=== PATIENT | male | born 1965 | race Caucasian/White ===

== ENCOUNTER 2017-07-23 12:50 | Emergency (ER) | payer MEDICARE ==
--- NOTE | 2017-07-23 13:18 | ERPHSYRPT ---
- History of Present Illness Time Seen by Provider: 07/23/17 13:07 Source: patient Exam Limitations: no limitations Patient Subjective Stated Complaint: pt here for a fall. pt states that stool gave out and he fell but states that he leaned over and fell, states [facility] put him on klonopin and he can not take it, but took it anyway. he states it made him sleepy. been on klonopin since wednesday.pt had recent dui. and out of half-way since april Triage Nursing Assessment: pt alert, slow to respond,walked in, resp easy, skin w/d,pink. no edema noted, knows birthday but not date today, states pt is alcoholic. Physician History: 51-year-old white male with history of schizophrenia, depression, borderline personality disorder, memory problems. Brought with his with complaint that the patient has been falling for 2 days she states that he has been placed on Klonopin. She states that she found him with a blue substance in the left side of his nose the other day. patient really denies any complaints that he feels like he is probably having an effect of Klonopin he recently been placed on Patient does have a history of alcoholism Past medical history patient denies heart problems lung problems high blood pressure diabetes kidney problems or liver problems he does state he has a history of alcoholism history of schizophrenia, depression, borderline personality disorder, and memory problems Timing/Duration: yesterday Severity: moderate Modifying Factors: Improves With: nothing Associated Symptoms: No nausea, No vomiting, No abdominal pain, No shortness of breath, No heartburn, No diaphoresis, No cough, No chills, No chest pain, No fever, No headaches, No loss of appetite, No malaise, No rash, No syncope, No seizure, No weakness Allergies/Adverse Reactions: No Known Drug Allergies Allergy (Unverified 07/23/17 13:07) Home Medications: HydrALAzine HCL 25 MG TAB [Apresoline 25 MG TABLET] 25 mg pe TID 07/23/17 [History] Mirtazapine [Remeron] 15 mg DAILY 07/23/17 [History] Olanzapine [Zyprexa] 20 mg DAILY 07/23/17 [History] Hx Influenza Vaccination/Date Given: Yes Hx Pneumococcal Vaccination/Date Given: No Immunizations Up to Date: Yes - Review of Systems Constitutional: No Fever, No Chills Eyes: No Symptoms Ears, Nose, & Throat: No Symptoms Respiratory: No Cough, No Dyspnea Cardiac: No Chest Pain, No Edema, No Syncope Abdominal/Gastrointestinal: No Abdominal Pain, No Nausea, No Vomiting, No Diarrhea Genitourinary Symptoms: No Dysuria Musculoskeletal: No Arthralgias, No Back Pain, No Neck Pain, No Deformity, No Fall, No Injury, No Joint Redness, No Joint Pain, No Joint Swelling, No Myalgias Skin: No Rash Neurological: Other (patient's states that the patient has been falling, states that he will lay down whereever and fall asleep), No Dizziness, No Focal Weakness, No Gait Changes, No Headache, No Irritability, No Lethargy, No Paralysis, No Parasthesia, No Seizure, No Sensory Changes, No Speech Changes, No Tics, No Tremors Psychological: Alcohol Abuse Endocrine: No Symptoms All Other Systems: Reviewed and Negative - Past Medical History Pertinent Past Medical History: Yes Neurological History: Other Psycho-Social History: Anxiety, Bipolar, Depression, Other Other Medical History: schizo ,memory issues - Past Surgical History Past Surgical History: Yes Other Surgical History: eye surgeryx2 hand surgery - Social History Smoking Status: Never smoker Exposure to second hand smoke: No Drug Use: none Patient Lives Alone: No - Nursing Vital Signs Nursing Vital Signs: Initial Vital Signs Temperature 97.9 F 07/23/17 12:57 Pulse Rate 72 07/23/17 12:57 Respiratory Rate 18 07/23/17 12:57 Blood Pressure 123/71 07/23/17 12:57 O2 Sat by Pulse Oximetry 93 L 07/23/17 12:57 Pain Scale Pain Intensity 0 - Physical Exam General Appearance: no apparent distress, alert Eye Exam: PERRL/EOMI, eyes nml inspection Ears, Nose, Throat Exam: normal ENT inspection, TMs normal, pharynx normal, moist mucous membranes Neck Exam: normal inspection, non-tender, supple, full range of motion Respiratory Exam: normal breath sounds, lungs clear, No respiratory distress Cardiovascular Exam: regular rate/rhythm, normal heart sounds, normal peripheral pulses Gastrointestinal/Abdomen Exam: soft Back Exam: normal inspection, normal range of motion, No CVA tenderness, No vertebral tenderness Extremity Exam: normal inspection, normal range of motion, pelvis stable Neurologic Exam: alert, cooperative, labor delivery rn II-XII nml as tested, normal mood/ affect, nml cerebellar function, No oriented x 3 (oriented to person and place) , No motor deficits, No sensory deficit, No facial droop, No slurred speech Skin Exam: normal color, warm, dry, No rash SpO2 Interpretation: normal (93%) SpO2: 93 Oxygen Delivery: Room Air - Course Nursing assessment & vital signs reviewed: Yes EKG Interpreted by Me: RATE (65 bpm), Sinus Rhythm, NORMAL AXIS, Other (EKG: Sinus rhythm, 65 beats per minute, normal axis, no acute ST or T wave changes noted) Ordered Tests: Active Orders 24 hr Category Date Time Status Accucheck STAT Care 07/23/17 13:12 Active EKG-ER Only STAT Care 07/23/17 13:12 Active ACETAMINOPHEN Stat Lab 07/23/17 13:20 Completed CBC W DIFF Stat Lab 07/23/17 13:20 Completed CMP Stat Lab 07/23/17 13:20 Completed ETHYL ALCOHOL Stat Lab 07/23/17 13:20 Completed SALICYLATE Stat Lab 07/23/17 13:20 Completed UA W/RFX UR CULTURE Stat Lab 07/23/17 13:20 Completed Urine Triage Profile Stat Lab 07/23/17 13:20 Completed Lab/Rad Data: Laboratory Result Diagrams 07/23/17 13:20 07/23/17 13:20 Laboratory Results 07/23/17 07/23/17 07/23/17 Range/Units 13:20 13:20 13:20 WBC (4.0-10.5) K/mm3 RBC (4.1-5.6) M/mm3 Hgb (12.5-18.0) gm/dl Hct (42-50) % MCV (78-100) fl MCH (26-32) pg MCHC (32-36) g/dl RDW (11.5-14.0) % Plt Count (150-450) K/mm3 MPV (6-9.5) fl Gran % (36.0-66.0) % Lymphocytes % (24.0-44.0) % Monocytes % (0.0-12.0) % Eosinophils % (0.00-5.0) % Basophils % (0.0-0.4) % Basophils # (0-0.4) Sodium 144 (136-145) mEq/L Potassium 3.8 (3.5-5.1) mEq/L Chloride 108 H (98-107) mEq/L Carbon Dioxide 24.8 (21-32) mEq/L Anion Gap 14.9 (5-15) MEQ/L BUN 15 (9-20) mg/dL Creatinine 1.36 H (0.55-1.30) mg/dl Estimated GFR 58 ML/MIN Glucose 101 (70-110) MG/DL Calcium 8.7 (8.5-10.1) mg/dL Total Bilirubin 0.40 (0.2-1.0) mg/dL AST 23 (15-37) U/L ALT 49 (12-78) U/L Alkaline Phosphatase 69 (46-116) U/L Serum Total Protein 6.7 (6.4-8.2) gm/dL Albumin 3.6 (3.4-5.0) g/dL Ur Collection Type VOID Urine Color YELLOW (YELLOW) Urine Appearance CLEAR (CLEAR) Urine pH 5.0 (5-6) Ur Specific [place] 1.015 (1.005-1.025) Urine Protein NEGATIVE (Negative) Urine Ketones NEGATIVE (NEGATIVE) Urine Blood NEGATIVE (0-5) Akira/ul Urine Nitrite NEGATIVE (NEGATIVE) Urine Bilirubin NEGATIVE (NEGATIVE) Urine Urobilinogen NORMAL (0-1) mg/dL Ur Leukocyte Esterase NEGATIVE (NEGATIVE) Urine Culture Reflexed NO (NO) Urine Glucose NEGATIVE (NEGATIVE) mg/dL Salicylates < 2.8 L (2.8-20.0) mg/dl Urine Opiates Level NEG. (NEGATIVE) Ur Methadone NEG. (NEGATIVE) Acetaminophen < 2.0 L (10-30) ug/ml Urine Barbiturates NEG. (NEGATIVE) Ur Phencyclidine (PCP) NEG. (NEGATIVE) Urine Amphetamine NEG. (NEGATIVE) U Benzodiazepine Level POS. (NEGATIVE) Urine Cocaine NEG. (NEGATIVE) Urine Marijuana (THC) NEG. (NEGATIVE) Ethyl Alcohol < 0.010 (0.00-0.01) % Specimen Received 07/23/17 1315 07/23/17 Range/Units 13:20 WBC 7.9 (4.0-10.5) K/mm3 RBC 4.35 (4.1-5.6) M/mm3 Hgb 13.6 (12.5-18.0) gm/dl Hct 41.6 L (42-50) % MCV 95.6 (78-100) fl MCH 31.3 (26-32) pg MCHC 32.7 (32-36) g/dl RDW 13.3 (11.5-14.0) % Plt Count 258 (150-450) K/mm3 MPV 10.2 H (6-9.5) fl Gran % 66.3 H (36.0-66.0) % Lymphocytes % 22.2 L (24.0-44.0) % Monocytes % 9.2 (0.0-12.0) % Eosinophils % 1.9 (0.00-5.0) % Basophils % 0.4 (0.0-0.4) % Basophils # 0.03 (0-0.4) Sodium (136-145) mEq/L Potassium (3.5-5.1) mEq/L Chloride (98-107) mEq/L Carbon Dioxide (21-32) mEq/L Anion Gap (5-15) MEQ/L BUN (9-20) mg/dL Creatinine (0.55-1.30) mg/dl Estimated GFR ML/MIN Glucose (70-110) MG/DL Calcium (8.5-10.1) mg/dL Total Bilirubin (0.2-1.0) mg/dL AST (15-37) U/L ALT (12-78) U/L Alkaline Phosphatase (46-116) U/L Serum Total Protein (6.4-8.2) gm/dL Albumin (3.4-5.0) g/dL Ur Collection Type Urine Color (YELLOW) Urine Appearance (CLEAR) Urine pH (5-6) Ur Specific [place] (1.005-1.025) Urine Protein (Negative) Urine Ketones (NEGATIVE) Urine Blood (0-5) Akira/ul Urine Nitrite (NEGATIVE) Urine Bilirubin (NEGATIVE) Urine Urobilinogen (0-1) mg/dL Ur Leukocyte Esterase (NEGATIVE) Urine Culture Reflexed (NO) Urine Glucose (NEGATIVE) mg/dL Salicylates (2.8-20.0) mg/dl Urine Opiates Level (NEGATIVE) Ur Methadone (NEGATIVE) Acetaminophen (10-30) ug/ml Urine Barbiturates (NEGATIVE) Ur Phencyclidine (PCP) (NEGATIVE) Urine Amphetamine (NEGATIVE) U Benzodiazepine Level (NEGATIVE) Urine Cocaine (NEGATIVE) Urine Marijuana (THC) (NEGATIVE) Ethyl Alcohol (0.00-0.01) % Specimen Received - Progress Progress: improved Progress Note: 07/23/17 14:08 51-year-old white male noted to be a somnolent sleeping in various places falling and going on for several days. Patient apparently has been taking Clonopin when she is according to his not supposed to be on. When I talk to the patient is alert he is oriented person and place she really doesn't know the time he has full range of motion all extremities surveillance system monitor are equal and symmetrical 5 over 5 speech is normal finger-nose within normal limits cranial nerves II through XII are intact there is no facial droop. Patient's EKG sinus rhythm 54 beats per minutes normal axis no acute ST or T wave changes are noted Patients CBC essentially normal chemistry is essentially normal with the exception of a creatinine of 1.36 BUN is 15 acetaminophen level of is less than 2 salicylate level less than 2.8 alcohol level less than 0.010 urine drug screen positive for benzodiazepine The patient's nurse practitioner at [facility] Madeleine Morrison has called over she states that the patient was not supposed to be on Klonopin he is to stop taking it. She also requested that he decreases hydroxyzine from 25 mg orally 3 times a day to 25 mg orally daily. Patient denies any suicidal or homicidal ideation. - Departure Time of Disposition: 14:11 Departure Disposition: Home Clinical Impression: Mental status change Qualifiers: Altered mental status type: unspecified Qualified Code(s): R41.82 - Altered mental status, unspecified Medication side effect Qualifiers: Encounter type: initial encounter Qualified Code(s): T88.7XXA - Unspecified adverse effect of drug or medicament, initial encounter Condition: Fair Critical Care Time: No Referrals: MICHAEL GILMAN, [Primary Care Provider] - Additional Instructions: Return home. No driving today no hazardous activity no heights do not engage in any activity which may harm you or anyone else. Stop Klonopin. Decrease hydroxyzine to 25 mg orally daily. Continue other medications as prescribed by your family doctor/psychiatrist. Plenty of fluids. Rest at home today. Follow-up with [facility] at your appointment return for acute distress or for severe symptoms. .
[2017-07-23 13:36] LABS: BASOPHIL % 0.4 % (0.0-0.4); Eosinophil % 1.9 % (0.00-5.0); Granulocytes % 66.3 % (36.0-66.0); Lymphocytes % 22.2 % (24.0-44.0); Mean Cell Volume 95.6 fl (78-100); Mean Corpuscular Hemoglobin 31.3 pg (26-32); Mean Platelet Volume 10.2 fl (6-9.5); Monocytes % 9.2 % (0.0-12.0); Platelet Count 258 K/mm3 (150-450); Red Blood Count 4.35 M/mm3 (4.1-5.6); Red Cell Distribution Width 13.3 % (11.5-14.0); White Blood Count 7.9 K/mm3 (4.0-10.5)
[2017-07-23 13:38] LABS: Collection Type VOID
[2017-07-23 13:39] LABS: ADD URINE CULTURE? NO (NO); Bilirubin NEGATIVE (NEGATIVE); Blood NEGATIVE Ery/ul (0-5); COMPLETE URINE MICROSCOPIC? NO; Glucose NEGATIVE (NEGATIVE); Leukocyte Esterase NEGATIVE (NEGATIVE)
[2017-07-23 13:55] LABS: ACETAMINOPHEN < 2.0 ug/ml (10-30); ALBUMIN 3.6 g/dL (3.4-5.0); ALKALINE PHOSPHATASE 69 U/L (46-116); ANION GAP 14.9 MEQ/L (5-15); BLOOD UREA NITROGEN 15 mg/dL (9-20); CHLORIDE 108 mEq/L (98-107); Carbon Dioxide 24.8 mEq/L (21-32); ETHYL ALCOHOL < 0.010 % (0.00-0.01); Glucose 101 MG/DL (70-110); Potassium 3.8 mEq/L (3.5-5.1); SGOT/AST 23 U/L (15-37); SGPT/ALT 49 U/L (12-78); SODIUM 144 mEq/L (136-145); Total Protein 6.7 gm/dL (6.4-8.2)
[2017-07-23 14:41] VITALS: BP 121/73; PULSE 69; O2SAT 95
== END 2017-07-23 14:20 | disposition home or self-care (01) ==
LOC: ED 12:50
DX: R41.82 Altered mental status, unspecified (principal); T88.7XXA Unspecified adverse effect of drug or medicament, initial encounter
CPT/HCPCS: 36415; 80053; 80307; 81002; 82962; 85025; 93005; 99283; 99284; G0481

== ENCOUNTER 2021-02-26 10:26 | Day surgery (SDC) | payer MEDICARE ==
[2021-02-26] MEDS ORDERED: Xylocaine 1% Vial 30 ML PF IJ ONE (10:27)
[2021-02-26] MEDS ORDERED: Depo-Medrol 40 MG/ML IM ONE (10:27)
[2021-02-26] MEDS ORDERED: Sodium Chloride 0.9(Preservative Free) 10 ML IJ ONE (10:27)
[2021-02-26] MEDS ORDERED: DIPRIVAN 200 MG/20 ML IV ONE (11:20)
--- NOTE | 2021-02-26 12:37 | XRAY ---
Indication: Lumbar JF. Intraoperative fluoroscopy provided for 17 seconds. Single lateral digital spot submitted for interpretation demonstrates posterior needle tip projecting just posterior to the L4-L5 interspace. Small amount of contrast injected for needle tip placement. Correlate with intraoperative findings/report.
--- NOTE | 2021-02-26 12:43 | XRAY ---
17 seconds fluoroscopy time in surgery for lumbar JF.
[2021-02-26] MEDS ORDERED: Lactated Ringers 1,000 ML IV ONE (15:28)
== END 2021-02-26 11:52 | disposition home or self-care (01) ==
LOC: SDC-PAIN 10:26
PROVIDERS: ATTEND Psychiatry & Neurology Pain Medicine
DX: M54.16 Radiculopathy, lumbar region (principal); Z79.899 Other long term (current) drug therapy
CPT/HCPCS: 62323; 72020; 77003; J1030; J2001; J2704; Q9966

== ENCOUNTER 2021-03-19 09:52 | Day surgery (SDC) | payer MEDICARE ==
[2021-03-19] MEDS ORDERED: Depo-Medrol 40 MG/ML IM ONE (09:53)
[2021-03-19] MEDS ORDERED: LIDOCAINE HCL 2% 100 MG/5 ML IJ ONE (09:53)
--- NOTE | 2021-03-19 13:10 | XRAY ---
Indication: Bilateral L4-S1 MBB. Intraoperative fluoroscopy provided for 21 seconds. Single digital spot image submitted for interpretation demonstrate posterior needle tips projecting over the expected left and right L4-S1 nerve roots. Correlate with intraoperative findings/report.
--- NOTE | 2021-03-19 13:15 | XRAY ---
21 seconds fluoroscopy time in surgery for bilateral L4-S1 MBB.
[2021-03-19] MEDS ORDERED: Lactated Ringers 1,000 ML IV ONE (15:40)
== END 2021-03-19 11:51 | disposition home or self-care (01) ==
LOC: SDC-PAIN 09:52
PROVIDERS: ATTEND Psychiatry & Neurology Pain Medicine
DX: M47.816 Spondylosis without myelopathy or radiculopathy, lumbar region (principal); F41.9 Anxiety disorder, unspecified; F32.9 Major depressive disorder, single episode, unspecified; Z79.899 Other long term (current) drug therapy
CPT/HCPCS: 64493; 64494; 72020; 77002; J1030

== ENCOUNTER 2021-04-24 13:26 | Emergency (ER) | payer MEDICARE ==
--- NOTE | 2021-04-24 13:36 | ERPHSYRPT ---
- History of Present Illness Time Seen by Provider: 04/24/21 13:35 Source: patient Exam Limitations: no limitations Physician History: This is a 55-year-old obese white male who presents with weakness and cough over of 4-week period of time. He has been seen 3 times in the outpatient clinic setting. Patient states his cough is improving but he just feels drained. He has had no fevers or chills. He has no chest pain. He has no abdominal pain. He has had no nausea vomiting or diarrhea. He was seen last Wednesday prior to this evaluation, and COVID-19 test returned as negative. However he is still fatigued. His significant other has similar symptoms. Timing/Duration: week(s) (4) Severity: mild Associated Symptoms: cough, weakness, No nausea (To moderate), No vomiting, No abdominal pain, No shortness of breath, No chest pain Allergies/Adverse Reactions: No Known Drug Allergies Allergy (Unverified 07/23/17 13:07) Home Medications: HydrALAzine HCL 25 MG TAB [Apresoline 25 MG TABLET] 25 mg pe TID 07/23/17 [History] Mirtazapine [Remeron] 15 mg DAILY 07/23/17 [History] OLANZapine [Zyprexa] 20 mg DAILY 07/23/17 [History] Hx Influenza Vaccination/Date Given: Yes Hx Pneumococcal Vaccination/Date Given: No Travel Risk - International Travel Have you traveled outside of the country in past 3 weeks: No - Coronavirus Screening Are you exhibiting any of the following symptoms?: No Symptoms: Cough: New Onset - Review of Systems Constitutional: Weakness Eyes: No Symptoms Ears, Nose, & Throat: No Symptoms Respiratory: Cough Cardiac: No Symptoms Abdominal/Gastrointestinal: No Symptoms Genitourinary Symptoms: No Symptoms Musculoskeletal: No Symptoms Skin: No Symptoms Neurological: No Symptoms Psychological: No Symptoms Endocrine: No Symptoms Hematologic/Lymphatic: No Symptoms Immunological/Allergic: No Symptoms All Other Systems: Reviewed and Negative - Past Medical History Pertinent Past Medical History: Yes Neurological History: No Pertinent History Cardiac History: High Cholesterol Respiratory History: No Pertinent History Endocrine Medical History: No Pertinent History Musculoskeletal History: Degenerative Disk Disease Psycho-Social History: Anxiety, Bipolar, Depression, Other Other Medical History: SCHIZOPHRENIA, ANXIETY/DEPRESSION, ROSUVASTATIN, BUPROPRION HCL, GERD. SX HX: RIGHT HAND SURGERY DUE TO TRAUMA HYPOTHENAR REGION. 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 - Past Surgical History Past Surgical History: Yes Other Surgical History: eye surgeryx2 hand surgery - Social History Smoking Status: Never smoker Exposure to second hand smoke: No Drug Use: none Patient Lives Alone: No - Nursing Vital Signs Nursing Vital Signs: Initial Vital Signs Temperature 97.0 F 04/24/21 13:44 Pulse Rate 73 04/24/21 13:44 Respiratory Rate 20 04/24/21 13:44 Blood Pressure 106/67 04/24/21 13:44 O2 Sat by Pulse Oximetry 96 04/24/21 13:44 Pain Scale Pain Intensity 0 - Physical Exam General Appearance: no apparent distress, alert, anxiety, obese Eye Exam: PERRL/EOMI, eyes nml inspection Ears, Nose, Throat Exam: normal ENT inspection, moist mucous membranes Neck Exam: normal inspection, non-tender, supple, full range of motion Respiratory Exam: normal breath sounds, lungs clear, airway intact, No chest tenderness, No respiratory distress Cardiovascular Exam: regular rate/rhythm, normal heart sounds, normal peripheral pulses Gastrointestinal/Abdomen Exam: soft, normal bowel sounds, No tenderness, No guarding Rectal Exam: not done Back Exam: normal inspection, normal range of motion, No CVA tenderness, No v ertebral tenderness Extremity Exam: normal inspection, normal range of motion, pelvis stable Neurologic Exam: alert, oriented x 3, cooperative, windows infrastructure engineer II-XII nml as tested, normal mood/affect, nml cerebellar function, nml station & gait, sensation nml Skin Exam: normal color, warm, dry Lymphatic Exam: No adenopathy SpO2 Interpretation: normal O2 Delivery: Room Air - Course Nursing assessment & vital signs reviewed: Yes Ordered Tests: Active Orders 24 hr Category Date Time Status Chief Medical Technologist STAT Care 04/24/21 14:12 Active EKG-ER Only STAT Care 04/24/21 14:11 Active IV Insertion STAT Care 04/24/21 14:11 Active IV Insertion STAT Care 04/24/21 14:11 Active Pulse Oximetry (ED) STAT Care 04/24/21 14:11 Active CHEST 1 VIEW (PORTABLE) Stat Exams 04/24/21 14:12 Completed CBC W DIFF Stat Lab 04/24/21 14:45 Completed CMP Stat Lab 04/24/21 14:45 Completed D-DIMER QUANTITATIVE Stat Lab 04/24/21 14:45 Completed Lactic Acid Stat Lab 04/24/21 14:11 Completed Lactic Acid Stat Lab 04/24/21 17:10 Received Kay Screen Stat Lab 04/24/21 14:45 Completed NT PRO BNP Stat Lab 04/24/21 14:45 Completed T4 (Thyroxine) Stat Lab 04/24/21 14:45 Completed TROPONIN Q3H Lab 04/24/21 14:45 Completed TROPONIN Q3H Lab 04/24/21 17:15 Ordered TROPONIN Q3H Lab 04/24/21 20:15 Ordered TROPONIN Q3H Lab 04/24/21 23:15 Ordered TROPONIN Q3H Lab 04/25/21 02:15 Ordered TSH [TSH, 3RD Generation] Stat Lab 04/24/21 14:45 Completed UA W/RFX UR CULTURE Stat Lab 04/24/21 16:03 Completed Urine Triage Profile Stat Lab 04/24/21 16:03 Ordered Medication Summary Discontinued Medications Generic Name Dose Route Start Last Admin Trade Name Zunilda PRN Reason Stop Dose Admin Sodium Chloride 1,000 mls @ 999 mls/hr 04/24/21 14:11 04/24/21 17:15 Sodium Chloride 0.9% 1000 Ml IV 04/24/21 15:11 Infused .Q1H1M STA Infusion Sodium Chloride Confirm 04/24/21 15:13 Sodium Chloride 0.9% 1000 Ml Administered 04/24/21 15:14 Dose 1,000 mls @ ud .ROUTE .K-MED ONE Lab/Rad Data: Laboratory Result Diagrams 04/24/21 14:45 04/24/21 14:45 Laboratory Results 04/24/21 04/24/21 04/24/21 Range/Units 16:03 14:45 14:45 WBC (4.0-10.5) K/mm3 RBC (4.1-5.6) M/mm3 Hgb (12.5-18.0) gm/dl Hct (42-50) % MCV (78-100) fl MCH (26-32) pg MCHC (32-36) g/dl RDW (11.5-14.0) % Plt Count (150-450) K/mm3 MPV (7.5-11.0) fl Gran % (36.0-66.0) % Eos # (Auto) (0-0.5) Absolute Lymphs (auto) (1.0-4.6) Absolute Monos (auto) (0.0-1.3) Lymphocytes % (24.0-44.0) % Monocytes % (0.0-12.0) % Eosinophils % (0.00-5.0) % Basophils % (0.0-0.4) % Absolute Granulocytes (1.4-6.9) Basophils # (0-0.4) D-Dimer (215-500) ng/mL Sodium (137-145) mmol/L Potassium (3.5-5.1) mmol/L Chloride (98-107) mmol/L Carbon Dioxide (22-30) mmol/L Anion Gap (5-15) MEQ/L BUN (9-20) mg/dL Creatinine (0.66-1.25) mg/dL Estimated GFR ML/MIN Glucose (74-106) mg/dL Lactic Acid (0.4-2.0) Calcium (8.4-10.2) mg/dL Total Bilirubin (0.2-1.3) mg/dL AST (17-59) U/L ALT (0-50) U/L Alkaline Phosphatase (38-126) U/L Troponin I (0.000-0.034) ng/mL NT-Pro-B Natriuret Pep (0-900) pg/mL Serum Total Protein (6.3-8.2) g/dL Albumin (3.5-5.0) g/dL Thyroxine (T4) 10.7 (5.53-10.96) ug/dL TSH 3rd Generation (0.47-4.68) mIU/L Urine Color YELLOW (YELLOW) Urine Appearance CLEAR (CLEAR) Urine pH 5.0 (5-6) Ur Specific [place] 1.020 (1.005-1.025) Urine Protein NEGATIVE (Negative) Urine Ketones SMALL (NEGATIVE) Urine Blood NEGATIVE (0-5) Akira/ul Urine Nitrite NEGATIVE (NEGATIVE) Urine Bilirubin NEGATIVE (NEGATIVE) Urine Urobilinogen NEGATIVE (0-1) mg/dL Ur Leukocyte Esterase NEGATIVE (NEGATIVE) Urine WBC (Auto) 0-2 (0-5) /HPF Urine RBC (Auto) NONE (0-2) /HPF U Epithel Cells (Auto) NONE (FEW) /HPF Urine Mucus (Auto) SLIGHT (NEGATIVE) /HPF Urine Culture Reflexed NO (NO) Urine Glucose NEGATIVE (NEGATIVE) mg/dL Monoscreen POSITIVE (Negative) 04/24/21 04/24/21 04/24/21 Range/Units 14:45 14:45 14:45 WBC (4.0-10.5) K/mm3 RBC (4.1-5.6) M/mm3 Hgb (12.5-18.0) gm/dl Hct (42-50) % MCV (78-100) fl MCH (26-32) pg MCHC (32-36) g/dl RDW (11.5-14.0) % Plt Count (150-450) K/mm3 MPV (7.5-11.0) fl Gran % (36.0-66.0) % Eos # (Auto) (0-0.5) Absolute Lymphs (auto) (1.0-4.6) Absolute Monos (auto) (0.0-1.3) Lymphocytes % (24.0-44.0) % Monocytes % (0.0-12.0) % Eosinophils % (0.00-5.0) % Basophils % (0.0-0.4) % Absolute Granulocytes (1.4-6.9) Basophils # (0-0.4) D-Dimer < 215 L (215-500) ng/mL Sodium (137-145) mmol/L Potassium (3.5-5.1) mmol/L Chloride (98-107) mmol/L Carbon Dioxide (22-30) mmol/L Anion Gap (5-15) MEQ/L BUN (9-20) mg/dL Creatinine (0.66-1.25) mg/dL Estimated GFR ML/MIN Glucose (74-106) mg/dL Lactic Acid (0.4-2.0) Calcium (8.4-10.2) mg/dL Total Bilirubin (0.2-1.3) mg/dL AST (17-59) U/L ALT (0-50) U/L Alkaline Phosphatase (38-126) U/L Troponin I < 0.012 (0.000-0.034) ng/mL NT-Pro-B Natriuret Pep (0-900) pg/mL Serum Total Protein (6.3-8.2) g/dL Albumin (3.5-5.0) g/dL Thyroxine (T4) (5.53-10.96) ug/dL TSH 3rd Generation 2.690 (0.47-4.68) mIU/L Urine Color (YELLOW) Urine Appearance (CLEAR) Urine pH (5-6) Ur Specific [place] (1.005-1.025) Urine Protein (Negative) Urine Ketones (NEGATIVE) Urine Blood (0-5) Akira/ul Urine Nitrite (NEGATIVE) Urine Bilirubin (NEGATIVE) Urine Urobilinogen (0-1) mg/dL Ur Leukocyte Esterase (NEGATIVE) Urine WBC (Auto) (0-5) /HPF Urine RBC (Auto) (0-2) /HPF U Epithel Cells (Auto) (FEW) /HPF Urine Mucus (Auto) (NEGATIVE) /HPF Urine Culture Reflexed (NO) Urine Glucose (NEGATIVE) mg/dL Monoscreen (Negative) 04/24/21 04/24/21 04/24/21 Range/Units 14:45 14:45 14:11 WBC 12.7 H (4.0-10.5) K/mm3 RBC 4.46 (4.1-5.6) M/mm3 Hgb 14.4 (12.5-18.0) gm/dl Hct 44.2 (42-50) % MCV 99.1 (78-100) fl MCH 32.3 H (26-32) pg MCHC 32.6 (32-36) g/dl RDW 14.8 H (11.5-14.0) % Plt Count 263 (150-450) K/mm3 MPV 9.7 (7.5-11.0) fl Gran % 75.5 H (36.0-66.0) % Eos # (Auto) 0.11 (0-0.5) Absolute Lymphs (auto) 1.97 (1.0-4.6) Absolute Monos (auto) 1.00 (0.0-1.3) Lymphocytes % 15.5 L (24.0-44.0) % Monocytes % 7.9 (0.0-12.0) % Eosinophils % 0.9 (0.00-5.0) % Basophils % 0.2 (0.0-0.4) % Absolute Granulocytes 9.63 H (1.4-6.9) Basophils # 0.02 (0-0.4) D-Dimer (215-500) ng/mL Sodium 139 (137-145) mmol/L Potassium 4.2 (3.5-5.1) mmol/L Chloride 103 (98-107) mmol/L Carbon Dioxide 22 (22-30) mmol/L Anion Gap 18.0 H (5-15) MEQ/L BUN 18 (9-20) mg/dL Creatinine 1.24 (0.66-1.25) mg/dL Estimated GFR > 60.0 ML/MIN Glucose 123 H (74-106) mg/dL Lactic Acid 2.7 H (0.4-2.0) Calcium 9.6 (8.4-10.2) mg/dL Total Bilirubin 0.50 (0.2-1.3) mg/dL AST 72 H (17-59) U/L ALT 201 H (0-50) U/L Alkaline Phosphatase 101 (38-126) U/L Troponin I (0.000-0.034) ng/mL NT-Pro-B Natriuret Pep 23.5 (0-900) pg/mL Serum Total Protein 7.3 (6.3-8.2) g/dL Albumin 4.3 (3.5-5.0) g/dL Thyroxine (T4) (5.53-10.96) ug/dL TSH 3rd Generation (0.47-4.68) mIU/L Urine Color (YELLOW) Urine Appearance (CLEAR) Urine pH (5-6) Ur Specific [place] (1.005-1.025) Urine Protein (Negative) Urine Ketones (NEGATIVE) Urine Blood (0-5) Akira/ul Urine Nitrite (NEGATIVE) Urine Bilirubin (NEGATIVE) Urine Urobilinogen (0-1) mg/dL Ur Leukocyte Esterase (NEGATIVE) Urine WBC (Auto) (0-5) /HPF Urine RBC (Auto) (0-2) /HPF U Epithel Cells (Auto) (FEW) /HPF Urine Mucus (Auto) (NEGATIVE) /HPF Urine Culture Reflexed (NO) Urine Glucose (NEGATIVE) mg/dL Monoscreen (Negative) - Progress Progress: improved, re-examined Progress Note: 07/15/21 15:54 Chest x-ray shows no obvious acute infiltrate. The left costophrenic angle is not completely included in the film. Counseled pt/family regarding: lab results, diagnosis, need for follow-up, rad results - Departure Departure Disposition: Home Clinical Impression: Mononucleosis, Viral syndrome Condition: Stable Critical Care Time: No Referrals: JAVI BEJARANO [Primary Care Provider] - Additional Instructions: Drink plenty of fluids. Take your medication as prescribed. Follow-up with your primary care physician for further management.
[2021-04-24] MEDS ORDERED: Sodium Chloride 0.9% 1000 ML 1,000 ML IV STA (14:11)
--- NOTE | 2021-04-24 14:52 | XRAY ---
Indication: Cough. Comparison: April 11, 2021. Portable chest is limited as left costophrenic angle not completely included. Remaining heart and lungs normal. Bony thorax intact again with mild degenerative changes.
[2021-04-24 14:54] LABS: Absolute Neutrophil Ct (ANC) 9.63 (1.4-6.9); BASOPHIL % 0.2 % (0.0-0.4); Basophil (Absolute #) 0.02 (0-0.4); Eosinophil % 0.9 % (0.00-5.0); Eosinophil (Absolute #) 0.11 (0-0.5); Hematocrit 44.2 % (42-50); Hemoglobin 14.4 gm/dl (12.5-18.0); Lymphocyte (Absolute #) 1.97 (1.0-4.6); Lymphocytes % 15.5 % (24.0-44.0); Mean Cell Volume 99.1 fl (78-100); Mean Corpuscular Hemoglobin 32.3 pg (26-32); Mean Corpuscular Hgb Concent. 32.6 g/dl (32-36); Mean Platelet Volume 9.7 fl (7.5-11.0); Monocytes % 7.9 % (0.0-12.0); Neutrophil % 75.5 % (36.0-66.0); Platelet Count 263 K/mm3 (150-450); Red Blood Count 4.46 M/mm3 (4.1-5.6); Red Cell Distribution Width 14.8 % (11.5-14.0); White Blood Count 12.7 K/mm3 (4.0-10.5)
[2021-04-24] MEDS ORDERED: Sodium Chloride 0.9% 1000 ML 1,000 ML ONE (15:13)
[2021-04-24 15:15] LABS: ALBUMIN 4.3 g/dL (3.5-5.0); ALKALINE PHOSPHATASE 101 U/L (38-126); BLOOD UREA NITROGEN 18 mg/dL (9-20); CHLORIDE 103 mmol/L (98-107); Calcium 9.6 mg/dL (8.4-10.2); Carbon Dioxide 22 mmol/L (22-30); Creatinine 1 1.24 mg/dL (0.66-1.25); EST GLOMERULAR FILTRATION RATE > 60.0 ML/MIN; Glucose 123 mg/dL (74-106); NT PRO BNP 23.5 pg/mL (0-900); Potassium 4.2 mmol/L (3.5-5.1); SGOT/AST 72 U/L (17-59); SGPT/ALT 201 U/L (0-50); SODIUM 139 mmol/L (137-145); Total Protein 7.3 g/dL (6.3-8.2)
[2021-04-24 16:31] LABS: Appearance CLEAR (CLEAR); Bilirubin NEGATIVE (NEGATIVE); Blood NEGATIVE Ery/ul (0-5); Glucose NEGATIVE (NEGATIVE); Ketones SMALL (NEGATIVE); Leukocyte Esterase NEGATIVE (NEGATIVE); Mucus SLIGHT /HPF (NEGATIVE); Nitrite NEGATIVE (NEGATIVE); Protein,Urine Dip NEGATIVE (Negative); Urobilinogen NEGATIVE mg/dL (0-1); WBC 0-2 /HPF (0-5)
[2021-04-24 17:46] LABS: Amphetamine,Urine NEGATIVE (NEGATIVE); Barbiturate,Urine NEGATIVE (NEGATIVE); Benzodiazepine,Urine NEGATIVE (NEGATIVE); Cocaine,Urine NEGATIVE (NEGATIVE); Methadone,Urine NEGATIVE (NEGATIVE); Opiate,Urine NEGATIVE (NEGATIVE); PCP,Urine NEGATIVE (NEGATIVE); THC,Urine NEGATIVE (NEGATIVE)
[2021-04-24 18:28] VITALS: BP 137/83; PULSE 70; O2SAT 94
== END 2021-04-24 18:28 | disposition home or self-care (01) ==
LOC: ED 13:26
DX: B27.90 Infectious mononucleosis, unspecified without complication (principal); B34.9 Viral infection, unspecified; R53.1 Weakness; Z79.899 Other long term (current) drug therapy
CPT/HCPCS: 36000; 36415; 71045; 80053; 80307; 81001; 83605; 83880; 84436; 84443; 84484; 85025; 85379; 86308; 93005; 93041; 94760; 96374; 99284

== ENCOUNTER 2021-06-04 13:26 | Day surgery (SDC) | payer MEDICARE ==
[2021-06-04] MEDS ORDERED: BUPIVACAINE 0.5% VIAL IJ ONE (13:27)
[2021-06-04] MEDS ORDERED: Depo-Medrol 40 MG/ML IM ONE (13:27)
[2021-06-04] MEDS ORDERED: Lactated Ringers 1,000 ML IV ONE (14:07)
[2021-06-04] MEDS ORDERED: DIPRIVAN 200 MG/20 ML IV ONE (14:42)
--- NOTE | 2021-06-04 16:58 | XRAY ---
Indication: Bilateral L4-S1 MBB. Intraoperative fluoroscopy provided for 33 seconds. Single digital spot image submitted for interpretation demonstrates posterior needle tips projecting over the expected left and right L4-S1 nerve roots. Correlate with intraoperative findings/report.
--- NOTE | 2021-06-04 17:04 | XRAY ---
33 seconds fluoroscopy time in surgery for bilateral L4-S1 MBB.
== END 2021-06-04 15:15 | disposition home or self-care (01) ==
LOC: SDC-PAIN 13:26
PROVIDERS: ATTEND Psychiatry & Neurology Pain Medicine
DX: M47.816 Spondylosis without myelopathy or radiculopathy, lumbar region (principal); Z79.899 Other long term (current) drug therapy
CPT/HCPCS: 64493; 64494; 72020; 77002; J1030; J2704

== ENCOUNTER 2021-07-02 13:01 | Day surgery (SDC) | payer MEDICARE ==
[2021-07-02] MEDS ORDERED: Depo-Medrol 40 MG/ML IM ONE (13:02)
[2021-07-02] MEDS ORDERED: Xylocaine 1% Vial 30 ML PF IJ ONE (13:02)
[2021-07-02] MEDS ORDERED: BUPIVACAINE 0.5% VIAL IJ ONE (13:02)
[2021-07-02] MEDS ORDERED: DIPRIVAN 200 MG/20 ML IV ONE ×2 (14:44→14:55)
[2021-07-02] MEDS ORDERED: TORAdol 30 mg Injection ONE (15:05)
[2021-07-02] MEDS ORDERED: Lactated Ringers 1,000 ML IV ONE (16:16)
--- NOTE | 2021-07-03 11:20 | XRAY ---
25 seconds fluoroscopy time in surgery for left L4-S1 RFA.
--- NOTE | 2021-07-05 23:00 | XRAY ---
Indication: Left L4-S1 RFA. Intraoperative fluoroscopy was provided for 25 seconds. 3 digital spot images submitted for interpretation demonstrate posterior needle tips projected over the expected course of the left L4-S1 nerve roots. Correlate with intraoperative findings/report.
== END 2021-07-02 15:17 | disposition home or self-care (01) ==
LOC: SDC-PAIN 13:01
PROVIDERS: ATTEND Psychiatry & Neurology Pain Medicine
DX: M47.816 Spondylosis without myelopathy or radiculopathy, lumbar region (principal); Z79.899 Other long term (current) drug therapy
CPT/HCPCS: 64635; 64636; 72100; 77002; J1030; J1885; J2001; J2704

== ENCOUNTER 2021-07-09 12:00 | Day surgery (SDC) | payer MEDICARE ==
[2021-07-09] MEDS ORDERED: BUPIVACAINE 0.5% VIAL IJ ONE (12:01)
[2021-07-09] MEDS ORDERED: Xylocaine 1% Vial 30 ML PF IJ ONE (12:01)
[2021-07-09] MEDS ORDERED: Depo-Medrol 40 MG/ML IM ONE (12:01)
[2021-07-09] MEDS ORDERED: DIPRIVAN 200 MG/20 ML IV ONE (13:35)
[2021-07-09] MEDS ORDERED: TORAdol 30 mg Injection ONE (13:52)
--- NOTE | 2021-07-09 16:28 | XRAY ---
Indication: Right L4-S1 RFA. Intraoperative fluoroscopy provided for 22 seconds. 3 digital spot image submitted for interpretation demonstrates posterior needle tips projecting over the expected right L4-S1 nerve roots. Correlate with intraoperative findings/report.
--- NOTE | 2021-07-09 16:42 | XRAY ---
22 seconds of fluoroscopy was used in surgery for a right L4-S1 RFA.
[2021-07-09] MEDS ORDERED: Lactated Ringers 1,000 ML IV ONE (17:28)
== END 2021-07-09 14:07 | disposition home or self-care (01) ==
LOC: SDC-PAIN 12:00
PROVIDERS: ATTEND Psychiatry & Neurology Pain Medicine
DX: M47.816 Spondylosis without myelopathy or radiculopathy, lumbar region (principal); Z79.899 Other long term (current) drug therapy
CPT/HCPCS: 64635; 64636; 72100; 77002; J1030; J1885; J2001; J2704

== ENCOUNTER 2022-04-01 11:06 | Emergency (ER) | payer MEDICARE ==
[2022-04-01] MEDS ORDERED: PERCOCET TABLET 5/325MG PO ONE (11:12)
[2022-04-01] MEDS ORDERED: BABY ASPIRIN 81 MG CHEW PO ONE (11:12)
[2022-04-01] MEDS ORDERED: Sodium Chloride 0.9% 1000 ML 1,000 ML IV SCH (11:15)
[2022-04-01] MEDS ORDERED: BABY ASPIRIN 81 MG CHEW ONE (11:20)
[2022-04-01] MEDS ORDERED: Sodium Chloride 0.9% 1000 ML 1,000 ML ONE (11:20)
[2022-04-01 11:23] LABS: Absolute Neutrophil Ct (ANC) 7.22 x10^3/uL (1.4-6.9); Basophil (Absolute #) 0.05 x10^3/uL (0-0.4); Eosinophil (Absolute #) 0.11 x10^3/uL (0-0.5); Hematocrit 47.7 % (42-50); Hemoglobin 15.9 g/dL (12.5-18.0); Lymphocyte (Absolute #) 2.73 x10^3/uL (1.0-4.6); Lymphocytes % 24.9 % (24.0-44.0); Mean Corpuscular Hemoglobin 31.7 pg (26-32); Mean Corpuscular Hgb Concent. 33.3 g/dL (32-36); Mean Platelet Volume 9.7 fL (7.5-11.0); Monocyte (Absolute #) 0.82 x10^3/uL (0.0-1.3); Monocytes % 7.5 % (0.0-12.0); Neutrophil % 65.7 % (36.0-66.0); Platelet Count 306 x10^3/uL (150-450); Red Blood Count 5.02 x10^6/uL (4.1-5.6); Red Cell Distribution Width 14.8 % (11.5-14.0)
--- NOTE | 2022-04-01 11:42 | XRAY ---
Indication: Chest pain. Comparison: April 24, 2021. Portable chest again demonstrates minimal left base fibrosis/scarring. No focal infiltrate, consolidation, or large effusion. Heart not enlarged. Bony thorax intact again with mild degenerative changes. Impression: Continue nonacute chest with chronic features.
[2022-04-01 11:48] LABS: ALBUMIN 4.5 g/dL (3.5-5.0); ALKALINE PHOSPHATASE 59 U/L (38-126); AMYLASE 60 U/L (30-110); ANION GAP 14.4 MEQ/L (5-15); BLOOD UREA NITROGEN 13 mg/dL (9-20); CHLORIDE 105 mmol/L (98-107); Calcium 9.5 mg/dL (8.4-10.2); Carbon Dioxide 24 mmol/L (22-30); Creatinine 1 1.08 mg/dL (0.66-1.25); EST GLOMERULAR FILTRATION RATE > 60.0 ML/MIN; Glucose 129 mg/dL (74-106); LIPASE 56 U/L (23-300); MAGNESIUM 2.1 mg/dL (1.6-2.3); NT PRO BNP 39.6 pg/mL (0-900); Potassium 3.7 mmol/L (3.5-5.1); SGOT/AST 31 U/L (17-59); SGPT/ALT 58 U/L (0-50); SODIUM 139 mmol/L (137-145); Total Protein 7.4 g/dL (6.3-8.2)
[2022-04-01 11:49] LABS: INR 0.97 (0.8-3.0); PROTIME 10.3 SECONDS (9.4-12.5)
[2022-04-01 12:33] LABS: D-DIMER QUANTITATIVE 0.19 mg/L (0.0-0.50)
--- NOTE | 2022-04-01 13:28 | XRAY ---
Indication: Chronic cough. Chest and throat tightness 3 months. Multiple contiguous axial images obtained through the chest without contrast. Comparison: None Lungs demonstrates minimal bibasilar fibrosis/scarring and minimal bilateral dependent atelectasis. No suspicious pulmonary mass, infiltrate, effusion, or pneumothorax. Heart not enlarged. Aorta is normal in course and caliber. No pathologic mediastinal lymphadenopathy. Bony thorax intact with minimal degenerative changes throughout the spine. Limited upper abdomen demonstrates fatty liver. Impression: 1. Bibasilar fibrosis/scarring, degenerative spondylosis, and fatty liver. 2. Remaining CT chest without contrast exam is negative.
[2022-04-01 13:30] VITALS: PULSE 52
--- NOTE | 2022-04-01 13:55 | ERPHSYRPT ---
- History of Present Illness Time Seen by Provider: 04/01/22 11:15 Historian: patient Patient Subjective Stated Complaint: Pt c/o of chest pain that radiates to the neck for the past 5 days Triage Nursing Assessment: Pt brought self to the ER, hypertensive, rates pain as 5/10, pulses normal, slight edema to dejan lower extremity, annoying persistant cough, no difficulties with breathing, large round abdomen, doesn't appear to be in any distress Physician History: Patient is a 56-year-old male who presents with chest pain on and off for a week and a half. He has some tightness in his chest that goes up into his neck he is also had a chronic cough for more than a month and is seen his PCP x3 for that. He also has had some shortness of breath some nausea but no diaphoresis and he has had a stress test in the past which was negative risk factors include family history and cholesterol. Timing/Duration: day(s) (10) Quality: tightness Location: substernal Chest Pain Radiation: neck Severity of Pain-Max: mild Severity of Pain-Current: mild Modifying Factors: Improves With: coughing Associated Symptoms: cough, diaphoresis Prior Chest Pain/Cardiac Workup: stress test Nitro Today/Relief: no nitro taken today Aspirin Treatment Today: no aspirin today Allergies/Adverse Reactions: No Known Drug Allergies Allergy (Verified 04/01/22 11:19) Home Medications: Asenapine Maleate [Saphris] 2.5 mg SL HS 04/01/22 [History] Cholecalciferol (Vitamin D3) [Vitamin D] 5,000 unit PO 3XW 04/01/22 [History] Cyanocobalamin (Vitamin B-12) [Vitamin B-12] 500 mcg PO DAILY 04/01/22 [History] Levocetirizine Dihydrochloride [Xyzal] 5 mg PO DAILY 04/01/22 [History] Levothyroxine Sodium 100 mcg PO DAILY 04/01/22 [History] Omeprazole 20 mg PO DAILY 04/01/22 [History] Oxycodone HCl/Acetaminophen [Oxycodone-Acetaminophen 5-325] 1 each PO TID PRN 04/01/22 [History] Rosuvastatin Calcium 10 mg PO HS 04/01/22 [History] Sitagliptin Phosphate [Januvia] 100 mg PO DAILY 04/01/22 [History] Solriamfetol HCl [Sunosi] 1 tab PO DAILY 04/01/22 [History] Testosterone Cypionate 1 ml IM UD 04/01/22 [History] buPROPion HCL [Bupropion Xl] 300 mg PO QAM 04/01/22 [History] Hx Tetanus, Diphtheria Vaccination/Date Given: Yes Hx Influenza Vaccination/Date Given: Yes Hx Pneumococcal Vaccination/Date Given: No Travel Risk - International Travel Have you traveled outside of the country in past 3 weeks: No - Coronavirus Screening Are you exhibiting any of the following symptoms?: No Close contact with a COVID-19 positive Pt in past 14-21 Days: No - Vaccine Status Have you recieved a Covid-19 vaccination: Yes Line [employer]: [employer] - Vaccination Dates Date of 2cond Vaccination (if applicable): 02/06/21 - Review of Systems Constitutional: No Fever, No Chills Eyes: No Symptoms Ears, Nose, & Throat: No Symptoms Respiratory: Cough, No Dyspnea Cardiac: Chest Pain (Tightness), No Edema, No Syncope Abdominal/Gastrointestinal: No Abdominal Pain, No Nausea, No Vomiting, No Diarrhea Genitourinary Symptoms: No Dysuria Musculoskeletal: No Back Pain, No Neck Pain Skin: No Rash Neurological: No Dizziness, No Focal Weakness, No Sensory Changes Psychological: No Symptoms Endocrine: No Symptoms All Other Systems: Reviewed and Negative - Past Medical History Pertinent Past Medical History: Yes Neurological History: No Pertinent History Cardiac History: High Cholesterol Respiratory History: No Pertinent History Endocrine Medical History: No Pertinent History Musculoskeletal History: Degenerative Disk Disease Psycho-Social History: Anxiety, Bipolar, Depression, Other Other Medical History: SCHIZOPHRENIA, ANXIETY/DEPRESSION, GERD. SX HX: RIGHT HAND SURGERY DUE TO TRAUMA. 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 - Past Surgical History Past Surgical History: Yes Other Surgical History: eye surgeryx2 hand surgery - Social History Smoking Status: Never smoker Exposure to second hand smoke: No Drug Use: none Patient Lives Alone: No - Nursing Vital Signs Nursing Vital Signs: Initial Vital Signs Temperature 98.8 F 04/01/22 11:08 Pulse Rate 72 04/01/22 11:08 Respiratory Rate 17 04/01/22 11:08 Blood Pressure 163/87 04/01/22 11:08 O2 Sat by Pulse Oximetry 96 04/01/22 11:08 Pain Scale Pain Intensity 5 - Physical Exam General Appearance: no apparent distress, alert Eye Exam: PERRL/EOMI, eyes nml inspection Ears, Nose, Throat Exam: normal ENT inspection, moist mucous membranes Neck Exam: normal inspection, non-tender, supple, full range of motion Respiratory Exam: normal breath sounds, lungs clear, No respiratory distress Cardiovascular Exam: regular rate/rhythm, normal heart sounds Gastrointestinal/Abdomen Exam: soft, No tenderness, No mass Back Exam: normal inspection, No CVA tenderness, No vertebral tenderness Extremity Exam: normal inspection, normal range of motion Neurologic Exam: alert, oriented x 3, cooperative, normal mood/affect, sensation nml, No motor deficits Skin Exam: normal color, warm, dry SpO2: 95 - Radiology Exams Chest X-ray Interpretation: Negative - CT Exams Chest CT Interpretation: Other (Some pulmonary fibrosis but no other acute changes) Ordered Tests: Active Orders 24 hr Category Date Time Status Double Backer STAT Care 04/01/22 11:19 Active EKG-ER Only STAT Care 04/01/22 11:12 Active IV Insertion STAT Care 04/01/22 11:12 Active CHEST 1 VIEW (PORTABLE) Stat Exams 04/01/22 11:13 Completed CHEST WITHOUT CONTRAST [CT] Stat Exams 04/01/22 12:10 Completed AMYLASE Stat Lab 04/01/22 11:15 Completed CBC W DIFF Stat Lab 04/01/22 11:15 Completed CMP Stat Lab 04/01/22 11:15 Completed D-DIMER QUANTITATIVE Stat Lab 04/01/22 11:15 Completed LIPASE Stat Lab 04/01/22 11:15 Completed Lactic Acid Stat Lab 04/01/22 11:12 Completed MAGNESIUM Stat Lab 04/01/22 11:15 Completed NT PRO BNP Stat Lab 04/01/22 11:15 Completed PROTIME WITH INR Stat Lab 04/01/22 11:15 Completed TROPONIN Q3H Lab 04/01/22 11:15 Completed TROPONIN Q3H Lab 04/01/22 13:20 Received TROPONIN Q3H Lab 04/01/22 17:15 Ordered TROPONIN Q3H Lab 04/01/22 20:15 Ordered TROPONIN Q3H Lab 04/01/22 23:15 Ordered UA W/RFX CULTURE Stat Lab 04/01/22 Ordered Urine Triage Profile Stat Lab 04/01/22 11:13 Ordered Medication Summary Generic Name Dose Route Start Last Admin Trade Name Zunilda PRN Reason Stop Dose Admin Sodium Chloride 1,000 mls @ 50 mls/hr 04/01/22 11:15 04/01/22 11:23 Sodium Chloride 0.9% 1000 Ml IV 05/01/22 11:14 50 mls/hr .Q20H AGUS Administration Discontinued Medications Generic Name Dose Route Start Last Admin Trade Name Zunilda PRN Reason Stop Dose Admin Aspirin 324 mg 04/01/22 11:12 04/01/22 11:22 Aspirin 81 Mg Tab.Chew PO 04/01/22 11:13 324 mg STAT ONE Administration Aspirin Confirm 04/01/22 11:20 Aspirin 81 Mg Tab.Chew Administered 04/01/22 11:21 Dose 324 mg .ROUTE .STK-MED ONE Oxycodone/Acetaminophen 1 tab 04/01/22 11:12 Oxycodone Hcl/Apap 5 Mg/325 Mg Tablet PO 04/01/22 11:13 STAT ONE Lab/Rad Data: Laboratory Result Diagrams 04/01/22 11:15 04/01/22 11:15 Laboratory Results 04/01/22 04/01/22 04/01/22 Range/Units 11:15 11:15 11:15 WBC (4.0-10.5) x10^3/uL RBC (4.1-5.6) x10^6/uL Hgb (12.5-18.0) g/dL Hct (42-50) % MCV (78-100) fL MCH (26-32) pg MCHC (32-36) g/dL RDW (11.5-14.0) % Plt Count (150-450) x10^3/uL MPV (7.5-11.0) fL Gran % (36.0-66.0) % Immature Gran % (Auto) (0.00-0.4) % Nucleat RBC Rel Count (0.00-0.1) % Eos # (Auto) (0-0.5) x10^3/uL Immature Gran # (Auto) (0.00-0.03) x10^3u/L Absolute Lymphs (auto) (1.0-4.6) x10^3/uL Absolute Monos (auto) (0.0-1.3) x10^3/uL Absolute Nucleated RBC (0.00-0.01) x10^3u/L Lymphocytes % (24.0-44.0) % Monocytes % (0.0-12.0) % Eosinophils % (0.00-5.0) % Basophils % (0.0-0.4) % Absolute Granulocytes (1.4-6.9) x10^3/uL Basophils # (0-0.4) x10^3/uL PT 10.3 (9.4-12.5) SECONDS INR 0.97 (0.8-3.0) D-Dimer 0.19 (0.0-0.50) mg/L Sodium 139 (137-145) mmol/L Potassium 3.7 (3.5-5.1) mmol/L Chloride 105 (98-107) mmol/L Carbon Dioxide 24 (22-30) mmol/L Anion Gap 14.4 (5-15) MEQ/L BUN 13 (9-20) mg/dL Creatinine 1.08 (0.66-1.25) mg/dL Estimated GFR > 60.0 ML/MIN Glucose 129 H (74-106) mg/dL Lactic Acid (0.4-2.0) Calcium 9.5 (8.4-10.2) mg/dL Magnesium 2.1 (1.6-2.3) mg/dL Total Bilirubin 1.00 (0.2-1.3) mg/dL AST 31 (17-59) U/L ALT 58 H (0-50) U/L Alkaline Phosphatase 59 (38-126) U/L Troponin I < 0.012 (0.000-0.034) ng/mL NT-Pro-B Natriuret Pep 39.6 (0-900) pg/mL Serum Total Protein 7.4 (6.3-8.2) g/dL Albumin 4.5 (3.5-5.0) g/dL Amylase 60 (30-110) U/L Lipase 56 (23-300) U/L 04/01/22 04/01/22 Range/Units 11:15 11:12 WBC 11.0 H (4.0-10.5) x10^3/uL RBC 5.02 (4.1-5.6) x10^6/uL Hgb 15.9 (12.5-18.0) g/dL Hct 47.7 (42-50) % MCV 95.0 (78-100) fL MCH 31.7 (26-32) pg MCHC 33.3 (32-36) g/dL RDW 14.8 H (11.5-14.0) % Plt Count 306 (150-450) x10^3/uL MPV 9.7 (7.5-11.0) fL Gran % 65.7 (36.0-66.0) % Immature Gran % (Auto) 0.4 (0.00-0.4) % Nucleat RBC Rel Count 0.0 (0.00-0.1) % Eos # (Auto) 0.11 (0-0.5) x10^3/uL Immature Gran # (Auto) 0.04 H (0.00-0.03) x10^3u/L Absolute Lymphs (auto) 2.73 (1.0-4.6) x10^3/uL Absolute Monos (auto) 0.82 (0.0-1.3) x10^3/uL Absolute Nucleated RBC 0.00 (0.00-0.01) x10^3u/L Lymphocytes % 24.9 (24.0-44.0) % Monocytes % 7.5 (0.0-12.0) % Eosinophils % 1.0 (0.00-5.0) % Basophils % 0.5 (0.0-0.4) % Absolute Granulocytes 7.22 H (1.4-6.9) x10^3/uL Basophils # 0.05 (0-0.4) x10^3/uL PT (9.4-12.5) SECONDS INR (0.8-3.0) D-Dimer (0.0-0.50) mg/L Sodium (137-145) mmol/L Potassium (3.5-5.1) mmol/L Chloride (98-107) mmol/L Carbon Dioxide (22-30) mmol/L Anion Gap (5-15) MEQ/L BUN (9-20) mg/dL Creatinine (0.66-1.25) mg/dL Estimated GFR ML/MIN Glucose (74-106) mg/dL Lactic Acid 1.1 (0.4-2.0) Calcium (8.4-10.2) mg/dL Magnesium (1.6-2.3) mg/dL Total Bilirubin (0.2-1.3) mg/dL AST (17-59) U/L ALT (0-50) U/L Alkaline Phosphatase (38-126) U/L Troponin I (0.000-0.034) ng/mL NT-Pro-B Natriuret Pep (0-900) pg/mL Serum Total Protein (6.3-8.2) g/dL Albumin (3.5-5.0) g/dL Amylase (30-110) U/L Lipase (23-300) U/L - Progress Progress: improved Air Movement: good Blood Culture(s) Obtained: No Antibiotics given: No - Departure Departure Disposition: Home Clinical Impression: Bronchitis Condition: Stable Critical Care Time: No Referrals: JAVI BEJARANO [Primary Care Provider] - Follow up/PCP as directed Instructions: Chest Pain (DC) Prescriptions: Cephalexin Mh 500 mg [Keflex 500 mg] 500 mg PO QID #40 cap
[2022-04-01 14:02] VITALS: BP 138/75; O2SAT 96
== END 2022-04-01 14:07 | disposition home or self-care (01) ==
LOC: ED 11:06
DX: R07.9 Chest pain, unspecified (principal); J40 Bronchitis, not specified as acute or chronic; R05.3 Chronic cough; R06.02 Shortness of breath; R11.0 Nausea; E78.5 Hyperlipidemia, unspecified; Z79.891 Long term (current) use of opiate analgesic; Z79.84 Long term (current) use of oral hypoglycemic drugs; Z79.899 Other long term (current) drug therapy
CPT/HCPCS: 36000; 36415; 71045; 71250; 80053; 82150; 83605; 83690; 83735; 83880; 84484; 85025; 85379; 85610; 93005; 93041; 99284; A9270-GY

== ENCOUNTER 2022-04-26 21:15 | Emergency (ER) | payer MEDICARE ==
[2022-04-26] MEDS ORDERED: DUONEB 0.5-3 MG/3 ml Neb IH ONE ×2 (21:57→22:02)
--- NOTE | 2022-04-26 22:08 | ERPHSYRPT ---
- History of Present Illness Time Seen by Provider: 04/26/22 21:31 Source: patient Exam Limitations: no limitations Patient Subjective Stated Complaint: pt states "I have been having this cough for about 5 months now. I have seen my family doctor and she said it is just al lergies. They changed my allergic medication and it helped some. I have been on lots of different antibiotics and they help for a little and then it comes back again." Triage Nursing Assessment: Pt ambulatory to bed by self, pt alert and oriented x3, pt c/o nonproductive cough x5 months, pt has seen family doctor and was told it was just allergies and have changed to different allergy medicine that hasn't helped, no one else in the house is sick, pt has been afebrile at home and is currently afebrile here Physician History: 56 years old male presented to the ER with chief complaint of cough for almost 5 months off and on, have been evaluated by primary care, pulmonology with no significant relief. Patient was seen in the ER few weeks ago with negative work-up. [facility] changed allergy medication which did help for a few weeks but again having dry cough without difficulty breathing. He has a constant desire to clear his throat. No fever chills or chest pain reported. Patient reports he is here to have TB test done. Timing/Duration: week(s), intermittent, worse Cough Quality/Degree: mild, moderate, dry cough Possible Cause: frequent episodes Modifying Factors: Improves With: nothing Associated Symptoms: cough, No fever, No chills, No chest pain/soreness, No dizziness, No headache, No lightheadedness, No muscle aches, No nasal congestion, No nasal drainage, No shortness of breath, No sinus infection, No sore throat, No wheezing Allergies/Adverse Reactions: No Known Drug Allergies Allergy (Verified 04/26/22 21:28) Home Medications: Asenapine Maleate [Saphris] 2.5 mg SL HS 04/01/22 [History] Cholecalciferol (Vitamin D3) [Vitamin D] 5,000 unit PO 3XW 04/01/22 [History] Cyanocobalamin (Vitamin B-12) [Vitamin B-12] 500 mcg PO DAILY 04/01/22 [History] Levocetirizine Dihydrochloride [Xyzal] 5 mg PO DAILY 04/01/22 [History] Levothyroxine Sodium 100 mcg PO DAILY 04/01/22 [History] Omeprazole 20 mg PO DAILY 04/01/22 [History] Oxycodone HCl/Acetaminophen [Oxycodone-Acetaminophen 5-325] 1 each PO TID PRN 04/01/22 [History] Rosuvastatin Calcium 10 mg PO HS 04/01/22 [History] Sitagliptin Phosphate [Januvia] 100 mg PO DAILY 04/01/22 [History] Solriamfetol HCl [Sunosi] 1 tab PO DAILY 04/01/22 [History] Testosterone Cypionate 1 ml IM UD 04/01/22 [History] buPROPion HCL [Bupropion Xl] 300 mg PO QAM 04/01/22 [History] Ziprasidone 20 mg [Geodon 20 MG Capsule] 20 mg PO BID 04/26/22 [History] Hx Tetanus, Diphtheria Vaccination/Date Given: Yes Hx Influenza Vaccination/Date Given: No Hx Pneumococcal Vaccination/Date Given: No Immunizations Up to Date: Yes Travel Risk - International Travel Have you traveled outside of the country in past 3 weeks: No - Coronavirus Screening Are you exhibiting any of the following symptoms?: No Close contact with a COVID-19 positive Pt in past 14-21 Days: No - Vaccine Status Have you recieved a Covid-19 vaccination: Yes [employer]: [employer] - Vaccination Dates Date of 2cond Vaccination (if applicable): 2020 - Review of Systems Constitutional: No Symptoms Eyes: No Symptoms Ears, Nose, & Throat: No Symptoms Respiratory: Cough Cardiac: No Symptoms Abdominal/Gastrointestinal: No Symptoms Genitourinary Symptoms: No Symptoms Musculoskeletal: No Symptoms Skin: No Symptoms Neurological: No Symptoms Psychological: No Symptoms Hematologic/Lymphatic: No Symptoms Immunological/Allergic: No Symptoms - Past Medical History Pertinent Past Medical History: Yes Neurological History: No Pertinent History ENT History: No Pertinent History Cardiac History: High Cholesterol Respiratory History: No Pertinent History Endocrine Medical History: No Pertinent History Musculoskeletal History: Degenerative Disk Disease Psycho-Social History: Anxiety, Bipolar, Depression, Other Other Medical History: SCHIZOPHRENIA, ANXIETY/DEPRESSION, GERD. SX HX: RIGHT HAND SURGERY DUE TO TRAUMA. 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 - Past Surgical History Past Surgical History: Yes Other Surgical History: eye surgeryx2 hand surgery - Social History Smoking Status: Never smoker Exposure to second hand smoke: No Drug Use: none Patient Lives Alone: No - Nursing Vital Signs Nursing Vital Signs: Initial Vital Signs Temperature 98.6 F 04/26/22 21:30 Pulse Rate 58 L 04/26/22 21:30 Respiratory Rate 18 04/26/22 21:30 Blood Pressure 137/61 04/26/22 21:30 O2 Sat by Pulse Oximetry 95 04/26/22 21:30 Pain Scale Pain Intensity 5 - Physical Exam General Appearance: no apparent distress, alert Eye Exam: PERRL/EOMI Ears, Nose, Throat Exam: normal ENT inspection, TMs normal, pharynx normal Neck Exam: normal inspection, non-tender, supple, full range of motion Respiratory Exam: normal breath sounds, lungs clear Cardiovascular Exam: regular rate/rhythm, normal heart sounds Back Exam: normal inspection, normal range of motion Extremity Exam: normal inspection, normal range of motion Neurologic Exam: alert, oriented x 3, cooperative Skin Exam: normal color SpO2 Interpretation: normal SpO2: 93 O2 Delivery: Room Air Ordered Tests: Medication Summary Discontinued Medications Generic Name Dose Route Start Last Admin Trade Name Freq PRN Reason Stop Dose Admin Albuterol/Ipratropium 3 ml 04/26/22 21:57 Ipratropium/Albuterol Sulfate 3 Ml Ampul.Neb IH 04/26/22 21:58 STAT ONE - Progress Progress: re-examined Air Movement: good Progress Note: 04/26/22 22:10 I have offered him imaging and work-up which patient refused and he was interested in doing TB testing which is unfortunately not done at the ER. He is given breathing treatment and we will give him inhaler to use as needed and outpatient follow-up with primary care and pulmonology. Blood Culture(s) Obtained: No Antibiotics given: No Counseled pt/family regarding: diagnosis, need for follow-up - Departure Departure Disposition: Home Clinical Impression: Chronic cough Condition: Stable Critical Care Time: No Referrals: JAVI BEJARANO [Primary Care Provider] - Follow Up with PCP/3 days Instructions: Cough, Adult (DC) Additional Instructions: Follow-up with primary care and pulmonology for reevaluation. Return to ER for worsening cough, difficulty breathing, fever chills etc. Prescriptions: Albuterol Sulfate [Albuterol Sulfate Hfa] 8.5 gm IH Q6H PRN 7 Days #1 inh PRN Reason: Cough
[2022-04-26 22:20] VITALS: BP 118/56; PULSE 58; O2SAT 94
== END 2022-04-26 22:24 | disposition home or self-care (01) ==
LOC: ED 21:15
DX: R05.3 Chronic cough (principal); E78.5 Hyperlipidemia, unspecified; Z79.899 Other long term (current) drug therapy
CPT/HCPCS: 94640; 99281; A9270-GY

== ENCOUNTER 2022-06-29 16:44 | Emergency (ER) | payer MEDICARE ==
--- NOTE | 2022-06-29 17:10 | ERPHSYRPT ---
- History of Present Illness Time Seen by Provider: 06/29/22 17:00 Source: patient Exam Limitations: no limitations Patient Subjective Stated Complaint: PT states "I am having allot of stress at home. They are threatening to throw me out of my house and I do not know anyone and have no relatives and I am stressed. I am not suicidal, I am not homicidal I am just stressed" Triage Nursing Assessment: PT presented alert and oriented X 3, skin pwd. Pt anxious, able to speak in clear full sentences. Pt in no apparent respiratory distress. Pt able to sit calmly on the bed. Physician History: This is a 56-year-old obese white male patient of [facility] who presents with complaint of his mind racing, extremely stressed and over the top anxiety. Patient was placed on an anxiety medicine approximately a few weeks ago and then stopped it a week and a half ago. He looked up the side effects and the pharmacology of that medication and decided on his own to stop it. Patient states that he is not suicidal he is not homicidal. He is being threatened to be kicked out of his home and does not know any individuals. He was not sure what to do. Patient has a history of hypothyroidism, hyperl ipidemia, gastroesophageal reflux disease anxiety issues and schizophrenia. Patient states that he was dropped off here at the hospital emergency department but they are planning on picking him up at the time of the discharge from the emergency department. Patient does not have chest pain. He has no shortness of breath. He has no abdominal pain. He has no nausea vomiting or diarrhea. Timing/Duration: today Severity: moderate Associated Symptoms: denies symptoms Allergies/Adverse Reactions: No Known Drug Allergies Allergy (Verified 04/26/22 21:28) Home Medications: Levothyroxine Sodium 100 mcg PO DAILY 04/01/22 [History] Omeprazole 20 mg PO DAILY 04/01/22 [History] Oxycodone HCl/Acetaminophen [Oxycodone-Acetaminophen 5-325] 1 each PO TID PRN 04/01/22 [History] Rosuvastatin Calcium 10 mg PO HS 04/01/22 [History] Testosterone Cypionate 1 ml IM UD 04/01/22 [History] Ziprasidone 20 mg [Geodon 20 MG Capsule] 40 mg PO BID 04/26/22 [History] Levocetirizine Dihydrochloride [Xyzal] 5 mg PO DAILY 06/29/22 [History] Magnesium Oxide [Magnesium] 250 mg PO DAILY 06/29/22 [History] Sitagliptin Phosphate [Januvia] 100 mg PO DAILY 06/29/22 [History] Hx Tetanus, Diphtheria Vaccination/Date Given: Yes Hx Influenza Vaccination/Date Given: No Hx Pneumococcal Vaccination/Date Given: No Immunizations Up to Date: Yes Travel Risk - International Travel Have you traveled outside of the country in past 3 weeks: No - Coronavirus Screening Are you exhibiting any of the following symptoms?: No Close contact with a COVID-19 positive Pt in past 14-21 Days: No - Vaccine Status Have you recieved a Covid-19 vaccination: Yes 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 - Vaccination Dates Date of 2cond Vaccination (if applicable): 2020 - Review of Systems Constitutional: Other (Very anxious) Eyes: No Symptoms Ears, Nose, & Throat: No Symptoms Respiratory: No Symptoms Cardiac: No Symptoms Abdominal/Gastrointestinal: No Symptoms Genitourinary Symptoms: No Symptoms Musculoskeletal: No Symptoms Skin: No Symptoms Neurological: No Symptoms Psychological: Anxiety Endocrine: No Symptoms Hematologic/Lymphatic: No Symptoms Immunological/Allergic: No Symptoms All Other Systems: Reviewed and Negative - Past Medical History Pertinent Past Medical History: Yes Neurological History: No Pertinent History ENT History: No Pertinent History Cardiac History: High Cholesterol Respiratory History: No Pertinent History Endocrine Medical History: No Pertinent History Musculoskeletal History: Degenerative Disk Disease Psycho-Social History: Anxiety, Bipolar, Depression, Other Other Medical History: SCHIZOPHRENIA, ANXIETY/DEPRESSION, GERD. SX HX: RIGHT HAND SURGERY DUE TO TRAUMA. 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 - Past Surgical History Past Surgical History: Yes Other Surgical History: eye surgeryx2 hand surgery - Social History Smoking Status: Never smoker Exposure to second hand smoke: No Drug Use: none Patient Lives Alone: No - Nursing Vital Signs Nursing Vital Signs: Initial Vital Signs Temperature 98.1 F 06/29/22 16:50 Pulse Rate 64 06/29/22 16:50 Respiratory Rate 20 06/29/22 16:50 Blood Pressure 187/98 06/29/22 16:50 O2 Sat by Pulse Oximetry 98 06/29/22 16:50 Pain Scale Pain Intensity 0 - Physical Exam General Appearance: no apparent distress, alert, anxiety, obese Eye Exam: PERRL/EOMI, eyes nml inspection Ears, Nose, Throat Exam: normal ENT inspection, moist mucous membranes Neck Exam: normal inspection, non-tender, supple, full range of motion Respiratory Exam: normal breath sounds, lungs clear, airway intact, No chest tenderness, No respiratory distress Cardiovascular Exam: regular rate/rhythm, normal heart sounds, normal peripheral pulses Gastrointestinal/Abdomen Exam: soft, normal bowel sounds, No tenderness Back Exam: normal inspection, normal range of motion, No CVA tenderness, No vertebral tenderness Extremity Exam: normal inspection, normal range of motion, pelvis stable Neurologic Exam: alert, oriented x 3, cooperative, assembling fabricator II-XII nml as tested, no rmal mood/affect, nml cerebellar function, nml station & gait, sensation nml Skin Exam: normal color, warm, diaphoresis Lymphatic Exam: No adenopathy SpO2 Interpretation: normal SpO2: 98 O2 Delivery: Room Air - Course Nursing assessment & vital signs reviewed: Yes Ordered Tests: Active Orders 24 hr Category Date Time Status EKG-ER Only STAT Care 06/29/22 17:46 Active Pulse Oximetry (ED) STAT Care 06/29/22 17:46 Active ACETAMINOPHEN Stat Lab 06/29/22 18:10 Completed CBC W DIFF Stat Lab 06/29/22 18:10 Completed CMP Stat Lab 06/29/22 18:10 Completed ETHYL ALCOHOL Stat Lab 06/29/22 18:10 Completed Lactic Acid Stat Lab 06/29/22 18:04 Completed MAGNESIUM Stat Lab 06/29/22 18:10 Completed [place] Screen Stat Lab 06/29/22 18:10 Completed SALICYLATE Stat Lab 06/29/22 18:10 Completed T4 (Thyroxine) Stat Lab 06/29/22 18:10 Completed TROPONIN Q4H Lab 06/29/22 18:10 Completed TROPONIN Q4H Lab 06/29/22 22:00 Ordered TROPONIN Q4H Lab 06/30/22 02:00 Ordered TSH, 3RD Generation Stat Lab 06/29/22 18:10 Completed UA W/RFX CULTURE Stat Lab 06/29/22 Ordered Urine Triage Profile Stat Lab 06/29/22 19:41 Ordered Medication Summary Discontinued Medications Generic Name Dose Route Start Last Admin Trade Name Freq PRN Reason Stop Dose Admin Lorazepam 1 mg 06/29/22 17:46 06/29/22 17:52 Lorazepam 2 Mg/1 Ml 2 Mg Vial IM 06/29/22 17:47 1 mg STAT ONE Administration Lorazepam Confirm 06/29/22 17:52 Lorazepam 2 Mg/1 Ml 2 Mg Vial Administered 06/29/22 17:53 Dose 2 mg .ROUTE .STK-MED ONE Lab/Rad Data: Laboratory Result Diagrams 06/29/22 18:10 06/29/22 18:10 Laboratory Results 06/29/22 06/29/22 06/29/22 Range/Units 18:10 18:10 18:10 WBC (4.0-10.5) x10^3/uL RBC (4.1-5.6) x10^6/uL Hgb (12.5-18.0) g/dL Hct (42-50) % MCV (78-100) fL MCH (26-32) pg MCHC (32-36) g/dL RDW (11.5-14.0) % Plt Count (150-450) x10^3/uL MPV (7.5-11.0) fL Gran % (36.0-66.0) % Immature Gran % (Auto) (0.00-0.4) % Nucleat RBC Rel Count (0.00-0.1) % Eos # (Auto) (0-0.5) x10^3/uL Immature Gran # (Auto) (0.00-0.03) x10^3u/L Absolute Lymphs (auto) (1.0-4.6) x10^3/uL Absolute Monos (auto) (0.0-1.3) x10^3/uL Absolute Nucleated RBC (0.00-0.01) x10^3u/L Lymphocytes % (24.0-44.0) % Monocytes % (0.0-12.0) % Eosinophils % (0.00-5.0) % Basophils % (0.0-0.4) % Absolute Granulocytes (1.4-6.9) x10^3/uL Basophils # (0-0.4) x10^3/uL Sodium (137-145) mmol/L Potassium (3.5-5.1) mmol/L Chloride (98-107) mmol/L Carbon Dioxide (22-30) mmol/L Anion Gap (5-15) MEQ/L BUN (9-20) mg/dL Creatinine (0.66-1.25) mg/dL Estimated GFR ML/MIN Glucose (74-106) mg/dL Lactic Acid (0.4-2.0) Calcium (8.4-10.2) mg/dL Magnesium (1.6-2.3) mg/dL Total Bilirubin (0.2-1.3) mg/dL AST (17-59) U/L ALT (0-50) U/L Alkaline Phosphatase (38-126) U/L Troponin I < 0.012 (0.000-0.034) ng/mL Serum Total Protein (6.3-8.2) g/dL Albumin (3.5-5.0) g/dL Thyroxine (T4) (5.53-10.96) ug/dL TSH 3rd Generation (0.47-4.68) mIU/L Salicylates (2-20) mg/dL Acetaminophen (10-30) ug/ml Ethyl Alcohol (0-10) mg/dL Monoscreen WEAKLY POSITIVE (Negative) Influenza Type A Ag NEGATIVE (NEGATIVE) Influenza Type B Ag NEGATIVE (NEGATIVE) RSV (PCR) NEGATIVE (Negative) SARS-CoV-2 (PCR) NEGATIVE (NEGATIVE) 06/29/22 06/29/22 06/29/22 Range/Units 18:10 18:10 18:04 WBC 9.1 (4.0-10.5) x10^3/uL RBC 5.27 (4.1-5.6) x10^6/uL Hgb 16.5 (12.5-18.0) g/dL Hct 50.7 H (42-50) % MCV 96.2 (78-100) fL MCH 31.3 (26-32) pg MCHC 32.5 (32-36) g/dL RDW 13.0 (11.5-14.0) % Plt Count 308 (150-450) x10^3/uL MPV 10.0 (7.5-11.0) fL Gran % 70.2 H (36.0-66.0) % Immature Gran % (Auto) 0.3 (0.00-0.4) % Nucleat RBC Rel Count 0.0 (0.00-0.1) % Eos # (Auto) 0.05 (0-0.5) x10^3/uL Immature Gran # (Auto) 0.03 (0.00-0.03) x10^3u/L Absolute Lymphs (auto) 1.98 (1.0-4.6) x10^3/uL Absolute Monos (auto) 0.63 (0.0-1.3) x10^3/uL Absolute Nucleated RBC 0.00 (0.00-0.01) x10^3u/L Lymphocytes % 21.7 L (24.0-44.0) % Monocytes % 6.9 (0.0-12.0) % Eosinophils % 0.5 (0.00-5.0) % Basophils % 0.4 (0.0-0.4) % Absolute Granulocytes 6.40 (1.4-6.9) x10^3/uL Basophils # 0.04 (0-0.4) x10^3/uL Sodium 137 (137-145) mmol/L Potassium 3.9 (3.5-5.1) mmol/L Chloride 105 (98-107) mmol/L Carbon Dioxide 22 (22-30) mmol/L Anion Gap 14.3 (5-15) MEQ/L BUN 18 (9-20) mg/dL Creatinine 1.02 (0.66-1.25) mg/dL Estimated GFR > 60.0 ML/MIN Glucose 110 H (74-106) mg/dL Lactic Acid 1.4 (0.4-2.0) Calcium 9.2 (8.4-10.2) mg/dL Magnesium 2.2 (1.6-2.3) mg/dL Total Bilirubin 1.30 (0.2-1.3) mg/dL AST 26 (17-59) U/L ALT 59 H (0-50) U/L Alkaline Phosphatase 84 (38-126) U/L Troponin I (0.000-0.034) ng/mL Serum Total Protein 7.5 (6.3-8.2) g/dL Albumin 4.6 (3.5-5.0) g/dL Thyroxine (T4) 8.40 (5.53-10.96) ug/dL TSH 3rd Generation 0.994 (0.47-4.68) mIU/L Salicylates < 1.0 L (2-20) mg/dL Acetaminophen < 10 L (10-30) ug/ml Ethyl Alcohol < 10 (0-10) mg/dL Monoscreen (Negative) Influenza Type A Ag (NEGATIVE) Influenza Type B Ag (NEGATIVE) RSV (PCR) (Negative) SARS-CoV-2 (PCR) (NEGATIVE) - Departure Departure Disposition: Home Clinical Impression: Mononucleosis, Anxiety Condition: Stable Critical Care Time: No Referrals: JAVI BEJARANO [Primary Care Provider] - Follow up/PCP as directed Additional Instructions: Take your medications as prescribed. Follow-up with your mental health provider tomorrow morning by phone to make arrangements for follow-up evaluation and management of your anxiety issues. Prescriptions: Lorazepam 0.5 mg [Ativan 0.5 MG] 0.5 mg PO Q8H PRN #6 tablet MDD 3 PRN Reason: Anxiety
[2022-06-29] MEDS ORDERED: Ativan 2 MG/1 ML VIAL IM ONE (17:46)
[2022-06-29] MEDS ORDERED: Ativan 2 MG/1 ML VIAL ONE (17:52)
[2022-06-29 18:12] LABS: Basophil (Absolute #) 0.04 x10^3/uL (0-0.4); Eosinophil % 0.5 % (0.00-5.0); Eosinophil (Absolute #) 0.05 x10^3/uL (0-0.5); Hematocrit 50.7 % (42-50); Hemoglobin 16.5 g/dL (12.5-18.0); Lymphocyte (Absolute #) 1.98 x10^3/uL (1.0-4.6); Lymphocytes % 21.7 % (24.0-44.0); Mean Cell Volume 96.2 fL (78-100); Mean Corpuscular Hemoglobin 31.3 pg (26-32); Mean Corpuscular Hgb Concent. 32.5 g/dL (32-36); Monocyte (Absolute #) 0.63 x10^3/uL (0.0-1.3); Monocytes % 6.9 % (0.0-12.0); Neutrophil % 70.2 % (36.0-66.0); Platelet Count 308 x10^3/uL (150-450); Red Blood Count 5.27 x10^6/uL (4.1-5.6); White Blood Count 9.1 x10^3/uL (4.0-10.5)
[2022-06-29 18:49] LABS: INFLUENZA A NEGATIVE (NEGATIVE); INFLUENZA B NEGATIVE (NEGATIVE); RESPIRATORY SYNCTIAL VIRUS NEGATIVE (Negative); SARS-CoV-2 Xpert Express NEGATIVE (NEGATIVE)
[2022-06-29 19:09] LABS: ACETAMINOPHEN < 10 ug/ml (10-30); ALBUMIN 4.6 g/dL (3.5-5.0); ALKALINE PHOSPHATASE 84 U/L (38-126); ANION GAP 14.3 MEQ/L (5-15); BLOOD UREA NITROGEN 18 mg/dL (9-20); CHLORIDE 105 mmol/L (98-107); Calcium 9.2 mg/dL (8.4-10.2); Carbon Dioxide 22 mmol/L (22-30); Creatinine 1 1.02 mg/dL (0.66-1.25); EST GLOMERULAR FILTRATION RATE > 60.0 ML/MIN; ETHYL ALCOHOL < 10 mg/dL (0-10); Glucose 110 mg/dL (74-106); MAGNESIUM 2.2 mg/dL (1.6-2.3); Potassium 3.9 mmol/L (3.5-5.1); SALICYLATE < 1.0 mg/dL (2-20); SGOT/AST 26 U/L (17-59); SGPT/ALT 59 U/L (0-50); SODIUM 137 mmol/L (137-145); TSH, 3RD Generation 0.994 mIU/L (0.47-4.68); Total Protein 7.5 g/dL (6.3-8.2)
[2022-06-29 20:23] LABS: Appearance CLEAR (CLEAR); Bilirubin NEGATIVE (NEGATIVE); Dipstick done @ ? MAIN LAB; Glucose NEGATIVE (NEGATIVE); Ketones SMALL-15 (NEGATIVE); Nitrite NEGATIVE (NEGATIVE); Protein,Urine Dip 30 (Negative); RBC NEGATIVE Ery/ul (0-5); Specific Gravity >=1.030 (1.005-1.025); Urobilinogen 0.2 mg/dL (0-1)
[2022-06-29 20:26] LABS: Bacteria RARE /HPF (NEGATIVE); Mucus SLIGHT /HPF (NEGATIVE); RBC 0-2 /HPF (0-2); WBC 0-2 /HPF (0-5)
[2022-06-29 20:27] LABS: Urine Cultured Indicated? NO
[2022-06-29 20:39] LABS: Amphetamine,Urine NEGATIVE (NEGATIVE); Barbiturate,Urine NEGATIVE (NEGATIVE); Benzodiazepine,Urine NEGATIVE (NEGATIVE); Cocaine,Urine NEGATIVE (NEGATIVE); Opiate,Urine NEGATIVE (NEGATIVE); PCP,Urine NEGATIVE (NEGATIVE); THC,Urine NEGATIVE (NEGATIVE)
[2022-06-29 20:40] VITALS: BP 131/79; PULSE 88; O2SAT 97
[2022-06-29 20:43] LABS: Methadone,Urine NEGATIVE (NEGATIVE)
== END 2022-06-29 20:41 | disposition home or self-care (01) ==
LOC: ED 16:44
DX: B27.90 Infectious mononucleosis, unspecified without complication (principal); F41.9 Anxiety disorder, unspecified; Z59.89 Other problems related to housing and economic circumstances; E78.5 Hyperlipidemia, unspecified; Z79.891 Long term (current) use of opiate analgesic; Z79.84 Long term (current) use of oral hypoglycemic drugs; Z79.899 Other long term (current) drug therapy; Z20.828 Contact with and (suspected) exposure to other viral communicable diseases
CPT/HCPCS: 0241U; 36415; 80053; 80307; 81015; 83605; 83735; 84436; 84443; 84484; 85025; 86308; 93005; 94760; 96372; 99284; G0480; J2060

== ENCOUNTER 2022-10-28 14:40 | Day surgery (SDC) | payer MEDICARE ==
[2022-10-28] MEDS ORDERED: Depo-Medrol 40 MG/ML IM ONE (14:41)
[2022-10-28] MEDS ORDERED: LIDOCAINE HCL 1% 50 MG/5 ML VL PF IJ ONE (14:41)
[2022-10-28] MEDS ORDERED: BUPIVACAINE 0.5% VIAL IJ ONE (14:41)
[2022-10-28 14:58] LABS: POCT GLUCOSE 114 mg/dL (74 to 106)
--- NOTE | 2022-10-28 21:30 | XRAY ---
Indication: Left SI joint injection. Intraoperative fluoroscopy provided for 12 seconds. 2 digital spot image submitted for interpretation demonstrates posterior needle tip projecting over the left SI joint. Correlate with intraoperative findings/report.
--- NOTE | 2022-10-29 09:19 | XRAY ---
12 seconds of fluoroscopy was used in surgery for a left sacroiliac joint injection.
== END 2022-10-28 17:20 | disposition home or self-care (01) ==
LOC: SDC-PAIN 14:40
PROVIDERS: ATTEND Psychiatry & Neurology Pain Medicine
DX: M46.1 Sacroiliitis, not elsewhere classified (principal); Z79.899 Other long term (current) drug therapy
CPT/HCPCS: 27096; 72170; 77002; 82947; J1030; J2001; G0260

== ENCOUNTER 2022-12-13 22:32 | Emergency (ER) | payer MEDICARE ==
[2022-12-13] MEDS ORDERED: Sodium Chloride 0.9% 1000 ML 1,000 ML IV STA (23:39)
[2022-12-13] MEDS ORDERED: Zofran 4 MG/2 ML VIAL IV ONE (23:39)
[2022-12-13] MEDS ORDERED: Hydromorphone 1 mg/ml Injection IV ONE (23:39)
[2022-12-13] MEDS ORDERED: Pepcid 20 MG VIAL IV ONE ×2 (23:39→23:47)
--- NOTE | 2022-12-13 23:39 | ERPHSYRPT ---
- History of Present Illness Time Seen by Provider: 12/13/22 23:36 Historian: patient Exam Limitations: no limitations Patient Subjective Stated Complaint: pt states he woke up with pain in his lower abd. states worse in lt lower. has had diarrhea sinnce this morning Triage Nursing Assessment: pt alert and oriented, answers questions approp. pt a mbulates into room with steady gait noted. respirations nonlabored. skin warm and dry. abd soft and nontender with light palpation. bowel sounds hypo. Physician History: pt developed lower abd pain from left to right this am and has never had any like this - there is also diarrhea. No vomiting. tender lower abd greater on right. is being treated for diabetes also. no fever but has chills. Timing/Duration: today Activities at Onset: none Quality: sharpness Abdominal Pain Onset Location: LLQ Pain Radiation: RLQ Severity of Pain-Max: moderate Severity of Pain-Current: moderate Modifying Factors: Improves With: nothing Associated Symptoms: diarrhea, fever/chills Previous symptoms: no prior history Allergies/Adverse Reactions: No Known Drug Allergies Allergy (Verified 12/13/22 22:55) Home Medications: Levothyroxine Sodium 100 mcg PO DAILY 04/01/22 [History] Omeprazole 20 mg PO DAILY 04/01/22 [History] Oxycodone HCl/Acetaminophen [Oxycodone-Acetaminophen 5-325] 1 each PO TID PRN PRN 04/01/22 [History] Rosuvastatin Calcium 10 mg PO HS 04/01/22 [History] Testosterone Cypionate 1 ml IM UD 04/01/22 [History] Ziprasidone 20 mg [Geodon 20 MG Capsule] 60 mg PO BID 04/26/22 [History] Levocetirizine Dihydrochloride [Xyzal] 5 mg PO DAILY 06/29/22 [History] Magnesium Oxide [Magnesium] 250 mg PO DAILY 06/29/22 [History] Sitagliptin Phosphate [Januvia] 100 mg PO DAILY 06/29/22 [History] Cyanocobalamin 500 Mcg [Vitamin B-12 500 MCG] 500 mcg PO DAILY 12/14/22 [History] Pyridoxine HCl 100 mg [Vitamin B-6 (Pyridoxine) 100 MG] 100 mg PO DAILY 12/14/22 [History] hydrOXYzine HCL [Hydroxyzine HCl] 50 mg PO TID PRN 12/14/22 [History] Hx Tetanus, Diphtheria Vaccination/Date Given: Yes Hx Influenza Vaccination/Date Given: Yes Hx Pneumococcal Vaccination/Date Given: Yes Immunizations Up to Date: Yes Travel Risk - International Travel Have you traveled outside of the country in past 3 weeks: No - Coronavirus Screening Are you exhibiting any of the following symptoms?: No Close contact with a COVID-19 positive Pt in past 14-21 Days: No - Vaccine Status Have you recieved a Covid-19 vaccination: Yes Bobbin [employer]inder: Moderna - Vaccination Dates Date of 2cond Vaccination (if applicable): 2020 - Review of Systems Constitutional: Chills, No Fever Eyes: No Symptoms Ears, Nose, & Throat: No Symptoms Respiratory: No Cough, No Dyspnea Cardiac: No Chest Pain, No Edema, No Syncope Abdominal/Gastrointestinal: Abdominal Pain, Diarrhea, No Nausea, No Vomiting Genitourinary Symptoms: No Dysuria Musculoskeletal: No Back Pain, No Neck Pain Skin: No Rash Neurological: No Dizziness, No Focal Weakness, No Sensory Changes Psychological: No Symptoms Endocrine: No Symptoms Hematologic/Lymphatic: No Symptoms Immunological/Allergic: No Symptoms All Other Systems: Reviewed and Negative - Past Medical History Pertinent Past Medical History: Yes Neurological History: No Pertinent History ENT History: No Pertinent History Cardiac History: High Cholesterol Respiratory History: No Pertinent History Endocrine Medical History: No Pertinent History Musculoskeletal History: Degenerative Disk Disease GI Medical History: GERD Psycho-Social History: Anxiety, Bipolar, Depression, Other Other Medical History: SCHIZOPHRENIA, ANXIETY/DEPRESSION, GERD. SX HX: RIGHT HAND SURGERY DUE TO TRAUMA. 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 - Past Surgical History Past Surgical History: Yes Other Surgical History: eye surgeryx2 hand surgery - Social History Smoking Status: Never smoker Exposure to second hand smoke: No Drug Use: none Patient Lives Alone: No - Nursing Vital Signs Nursing Vital Signs: Initial Vital Signs Temperature 97.1 F 12/13/22 22:38 Pulse Rate 59 L 12/13/22 22:38 Respiratory Rate 16 12/13/22 22:38 Blood Pressure 144/71 12/13/22 22:38 O2 Sat by Pulse Oximetry 100 12/13/22 22:38 Pain Scale Pain Intensity 3 - Physical Exam General Appearance: no apparent distress, alert Eye Exam: PERRL/EOMI, eyes nml inspection Ears, Nose, Throat Exam: normal ENT inspection, pharynx normal, moist mucous membranes Neck Exam: normal inspection, non-tender, supple, full range of motion Respiratory Exam: normal breath sounds, lungs clear, No respiratory distress Cardiovascular Exam: regular rate/rhythm, normal heart sounds Gastrointestinal/Abdomen Exam: soft, tenderness, guarding, No mass Back Exam: normal inspection, normal range of motion, No CVA tenderness, No vertebral tenderness Extremity Exam: normal inspection, normal range of motion, pelvis stable Neurologic Exam: alert, oriented x 3, cooperative, normal mood/affect, nml cerebellar function, sensation nml, No motor deficits Skin Exam: normal color, warm, dry SpO2 Interpretation: normal SpO2: 100 O2 Delivery: Room Air - Course Nursing assessment & vital signs reviewed: Yes - CT Exams Abdomen/Pelvis CT Interpretation: Tele-radiologist Report, Normal Appendix, No appendicitis, Other (diverticulitis; renal cyst) Ordered Tests: Active Orders 24 hr Category Date Time Status IV Insertion STAT Care 12/13/22 23:39 Active ABDOMEN AND PELVIS W/0 CONTRAS [CT] Stat Exams 12/13/22 23:40 Taken AMYLASE Stat Lab 12/13/22 00:07 Completed CBC W DIFF Stat Lab 12/13/22 00:07 Completed CMP Stat Lab 12/13/22 00:07 Completed LIPASE Stat Lab 12/13/22 00:07 Completed Lactic Acid Stat Lab 12/13/22 23:39 Completed UA W/RFX UR CULTURE Stat Lab 12/13/22 23:39 Ordered Medication Summary Discontinued Medications Generic Name Dose Route Start Last Admin Trade Name Freq PRN Reason Stop Dose Admin Famotidine 20 mg 12/13/22 23:39 12/13/22 23:58 Famotidine 20 Mg/1 Vial IV 12/13/22 23:40 20 mg STAT ONE Administration Famotidine Confirm 12/13/22 23:47 Famotidine 20 Mg/1 Vial Administered 12/13/22 23:48 Dose 20 mg IV .STK-MED ONE Hydromorphone HCl 1 mg 12/13/22 23:39 12/13/22 23:58 Hydromorphone 1 Mg/1ml Inj 1 Mg/Ml Syringe IV 12/13/22 23:40 1 mg STAT ONE Administration Hydromorphone HCl Confirm 12/13/22 23:47 Hydromorphone 1 Mg/1ml Inj 1 Mg/Ml Syringe Administered 12/13/22 23:48 Dose 1 mg .ROUTE .STK-MED ONE Sodium Chloride 1,000 mls @ 999 mls/hr 12/13/22 23:39 12/13/22 23:58 Sodium Chloride 0.9% 1000 Ml IV 12/14/22 00:39 999 mls/hr .Q1H1M STA Administration Ceftriaxone Sodium/Dextrose 1 g in 50 mls @ 100 mls/hr 12/13/22 23:42 12/13/22 23:59 Rocephin 1 Gm-D5w 50 Ml Bag IV 12/14/22 00:11 100 ml/hr STAT STA 100 mls/hr Administration Sodium Chloride Confirm 12/13/22 23:47 Sodium Chloride 0.9% 1000 Ml Administered 12/13/22 23:48 Dose 1,000 mls @ ud .ROUTE .STK-MED ONE Ceftriaxone Sodium/Dextrose Confirm 12/13/22 23:48 Rocephin 1 Gm-D5w 50 Ml Bag Administered 12/13/22 23:49 Dose 1 g in 50 mls @ ud IV .STK-MED ONE Ondansetron HCl 4 mg 12/13/22 23:39 12/13/22 23:58 Ondansetron Hcl 4 Mg/2 Ml Vial IV 12/13/22 23:40 4 mg STAT ONE Administration Ondansetron HCl Confirm 12/13/22 23:47 Ondansetron Hcl 4 Mg/2 Ml Vial Administered 12/13/22 23:48 Dose 4 mg .ROUTE .STK-MED ONE Lab/Rad Data: Laboratory Result Diagrams 12/13/22 00:07 12/13/22 00:07 Laboratory Results 12/14/22 12/13/22 12/13/22 Range/Units 00:10 00:07 00:07 WBC 11.9 H (4.0-10.5) x10^3/uL RBC 4.78 (4.1-5.6) x10^6/uL Hgb 15.1 (12.5-18.0) g/dL Hct 45.5 (42-50) % MCV 95.2 (78-100) fL MCH 31.6 (26-32) pg MCHC 33.2 (32-36) g/dL RDW 13.2 (11.5-14.0) % Plt Count 247 (150-450) x10^3/uL MPV 9.5 (7.5-11.0) fL Gran % 69.1 H (36.0-66.0) % Immature Gran % (Auto) 0.3 (0.00-0.4) % Nucleat RBC Rel Count 0.0 (0.00-0.1) % Eos # (Auto) 0.11 (0-0.5) x10^3/uL Immature Gran # (Auto) 0.03 (0.00-0.03) x10^3u/L Absolute Lymphs (auto) 2.72 (1.0-4.6) x10^3/uL Absolute Monos (auto) 0.77 (0.0-1.3) x10^3/uL Absolute Nucleated RBC 0.00 (0.00-0.01) x10^3u/L Lymphocytes % 22.9 L (24.0-44.0) % Monocytes % 6.5 (0.0-12.0) % Eosinophils % 0.9 (0.00-5.0) % Basophils % 0.3 (0.0-0.4) % Absolute Granulocytes 8.22 H (1.4-6.9) x10^3/uL Basophils # 0.04 (0-0.4) x10^3/uL Sodium 141 (137-145) mmol/L Potassium 3.6 (3.5-5.1) mmol/L Chloride 107 (98-107) mmol/L Carbon Dioxide 23 (22-30) mmol/L Anion Gap 15.4 H (5-15) MEQ/L BUN 13 (9-20) mg/dL Creatinine 0.94 (0.66-1.25) mg/dL Estimated GFR > 60.0 ML/MIN Glucose 95 (74-106) mg/dL Lactic Acid 1.1 (0.4-2.0) Calcium 9.3 (8.4-10.2) mg/dL Total Bilirubin 0.60 (0.2-1.3) mg/dL AST 32 (17-59) U/L ALT 73 H (0-50) U/L Alkaline Phosphatase 79 (38-126) U/L Serum Total Protein 7.1 (6.3-8.2) g/dL Albumin 4.2 (3.5-5.0) g/dL Amylase 54 (30-110) U/L Lipase 37 (23-300) U/L - Progress Progress: improved, re-examined Progress Note: 12/14/22 01:01 discussed results with pt and risk/benefits of antibiotics and plan to followup with his PMD and he wishes to proceed. Counseled pt/family regarding: lab results, diagnosis, need for follow-up, rad results Medical Desision Making - Discussion of managment Reviewed:: Test results, Need for additional workup Agreed on:: Treatment plan, need for follow-up - Departure Departure Disposition: Home Clinical Impression: Diverticulitis Condition: Good Critical Care Time: No Referrals: JAVI BEJARANO [Primary Care Provider] - Follow up/PCP as directed Instructions: Diverticulitis (DC), High Fiber Diet Additional Instructions: follow-up with your Dr. for your diverticulosis. return meantime if not improving, vomiting, or any other symptoms of concern. Prescriptions: Amox Tr/Potass Clav. 875 mg [Augmentin 875-125 Tablet] 875 mg PO BID #20 tablet Metronidazole 500 mg [Flagyl 500 MG] 500 mg PO QID #40 tablet
[2022-12-13] MEDS ORDERED: ROCEPHIN 1 Gm-D5w 50 ml Bag** 1 G/50 ML IVPB IV STA (23:42)
[2022-12-13] MEDS ORDERED: Hydromorphone 1 mg/ml Injection ONE (23:47)
[2022-12-13] MEDS ORDERED: Zofran 4 MG/2 ML VIAL ONE (23:47)
[2022-12-13] MEDS ORDERED: Sodium Chloride 0.9% 1000 ML 1,000 ML ONE (23:47)
[2022-12-13] MEDS ORDERED: ROCEPHIN 1 Gm-D5w 50 ml Bag** 1 G/50 ML IVPB IV ONE (23:48)
[2022-12-14 00:10] LABS: Absolute Neutrophil Ct (ANC) 8.22 x10^3/uL (1.4-6.9); BASOPHIL % 0.3 % (0.0-0.4); Basophil (Absolute #) 0.04 x10^3/uL (0-0.4); Eosinophil % 0.9 % (0.00-5.0); Eosinophil (Absolute #) 0.11 x10^3/uL (0-0.5); Hematocrit 45.5 % (42-50); Hemoglobin 15.1 g/dL (12.5-18.0); IMMATURE GRAN # 0.03 x10^3u/L (0.00-0.03); IMMATURE GRAN % 0.3 % (0.00-0.4); Lymphocyte (Absolute #) 2.72 x10^3/uL (1.0-4.6); Lymphocytes % 22.9 % (24.0-44.0); Mean Cell Volume 95.2 fL (78-100); Mean Corpuscular Hemoglobin 31.6 pg (26-32); Mean Corpuscular Hgb Concent. 33.2 g/dL (32-36); Mean Platelet Volume 9.5 fL (7.5-11.0); Monocyte (Absolute #) 0.77 x10^3/uL (0.0-1.3); Monocytes % 6.5 % (0.0-12.0); Neutrophil % 69.1 % (36.0-66.0); Platelet Count 247 x10^3/uL (150-450); Red Blood Count 4.78 x10^6/uL (4.1-5.6); Red Cell Distribution Width 13.2 % (11.5-14.0); White Blood Count 11.9 x10^3/uL (4.0-10.5)
[2022-12-14 00:28] LABS: ALBUMIN 4.2 g/dL (3.5-5.0); ALKALINE PHOSPHATASE 79 U/L (38-126); AMYLASE 54 U/L (30-110); ANION GAP 15.4 MEQ/L (5-15); BLOOD UREA NITROGEN 13 mg/dL (9-20); CHLORIDE 107 mmol/L (98-107); Calcium 9.3 mg/dL (8.4-10.2); Carbon Dioxide 23 mmol/L (22-30); Creatinine 1 0.94 mg/dL (0.66-1.25); EST GLOMERULAR FILTRATION RATE > 60.0 ML/MIN; Glucose 95 mg/dL (74-106); LIPASE 37 U/L (23-300); Potassium 3.6 mmol/L (3.5-5.1); SGOT/AST 32 U/L (17-59); SGPT/ALT 73 U/L (0-50); SODIUM 141 mmol/L (137-145); Total Protein 7.1 g/dL (6.3-8.2)
[2022-12-14] MEDS ORDERED: Hydromorphone 1 mg/ml Injection IV ONE (01:00)
[2022-12-14] MEDS ORDERED: Flagyl 500 MG PO ONE (01:00)
[2022-12-14] MEDS ORDERED: Hydromorphone 1 mg/ml Injection ONE (01:10)
[2022-12-14] MEDS ORDERED: Flagyl 500 MG ONE (01:10)
[2022-12-14 01:14] VITALS: BP 119/60; PULSE 48; O2SAT 98
--- NOTE | 2022-12-14 08:53 | XRAY ---
Indication: Abdomen and pelvic pain. Diarrhea. Multiple contiguous axial images obtained through the abdomen and pelvis without contrast. Comparison: None Lung bases clear. Heart not enlarged. Noncontrasted stomach and bowel loops appear nonobstructed with normal appendix. Mild scattered colonic diverticulosis with mild diverticulitis proximal sigmoid colon. No free fluid/air. Mild fatty liver with incidental Nohemy's lobe. Right lower kidney demonstrates 3.5 cm cyst. Remaining liver, gallbladder, pancreas, spleen, adrenal glands, kidneys, ureters, bladder, and aorta are unremarkable for noncontrast exam. Osseous structures intact with mild degenerative changes throughout the thoracolumbar spine and both hips. Both femur heads demonstrates small focus of subcortical serpiginous sclerosis as seen with avascular necrosis. Impression: 1. Mild scattered colonic diverticulosis with mild diverticulitis proximal sigmoid colon. No complications. 2. Chronic findings including fatty liver, right renal cyst, and chronic bony findings. Comment: Preliminary interpretation made by C. No critical discrepancy.
== END 2022-12-14 01:38 | disposition home or self-care (01) ==
LOC: ED 22:32
DX: K57.92 Diverticulitis of intestine, part unspecified, without perforation or abscess without bleeding (principal); R10.32 Left lower quadrant pain; R10.31 Right lower quadrant pain; R19.7 Diarrhea, unspecified; E78.5 Hyperlipidemia, unspecified; E11.9 Type 2 diabetes mellitus without complications; Z79.891 Long term (current) use of opiate analgesic; Z79.84 Long term (current) use of oral hypoglycemic drugs; Z79.899 Other long term (current) drug therapy
CPT/HCPCS: 36000; 36415; 74176; 80053; 82150; 83605; 83690; 85025; 96365; 96374; 96375; 96376; 99284; J0696; J1170; J2405; A9270-GY

== ENCOUNTER 2022-12-18 21:13 | Emergency (ER) | payer MEDICARE ==
[2022-12-18] MEDS ORDERED: Zofran 4 MG/2 ML VIAL IV ONE (23:02)
[2022-12-18] MEDS ORDERED: Sodium Chloride 0.9% 1000 ML 1,000 ML IV STA (23:02)
[2022-12-18 23:13] LABS: BASOPHIL % 0.5 % (0.0-0.4); Basophil (Absolute #) 0.05 x10^3/uL (0-0.4); Eosinophil % 1.4 % (0.00-5.0); Eosinophil (Absolute #) 0.14 x10^3/uL (0-0.5); Hemoglobin 15.1 g/dL (12.5-18.0); IMMATURE GRAN # 0.02 x10^3u/L (0.00-0.03); IMMATURE GRAN % 0.2 % (0.00-0.4); Lymphocyte (Absolute #) 2.09 x10^3/uL (1.0-4.6); Lymphocytes % 20.5 % (24.0-44.0); Mean Cell Volume 94.3 fL (78-100); Mean Corpuscular Hemoglobin 31.7 pg (26-32); Mean Corpuscular Hgb Concent. 33.6 g/dL (32-36); Mean Platelet Volume 10.7 fL (7.5-11.0); Monocyte (Absolute #) 0.69 x10^3/uL (0.0-1.3); Monocytes % 6.8 % (0.0-12.0); Neutrophil % 70.6 % (36.0-66.0); Platelet Count 262 x10^3/uL (150-450); Red Blood Count 4.77 x10^6/uL (4.1-5.6); Red Cell Distribution Width 12.9 % (11.5-14.0); White Blood Count 10.2 x10^3/uL (4.0-10.5)
[2022-12-18] MEDS ORDERED: Zofran 4 MG/2 ML VIAL ONE (23:13)
[2022-12-18] MEDS ORDERED: Sodium Chloride 0.9% 1000 ML 1,000 ML ONE (23:13)
[2022-12-18 23:18] LABS: ALBUMIN 4.2 g/dL (3.5-5.0); ALKALINE PHOSPHATASE 78 U/L (38-126); ANION GAP 15.1 MEQ/L (5-15); BLOOD UREA NITROGEN 15 mg/dL (9-20); CHLORIDE 107 mmol/L (98-107); Calcium 8.7 mg/dL (8.4-10.2); Carbon Dioxide 21 mmol/L (22-30); Creatinine 1 0.86 mg/dL (0.66-1.25); EST GLOMERULAR FILTRATION RATE > 60.0 ML/MIN; Glucose 116 mg/dL (74-106); LIPASE 67 U/L (23-300); Potassium 3.6 mmol/L (3.5-5.1); SGOT/AST 39 U/L (17-59); SGPT/ALT 76 U/L (0-50); SODIUM 140 mmol/L (137-145)
[2022-12-18 23:22] LABS: Appearance Clear (Clear); Bacteria None Seen /HPF (None Seen); Bilirubin Negative (Negative); Blood Negative (Negative); Epithelial Cells None Seen /HPF (None Seen); Glucose, Urine Negative (Negative); Hyaline Casts NONE SEEN /LPF (0-2); Ketones Negative (Negative); Leukocyte Esterase Negative (Negative); Nitrite Negative (Negative); Ph 6.5 (4.6-8.0); Protein,Urine Dip Negative (Negative); RBC 0-2 /HPF (0-5); Urobilinogen 0.2 mg/dL (0.2); WBC 0-2 /HPF (0-5)
[2022-12-18 23:29] LABS: ADD URINE CULTURE? NO (NO)
[2022-12-19] MEDS ORDERED: Hydromorphone 1 mg/ml Injection IV ONE (00:25)
[2022-12-19] MEDS ORDERED: Hydromorphone 1 mg/ml Injection ONE (00:31)
--- NOTE | 2022-12-19 01:11 | ERPHSYRPT ---
- History of Present Illness Historian: patient Exam Limitations: no limitations Patient Subjective Stated Complaint: pt states I was in here Wednesday and it still has not got better Triage Nursing Assessment: pt ambulated into the er; pt is axo x4; c/o LLQ pain; pt states 04/19; c/o N/D; no respiratory distress present; active bowel sounds; skin PDW; bradycardic Physician History: Presents w/ worsening abd pain and decreased appetite. Location: LLQ. Constant. Described as: cramps. Not associated to meals. Endorses nausea but denies fever, chills, vomiting, constipation or dysuria. He was diagnosed w/ diverticulitis at his last ER visit and is still taking his prescribed abx. He hasn't tried advancing his diet at this point. Timing/Duration: day(s) (10) Activities at Onset: none Quality: cramping, sharpness, stabbing Abdominal Pain Onset Location: LLQ Pain Radiation: no radiation Severity of Pain-Max: severe Severity of Pain-Current: moderate Modifying Factors: Improves With: nothing. Worsens With: movement Associated Symptoms: loss of appetite, nausea, No chest pain, No fever/chills, No vomiting Previous symptoms: same symptoms as today Allergies/Adverse Reactions: No Known Drug Allergies Allergy (Verified 12/13/22 22:55) Home Medications: Levothyroxine Sodium 100 mcg PO DAILY 04/01/22 [History] Omeprazole 20 mg PO DAILY 04/01/22 [History] Oxycodone HCl/Acetaminophen [Oxycodone-Acetaminophen 5-325] 1 each PO TID PRN PRN 04/01/22 [History] Rosuvastatin Calcium 10 mg PO HS 04/01/22 [History] Testosterone Cypionate 1 ml IM UD 04/01/22 [History] Ziprasidone 20 mg [Geodon 20 MG Capsule] 60 mg PO BID 04/26/22 [History] Levocetirizine Dihydrochloride [Xyzal] 5 mg PO DAILY 06/29/22 [History] Magnesium Oxide [Magnesium] 250 mg PO DAILY 06/29/22 [History] Sitagliptin Phosphate [Januvia] 100 mg PO DAILY 06/29/22 [History] Cyanocobalamin 500 Mcg [Vitamin B-12 500 MCG] 500 mcg PO DAILY 12/14/22 [History] Pyridoxine HCl 100 mg [Vitamin B-6 (Pyridoxine) 100 MG] 100 mg PO DAILY 12/14/22 [History] hydrOXYzine HCL [Hydroxyzine HCl] 50 mg PO TID PRN 12/14/22 [History] Hx Tetanus, Diphtheria Vaccination/Date Given: Yes Hx Influenza Vaccination/Date Given: Yes Hx Pneumococcal Vaccination/Date Given: Yes Travel Risk - International Travel Have you traveled outside of the country in past 3 weeks: No - Coronavirus Screening Are you exhibiting any of the following symptoms?: No Close contact with a COVID-19 positive Pt in past 14-21 Days: No - Vaccine Status Have you recieved a Covid-19 vaccination: Yes [employer]ist: Moderna - Vaccination Dates Date of 2cond Vaccination (if applicable): 2020 - Review of Systems Constitutional: No Fever, No Chills Eyes: No Symptoms Ears, Nose, & Throat: No Symptoms Respiratory: No Symptoms Cardiac: No Symptoms Abdominal/Gastrointestinal: Abdominal Pain, Nausea, Hematemesis, Hematochezia, Melena, Dysphagia, Appetite Changes, No Vomiting Genitourinary Symptoms: No Symptoms Musculoskeletal: No Symptoms Skin: No Symptoms Neurological: No Symptoms Psychological: No Symptoms - Past Medical History Pertinent Past Medical History: Yes Neurological History: No Pertinent History ENT History: No Pertinent History Cardiac History: High Cholesterol Respiratory History: No Pertinent History Endocrine Medical History: No Pertinent History Musculoskeletal History: Degenerative Disk Disease GI Medical History: Diverticulitis, Diverticulosis, GERD Psycho-Social History: Anxiety, Bipolar, Depression, Other Other Medical History: SCHIZOPHRENIA, ANXIETY/DEPRESSION, GERD. SX HX: RIGHT HAND SURGERY DUE TO TRAUMA. 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 - Past Surgical History Past Surgical History: Yes Other Surgical History: eye surgeryx2 hand surgery - Social History Smoking Status: Never smoker Exposure to second hand smoke: No Drug Use: none Patient Lives Alone: No - Nursing Vital Signs Nursing Vital Signs: Initial Vital Signs Temperature 97.6 F 12/18/22 21:29 Pulse Rate 49 L 12/18/22 21:29 Respiratory Rate 20 12/18/22 21:29 Blood Pressure 142/65 12/18/22 21:29 O2 Sat by Pulse Oximetry 100 12/18/22 21:29 Pain Scale Pain Intensity 3 - Physical Exam General Appearance: no apparent distress Eye Exam: eyes nml inspection Ears, Nose, Throat Exam: normal ENT inspection Neck Exam: normal inspection Respiratory Exam: normal breath sounds, lungs clear Cardiovascular Exam: regular rate/rhythm, normal heart sounds, capillary refill <2 sec Gastrointestinal/Abdomen Exam: soft, normal bowel sounds, tenderness (LLQ), No guarding, No rebound Back Exam: normal inspection, No CVA tenderness Extremity Exam: normal inspection Neurologic Exam: alert, oriented x 3, cooperative Skin Exam: normal color, warm, dry SpO2 Interpretation: normal SpO2: 98 O2 Delivery: Room Air - Course Nursing assessment & vital signs reviewed: Yes - CT Exams Abdomen/Pelvis CT Interpretation: diverticulitis (improving diverticulitis) Ordered Tests: Medication Summary Discontinued Medications Generic Name Dose Route Start Last Admin Trade Name Freq PRN Reason Stop Dose Admin Hydromorphone HCl 1 mg 12/19/22 00:25 12/19/22 00:32 Hydromorphone 1 Mg/1ml Inj 1 Mg/Ml Syringe IV 12/19/22 00:26 1 mg STAT ONE Administration Hydromorphone HCl Confirm 12/19/22 00:31 Hydromorphone 1 Mg/1ml Inj 1 Mg/Ml Syringe Administered 12/19/22 00:32 Dose 1 mg .ROUTE .STK-MED ONE Sodium Chloride 1,000 mls @ 999 mls/hr 12/18/22 23:02 12/19/22 00:17 Sodium Chloride 0.9% 1000 Ml IV 12/19/22 00:02 Infused .Q1H1M STA Infusion Sodium Chloride Confirm 12/18/22 23:13 Sodium Chloride 0.9% 1000 Ml Administered 12/18/22 23:14 Dose 1,000 mls @ ud .ROUTE .STK-MED ONE Ondansetron HCl 4 mg 12/18/22 23:02 12/18/22 23:15 Ondansetron Hcl 4 Mg/2 Ml Vial IV 12/18/22 23:03 4 mg STAT ONE Administration Ondansetron HCl Confirm 12/18/22 23:13 Ondansetron Hcl 4 Mg/2 Ml Vial Administered 12/18/22 23:14 Dose 4 mg .ROUTE .STK-MED ONE Lab/Rad Data: Laboratory Result Diagrams 12/18/22 21:55 12/18/22 21:55 Laboratory Results 12/18/22 12/18/22 12/18/22 Range/Units 23:16 21:55 21:55 WBC 10.2 (4.0-10.5) x10^3/uL RBC 4.77 (4.1-5.6) x10^6/uL Hgb 15.1 (12.5-18.0) g/dL Hct 45.0 (42-50) % MCV 94.3 (78-100) fL MCH 31.7 (26-32) pg MCHC 33.6 (32-36) g/dL RDW 12.9 (11.5-14.0) % Plt Count 262 (150-450) x10^3/uL MPV 10.7 (7.5-11.0) fL Gran % 70.6 H (36.0-66.0) % Immature Gran % (Auto) 0.2 (0.00-0.4) % Nucleat RBC Rel Count 0.0 (0.00-0.1) % Eos # (Auto) 0.14 (0-0.5) x10^3/uL Immature Gran # (Auto) 0.02 (0.00-0.03) x10^3u/L Absolute Lymphs (auto) 2.09 (1.0-4.6) x10^3/uL Absolute Monos (auto) 0.69 (0.0-1.3) x10^3/uL Absolute Nucleated RBC 0.00 (0.00-0.01) x10^3u/L Lymphocytes % 20.5 L (24.0-44.0) % Monocytes % 6.8 (0.0-12.0) % Eosinophils % 1.4 (0.00-5.0) % Basophils % 0.5 (0.0-0.4) % Absolute Granulocytes 7.20 H (1.4-6.9) x10^3/uL Basophils # 0.05 (0-0.4) x10^3/uL Sodium 140 (137-145) mmol/L Potassium 3.6 (3.5-5.1) mmol/L Chloride 107 (98-107) mmol/L Carbon Dioxide 21 L (22-30) mmol/L Anion Gap 15.1 H (5-15) MEQ/L BUN 15 (9-20) mg/dL Creatinine 0.86 (0.66-1.25) mg/dL Estimated GFR > 60.0 ML/MIN Glucose 116 H (74-106) mg/dL Lactic Acid 1.1 (0.4-2.0) Calcium 8.7 (8.4-10.2) mg/dL Total Bilirubin 0.50 (0.2-1.3) mg/dL AST 39 (17-59) U/L ALT 76 H (0-50) U/L Alkaline Phosphatase 78 (38-126) U/L Serum Total Protein 7.0 (6.3-8.2) g/dL Albumin 4.2 (3.5-5.0) g/dL Lipase 67 (23-300) U/L Urine Color (Yellow) Urine Appearance (Clear) Urine pH (4.6-8.0) Ur Specific [place] (1.005-1.030) Urine Protein (Negative) Urine Glucose (UA) (Negative) mg/dL Urine Ketones (Negative) Urine Blood (Negative) Urine Nitrite (Negative) Urine Bilirubin (Negative) Urine Urobilinogen (0.2) mg/dL Ur Leukocyte Esterase (Negative) U Hyaline Cast (Auto) (0-2) /LPF Urine Microscopic RBC (0-5) /HPF Urine Microscopic WBC (0-5) /HPF Ur Epithelial Cells (None Seen) /HPF Urine Bacteria (None Seen) /HPF Urine Culture Reflexed (NO) 12/18/22 Range/Units 21:55 WBC (4.0-10.5) x10^3/uL RBC (4.1-5.6) x10^6/uL Hgb (12.5-18.0) g/dL Hct (42-50) % MCV (78-100) fL MCH (26-32) pg MCHC (32-36) g/dL RDW (11.5-14.0) % Plt Count (150-450) x10^3/uL MPV (7.5-11.0) fL Gran % (36.0-66.0) % Immature Gran % (Auto) (0.00-0.4) % Nucleat RBC Rel Count (0.00-0.1) % Eos # (Auto) (0-0.5) x10^3/uL Immature Gran # (Auto) (0.00-0.03) x10^3u/L Absolute Lymphs (auto) (1.0-4.6) x10^3/uL Absolute Monos (auto) (0.0-1.3) x10^3/uL Absolute Nucleated RBC (0.00-0.01) x10^3u/L Lymphocytes % (24.0-44.0) % Monocytes % (0.0-12.0) % Eosinophils % (0.00-5.0) % Basophils % (0.0-0.4) % Absolute Granulocytes (1.4-6.9) x10^3/uL Basophils # (0-0.4) x10^3/uL Sodium (137-145) mmol/L Potassium (3.5-5.1) mmol/L Chloride (98-107) mmol/L Carbon Dioxide (22-30) mmol/L Anion Gap (5-15) MEQ/L BUN (9-20) mg/dL Creatinine (0.66-1.25) mg/dL Estimated GFR ML/MIN Glucose (74-106) mg/dL Lactic Acid (0.4-2.0) Calcium (8.4-10.2) mg/dL Total Bilirubin (0.2-1.3) mg/dL AST (17-59) U/L ALT (0-50) U/L Alkaline Phosphatase (38-126) U/L Serum Total Protein (6.3-8.2) g/dL Albumin (3.5-5.0) g/dL Lipase (23-300) U/L Urine Color Yellow (Yellow) Urine Appearance Clear (Clear) Urine pH 6.5 (4.6-8.0) Ur Specific [place] 1.010 (1.005-1.030) Urine Protein Negative (Negative) Urine Glucose (UA) Negative (Negative) mg/dL Urine Ketones Negative (Negative) Urine Blood Negative (Negative) Urine Nitrite Negative (Negative) Urine Bilirubin Negative (Negative) Urine Urobilinogen 0.2 (0.2) mg/dL Ur Leukocyte Esterase Negative (Negative) U Hyaline Cast (Auto) NONE SEEN (0-2) /LPF Urine Microscopic RBC 0-2 (0-5) /HPF Urine Microscopic WBC 0-2 (0-5) /HPF Ur Epithelial Cells None Seen (None Seen) /HPF Urine Bacteria None Seen (None Seen) /HPF Urine Culture Reflexed NO (NO) - Progress Progress: improved Progress Note: Patient feeling better after IVF and anelgesics. Labs and imaging show improving diverticulitis w/out evidence of sepsis. Patient educated on advancing to full liquid diet and BRAT diet as tolerated. Continue abx as prescribed. Patient at ease w/ evaluation and comfortable w/ d/c home. Counseled pt/family regarding: lab results, diagnosis, rad results Medical Desision Making - Diagnostic Testing Diagnostic test were ordered, analyzed, and reviewed by me: Yes Radiological Interpretation: Reviewed by me, Teleradiologist Report - Risk of complications The pt has a mod risk of morbidity or mortality based on: Need for prescription drug management - Departure Departure Disposition: Home Clinical Impression: Diverticulitis Condition: Good Critical Care Time: No Referrals: JAVI BEJARANO [Primary Care Provider] - Follow up/PCP as directed Instructions: Diverticulitis (DC)
[2022-12-19 02:17] VITALS: BP 136/64; PULSE 50
--- NOTE | 2022-12-19 08:25 | XRAY ---
Indication: Left lower quadrant pain. Diverticulitis. Multiple contiguous axial images obtained through the abdomen and pelvis using 80 cc Isovue 370 contrast. Comparison: December 13, 2022 Lung bases now demonstrates mild bibasilar dependent atelectasis. No infiltrate or effusion. Heart not enlarged. Noncontrasted stomach and bowel loops nonobstructed again with normal appendix. There remains mild scattered colonic diverticulosis. Previous proximal sigmoid diverticulitis improved with mild residual. Again no free fluid/air. Again mild fatty liver with incidental Nohemy's lobe and right renal cysts. Remaining liver, gallbladder, pancreas, spleen, adrenal glands, kidneys, ureters, bladder, and aorta are unremarkable. No pathologic retroperitoneal lymphadenopathy. Impression: 1. Improving sigmoid diverticulitis with mild residual. 2. Again chronic findings including fatty liver and right renal cysts. 3. Remaining CT abdomen/pelvis with contrast exam is negative. Comment: Preliminary interpretation made by C. No critical discrepancy.
[2022-12-20 18:54] VITALS: O2SAT 98
== END 2022-12-19 02:16 | disposition home or self-care (01) ==
LOC: ED 21:13
DX: K57.92 Diverticulitis of intestine, part unspecified, without perforation or abscess without bleeding (principal); R10.32 Left lower quadrant pain; R11.0 Nausea; E78.5 Hyperlipidemia, unspecified; Z79.891 Long term (current) use of opiate analgesic; Z79.84 Long term (current) use of oral hypoglycemic drugs; Z79.899 Other long term (current) drug therapy
CPT/HCPCS: 36000; 36415; 74177; 80053; 81001; 83605; 83690; 85025; 87040; 96360; 96374; 96375; 99284; J1170; J2405

== ENCOUNTER 2023-01-05 08:17 | Emergency (ER) | payer MEDICARE ==
[2023-01-05] MEDS ORDERED: Sodium Chloride 0.9% 1000 ML 1,000 ML IV STA (08:41)
[2023-01-05] MEDS ORDERED: Hydromorphone 1 mg/ml Injection IV ONE ×2 (08:41→11:24)
[2023-01-05] MEDS ORDERED: Zofran 4 MG/2 ML VIAL IV ONE (08:41)
[2023-01-05 08:52] LABS: Absolute Neutrophil Ct (ANC) 5.24 x10^3/uL (1.4-6.9); BASOPHIL % 0.5 % (0.0-0.4); Basophil (Absolute #) 0.04 x10^3/uL (0-0.4); Eosinophil % 1.7 % (0.00-5.0); Eosinophil (Absolute #) 0.15 x10^3/uL (0-0.5); Hematocrit 48.3 % (42-50); Hemoglobin 16.1 g/dL (12.5-18.0); IMMATURE GRAN # 0.02 x10^3u/L (0.00-0.03); IMMATURE GRAN % 0.2 % (0.00-0.4); Lymphocyte (Absolute #) 2.56 x10^3/uL (1.0-4.6); Lymphocytes % 29.4 % (24.0-44.0); Mean Cell Volume 95.3 fL (78-100); Mean Corpuscular Hemoglobin 31.8 pg (26-32); Mean Corpuscular Hgb Concent. 33.3 g/dL (32-36); Mean Platelet Volume 9.9 fL (7.5-11.0); Monocyte (Absolute #) 0.69 x10^3/uL (0.0-1.3); Monocytes % 7.9 % (0.0-12.0); Neutrophil % 60.3 % (36.0-66.0); Platelet Count 256 x10^3/uL (150-450); Red Blood Count 5.07 x10^6/uL (4.1-5.6); Red Cell Distribution Width 13.6 % (11.5-14.0); White Blood Count 8.7 x10^3/uL (4.0-10.5)
[2023-01-05] MEDS ORDERED: Zofran 4 MG/2 ML VIAL ONE (08:57)
[2023-01-05] MEDS ORDERED: Hydromorphone 1 mg/ml Injection ONE ×2 (08:57→11:33)
[2023-01-05] MEDS ORDERED: Sodium Chloride 0.9% 1000 ML 1,000 ML ONE (08:57)
[2023-01-05 09:08] LABS: ALBUMIN 4.7 g/dL (3.5-5.0); ALKALINE PHOSPHATASE 85 U/L (38-126); AMYLASE 67 U/L (30-110); ANION GAP 17.7 MEQ/L (5-15); BLOOD UREA NITROGEN 14 mg/dL (9-20); CHLORIDE 104 mmol/L (98-107); Calcium 9.2 mg/dL (8.4-10.2); Carbon Dioxide 21 mmol/L (22-30); Creatinine 1 0.89 mg/dL (0.66-1.25); EST GLOMERULAR FILTRATION RATE > 60.0 ML/MIN; Glucose 98 mg/dL (74-106); LIPASE 54 U/L (23-300); Potassium 3.7 mmol/L (3.5-5.1); SGOT/AST 35 U/L (17-59); SGPT/ALT 86 U/L (0-50); SODIUM 139 mmol/L (137-145); Total Protein 7.8 g/dL (6.3-8.2)
--- NOTE | 2023-01-05 09:59 | ERPHSYRPT ---
- History of Present Illness Time Seen by Provider: 01/05/23 08:35 Historian: patient Exam Limitations: no limitations Patient Subjective Stated Complaint: Abdominal pain Triage Nursing Assessment: Patient ambulated back to ED and transferred self to bed. Patient A+O X3. Patient's skin pink, warm and dry. Patient complains of left lower abdominal pain constant aching 8/10 worse when getting up out of a chair. Patient states the pain has been for 3 days. Patient complains of nausea, but denies vomiting and diarrhea. Abdomen soft and round with BS X 4. Physician History: Patient is a 57-year-old white male who presents with complaint of abdominal pain for 3 days. The pain is worst in the left lower quadrant he did have some transient pain in the right lower quadrant as well he has been nauseated and has had some diarrhea. He states that it seems similar to his diverticulitis and this would be his third episode he did not require hospitalization with the others. Timing/Duration: day(s) (3) Activities at Onset: none Quality: cramping, sharpness Abdominal Pain Onset Location: LLQ Pain Radiation: RLQ Severity of Pain-Max: moderate Severity of Pain-Current: moderate Modifying Factors: Improves With: movement Associated Symptoms: diarrhea, nausea Previous symptoms: same symptoms as today Allergies/Adverse Reactions: No Known Drug Allergies Allergy (Verified 01/05/23 08:24) Home Medications: Levothyroxine Sodium 100 mcg PO DAILY 04/01/22 [History] Omeprazole 20 mg PO DAILY 04/01/22 [History] Oxycodone HCl/Acetaminophen [Oxycodone-Acetaminophen 5-325] 1 each PO TID PRN PRN 04/01/22 [History] Rosuvastatin Calcium 10 mg PO HS 04/01/22 [History] Testosterone Cypionate 1 ml IM UD 04/01/22 [History] Ziprasidone 20 mg [Geodon 20 MG Capsule] 60 mg PO BID 04/26/22 [History] Levocetirizine Dihydrochloride [Xyzal] 5 mg PO DAILY 06/29/22 [History] Magnesium Oxide [Magnesium] 250 mg PO DAILY 06/29/22 [History] Sitagliptin Phosphate [Januvia] 100 mg PO DAILY 06/29/22 [History] Cyanocobalamin 500 Mcg [Vitamin B-12 500 MCG] 500 mcg PO DAILY 12/14/22 [History] Pyridoxine HCl 100 mg [Vitamin B-6 (Pyridoxine) 100 MG] 100 mg PO DAILY 12/14/22 [History] hydrOXYzine HCL [Hydroxyzine HCl] 50 mg PO TID PRN 12/14/22 [History] Hx Tetanus, Diphtheria Vaccination/Date Given: Yes Hx Influenza Vaccination/Date Given: Yes Hx Pneumococcal Vaccination/Date Given: Yes Immunizations Up to Date: Yes Travel Risk - International Travel Have you traveled outside of the country in past 3 weeks: No - Coronavirus Screening Are you exhibiting any of the following symptoms?: No Close contact with a COVID-19 positive Pt in past 14-21 Days: No - Vaccine Status Have you recieved a Covid-19 vaccination: Yes [employer]: Moderna - Vaccination Dates Date of 2cond Vaccination (if applicable): 2020 - Review of Systems Constitutional: No Fever, No Chills Eyes: No Symptoms Ears, Nose, & Throat: No Symptoms Respiratory: No Cough, No Dyspnea Cardiac: No Chest Pain, No Edema, No Syncope Abdominal/Gastrointestinal: Abdominal Pain, Nausea, Diarrhea, No Vomiting Genitourinary Symptoms: No Dysuria Musculoskeletal: No Back Pain, No Neck Pain Skin: No Rash Neurological: No Dizziness, No Focal Weakness, No Sensory Changes Psychological: No Symptoms Endocrine: No Symptoms All Other Systems: Reviewed and Negative - Past Medical History Pertinent Past Medical History: Yes Neurological History: No Pertinent History ENT History: No Pertinent History Cardiac History: High Cholesterol Respiratory History: No Pertinent History Endocrine Medical History: No Pertinent History Musculoskeletal History: Degenerative Disk Disease GI Medical History: Diverticulitis, Diverticulosis, GERD Psycho-Social History: Anxiety, Bipolar, Depression, Other Other Medical History: SCHIZOPHRENIA, ANXIETY/DEPRESSION, GERD. SX HX: RIGHT HAND SURGERY DUE TO TRAUMA. 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 - Past Surgical History Past Surgical History: Yes Other Surgical History: eye surgeryx2 hand surgery - Social History Smoking Status: Never smoker Exposure to second hand smoke: No Drug Use: none Patient Lives Alone: No - Nursing Vital Signs Nursing Vital Signs: Initial Vital Signs Temperature 97.3 F 01/05/23 08:26 Pulse Rate 57 L 01/05/23 08:26 Respiratory Rate 19 01/05/23 08:26 Blood Pressure 143/79 01/05/23 08:26 O2 Sat by Pulse Oximetry 100 01/05/23 08:26 Pain Scale Pain Intensity 5 - Physical Exam General Appearance: mild distress, alert Eye Exam: PERRL/EOMI, eyes nml inspection Ears, Nose, Throat Exam: normal ENT inspection, pharynx normal, moist mucous membranes Neck Exam: normal inspection, non-tender, supple, full range of motion Respiratory Exam: normal breath sounds, lungs clear, No respiratory distress Cardiovascular Exam: regular rate/rhythm, normal heart sounds Gastrointestinal/Abdomen Exam: normal bowel sounds, tenderness, guarding, rebound, No mass Back Exam: normal inspection, normal range of motion, No CVA tenderness, No vertebral tenderness Extremity Exam: normal inspection, normal range of motion, pelvis stable Neurologic Exam: alert, oriented x 3, cooperative, normal mood/affect, nml cerebellar function, sensation nml, No motor deficits Skin Exam: normal color, warm, dry SpO2: 96 - Course Nursing assessment & vital signs reviewed: Yes - CT Exams Abdomen/Pelvis CT Interpretation: Other (Reviewed by ER physician) Ordered Tests: Active Orders 24 hr Category Date Time Status IV Insertion STAT Care 01/05/23 08:41 Active ABDOMEN AND PELVIS W CONTRAST [CT] Stat Exams 01/05/23 08:42 Completed AMYLASE Stat Lab 01/05/23 08:40 Completed CBC W DIFF Stat Lab 01/05/23 08:40 Completed CMP Stat Lab 01/05/23 08:40 Completed LIPASE Stat Lab 01/05/23 08:40 Completed Lactic Acid Stat Lab 01/05/23 08:41 Completed UA W/RFX UR CULTURE Stat Lab 01/05/23 10:25 Completed Medication Summary Generic Name Dose Route Start Last Admin Trade Name Freq PRN Reason Stop Dose Admin Hydromorphone HCl 1 mg 01/05/23 11:24 Hydromorphone 1 Mg/1ml Inj 1 Mg/Ml Syringe IV 01/05/23 11:25 STAT ONE Discontinued Medications Generic Name Dose Route Start Last Admin Trade Name Freq PRN Reason Stop Dose Admin Ampicillin Sodium/Sulbactam Sodium Confirm 01/05/23 10:21 Ampicillin /Sulbactam 3 G/Vial Administered 01/05/23 10:22 Dose 3 g .ROUTE .STK-MED ONE Hydromorphone HCl 1 mg 01/05/23 08:41 01/05/23 09:07 Hydromorphone 1 Mg/1ml Inj 1 Mg/Ml Syringe IV 01/05/23 08:42 1 mg STAT ONE Administration Hydromorphone HCl Confirm 01/05/23 08:57 Hydromorphone 1 Mg/1ml Inj 1 Mg/Ml Syringe Administered 01/05/23 08:58 Dose 1 mg .ROUTE .STK-MED ONE Sodium Chloride 1,000 mls @ 999 mls/hr 01/05/23 08:41 01/05/23 10:17 Sodium Chloride 0.9% 1000 Ml IV 01/05/23 09:41 Infused .Q1H1M STA Infusion Sodium Chloride Confirm 01/05/23 08:57 Sodium Chloride 0.9% 1000 Ml Administered 01/05/23 08:58 Dose 1,000 mls @ ud .ROUTE .STK-MED ONE Ampicillin Sodium/Sulbactam 100 mls @ 300 mls/hr 01/05/23 10:14 01/05/23 10:23 Sodium 3 g/ Sodium Chloride IV 01/05/23 10:33 300 mls/hr STAT ONE Administration Metronidazole 500 mg in 100 mls @ 200 mls/hr 01/05/23 10:15 01/05/23 11:11 Flagyl 500 Mg Ivpb IV 01/05/23 10:44 200 mls/hr STAT STA 200 mls/hr Administration Sodium Chloride Confirm 01/05/23 10:22 Sodium Chloride 0.9% Administered 01/05/23 10:23 Dose 100 mls @ ud .ROUTE .STK-MED ONE Metronidazole Confirm 01/05/23 10:22 Flagyl 500 Mg Ivpb Administered 01/05/23 10:23 Dose 500 mg in 100 mls @ ud IV .STK-MED ONE Ondansetron HCl 4 mg 01/05/23 08:41 01/05/23 09:07 Ondansetron Hcl 4 Mg/2 Ml Vial IV 01/05/23 08:42 4 mg STAT ONE Administration Ondansetron HCl Confirm 01/05/23 08:57 Ondansetron Hcl 4 Mg/2 Ml Vial Administered 01/05/23 08:58 Dose 4 mg .ROUTE .STK-MED ONE Lab/Rad Data: Laboratory Result Diagrams 01/05/23 08:40 01/05/23 08:40 Laboratory Results 01/05/23 01/05/23 01/05/23 Range/Units 10:25 08:41 08:40 WBC (4.0-10.5) x10^3/uL RBC (4.1-5.6) x10^6/uL Hgb (12.5-18.0) g/dL Hct (42-50) % MCV (78-100) fL MCH (26-32) pg MCHC (32-36) g/dL RDW (11.5-14.0) % Plt Count (150-450) x10^3/uL MPV (7.5-11.0) fL Gran % (36.0-66.0) % Immature Gran % (Auto) (0.00-0.4) % Nucleat RBC Rel Count (0.00-0.1) % Eos # (Auto) (0-0.5) x10^3/uL Immature Gran # (Auto) (0.00-0.03) x10^3u/L Absolute Lymphs (auto) (1.0-4.6) x10^3/uL Absolute Monos (auto) (0.0-1.3) x10^3/uL Absolute Nucleated RBC (0.00-0.01) x10^3u/L Lymphocytes % (24.0-44.0) % Monocytes % (0.0-12.0) % Eosinophils % (0.00-5.0) % Basophils % (0.0-0.4) % Absolute Granulocytes (1.4-6.9) x10^3/uL Basophils # (0-0.4) x10^3/uL Sodium 139 (137-145) mmol/L Potassium 3.7 (3.5-5.1) mmol/L Chloride 104 (98-107) mmol/L Carbon Dioxide 21 L (22-30) mmol/L Anion Gap 17.7 H (5-15) MEQ/L BUN 14 (9-20) mg/dL Creatinine 0.89 (0.66-1.25) mg/dL Estimated GFR > 60.0 ML/MIN Glucose 98 (74-106) mg/dL Lactic Acid 1.4 (0.4-2.0) Calcium 9.2 (8.4-10.2) mg/dL Total Bilirubin 1.30 (0.2-1.3) mg/dL AST 35 (17-59) U/L ALT 86 H (0-50) U/L Alkaline Phosphatase 85 (38-126) U/L Serum Total Protein 7.8 (6.3-8.2) g/dL Albumin 4.7 (3.5-5.0) g/dL Amylase 67 (30-110) U/L Lipase 54 (23-300) U/L Urine Color Yellow (Yellow) Urine Appearance Clear (Clear) Urine pH 6.0 (4.6-8.0) Ur Specific Runnells >=1.030 A (1.005-1.030) Urine Protein Negative (Negative) Urine Glucose (UA) Negative (Negative) mg/dL Urine Ketones Trace A (Negative) Urine Blood Negative (Negative) Urine Nitrite Negative (Negative) Urine Bilirubin Negative (Negative) Urine Urobilinogen 0.2 (0.2) mg/dL Ur Leukocyte Esterase Negative (Negative) U Hyaline Cast (Auto) NONE SEEN (0-2) /LPF Urine Microscopic RBC 0-2 (0-5) /HPF Urine Microscopic WBC 0-2 (0-5) /HPF Ur Epithelial Cells None Seen (None Seen) /HPF Urine Bacteria None Seen (None Seen) /HPF Urine Culture Reflexed NO (NO) 01/05/23 Range/Units 08:40 WBC 8.7 (4.0-10.5) x10^3/uL RBC 5.07 (4.1-5.6) x10^6/uL Hgb 16.1 (12.5-18.0) g/dL Hct 48.3 (42-50) % MCV 95.3 (78-100) fL MCH 31.8 (26-32) pg MCHC 33.3 (32-36) g/dL RDW 13.6 (11.5-14.0) % Plt Count 256 (150-450) x10^3/uL MPV 9.9 (7.5-11.0) fL Gran % 60.3 (36.0-66.0) % Immature Gran % (Auto) 0.2 (0.00-0.4) % Nucleat RBC Rel Count 0.0 (0.00-0.1) % Eos # (Auto) 0.15 (0-0.5) x10^3/uL Immature Gran # (Auto) 0.02 (0.00-0.03) x10^3u/L Absolute Lymphs (auto) 2.56 (1.0-4.6) x10^3/uL Absolute Monos (auto) 0.69 (0.0-1.3) x10^3/uL Absolute Nucleated RBC 0.00 (0.00-0.01) x10^3u/L Lymphocytes % 29.4 (24.0-44.0) % Monocytes % 7.9 (0.0-12.0) % Eosinophils % 1.7 (0.00-5.0) % Basophils % 0.5 (0.0-0.4) % Absolute Granulocytes 5.24 (1.4-6.9) x10^3/uL Basophils # 0.04 (0-0.4) x10^3/uL Sodium (137-145) mmol/L Potassium (3.5-5.1) mmol/L Chloride (98-107) mmol/L Carbon Dioxide (22-30) mmol/L Anion Gap (5-15) MEQ/L BUN (9-20) mg/dL Creatinine (0.66-1.25) mg/dL Estimated GFR ML/MIN Glucose (74-106) mg/dL Lactic Acid (0.4-2.0) Calcium (8.4-10.2) mg/dL Total Bilirubin (0.2-1.3) mg/dL AST (17-59) U/L ALT (0-50) U/L Alkaline Phosphatase (38-126) U/L Serum Total Protein (6.3-8.2) g/dL Albumin (3.5-5.0) g/dL Amylase (30-110) U/L Lipase (23-300) U/L Urine Color (Yellow) Urine Appearance (Clear) Urine pH (4.6-8.0) Ur Specific Runnells (1.005-1.030) Urine Protein (Negative) Urine Glucose (UA) (Negative) mg/dL Urine Ketones (Negative) Urine Blood (Negative) Urine Nitrite (Negative) Urine Bilirubin (Negative) Urine Urobilinogen (0.2) mg/dL Ur Leukocyte Esterase (Negative) U Hyaline Cast (Auto) (0-2) /LPF Urine Microscopic RBC (0-5) /HPF Urine Microscopic WBC (0-5) /HPF Ur Epithelial Cells (None Seen) /HPF Urine Bacteria (None Seen) /HPF Urine Culture Reflexed (NO) - Progress Progress: improved Medical Desision Making - Diagnostic Testing Diagnostic test were ordered, analyzed, and reviewed by me: Yes Radiological Interpretation: Reviewed by me - Risk of complications The pt has a mod risk of morbidity or mortality based on: Need for prescription drug management - Departure Departure Disposition: Home Clinical Impression: Left lower quadrant abdominal pain Condition: Stable Critical Care Time: No Referrals: JAVI BEJARANO [Primary Care Provider] - Follow up/PCP as directed Instructions: Severe Abdominal Pain, Adult (DC) Prescriptions: Amox Tr/Potass Clav. 875 mg [Augmentin 875-125 Tablet] 875 mg PO BID 10 Days #20 tablet Metronidazole 500 mg [Flagyl 500 MG] 500 mg PO TID #21 tablet
[2023-01-05] MEDS ORDERED: Unasyn 3 GM Vial*** 3 G in Sodium Chloride 0.9% 100 ML IV ONE (10:14)
[2023-01-05] MEDS ORDERED: FLAGYL 500 MG IVPB 500 MG/100 ML BAG IV STA (10:15)
--- NOTE | 2023-01-05 10:20 | XRAY ---
Indication: Lower abdomen pain. Diverticulitis. Multiple contiguous images obtained through the abdomen and pelvis using 80 cc Isovue 370 contrast. Comparison: December 13 and December 18, 2022. Lung bases again demonstrates minimal bibasilar subsegmental atelectasis. Heart not enlarged. Noncontrasted stomach and bowel loops are nonobstructed again with normal appendix and mild scattered colonic diverticulosis. Previous sigmoid diverticulitis has resolved. No free fluid/air. Again incidental mild fatty liver with incidental Nohemy's lobe and a few bilateral renal cysts. Remaining liver, gallbladder, pancreas, spleen, adrenal glands, kidneys, ureters, bladder, and aorta are unremarkable. No pathologic retroperitoneal lymphadenopathy. Impression: Since the last 2 CT exams early in the month, sigmoid diverticulitis has resolved. Again chronic findings including fatty liver and renal cysts. No new/acute findings.
[2023-01-05] MEDS ORDERED: Unasyn 3 GM Vial ONE (10:21)
[2023-01-05] MEDS ORDERED: FLAGYL 500 MG IVPB 500 MG/100 ML BAG IV ONE (10:22)
[2023-01-05] MEDS ORDERED: Sodium Chloride 0.9% 100 ML ONE (10:22)
[2023-01-05 10:36] LABS: Appearance Clear (Clear); Bacteria None Seen /HPF (None Seen); Bilirubin Negative (Negative); Blood Negative (Negative); Epithelial Cells None Seen /HPF (None Seen); Glucose, Urine Negative (Negative); Hyaline Casts NONE SEEN /LPF (0-2); Ketones Trace (Negative); Leukocyte Esterase Negative (Negative); Nitrite Negative (Negative); Protein,Urine Dip Negative (Negative); RBC 0-2 /HPF (0-5); Specific Gravity >=1.030 (1.005-1.030); Urobilinogen 0.2 mg/dL (0.2); WBC 0-2 /HPF (0-5)
[2023-01-05 10:37] LABS: ADD URINE CULTURE? NO (NO)
[2023-01-05 11:48] VITALS: BP 119/59; PULSE 52; O2SAT 95
== END 2023-01-05 11:52 | disposition home or self-care (01) ==
LOC: ED 08:17
DX: R10.32 Left lower quadrant pain (principal); R11.0 Nausea; R19.7 Diarrhea, unspecified; E78.5 Hyperlipidemia, unspecified; Z79.84 Long term (current) use of oral hypoglycemic drugs; Z79.899 Other long term (current) drug therapy
CPT/HCPCS: 36000; 36415; 74177; 80053; 81001; 82150; 83605; 83690; 85025; 96360; 96365; 96374; 96375; 96376; 99284; J0295; J1170; J2405

== ENCOUNTER 2023-03-18 02:34 | Emergency (ER) | payer MEDICARE ==
[2023-03-18 02:42] VITALS: PULSE 52
[2023-03-18] MEDS ORDERED: TORAdol 30 mg Injection IM ONE (03:58)
[2023-03-18] MEDS ORDERED: TORAdol 30 mg Injection ONE (04:01)
--- NOTE | 2023-03-18 04:03 | ERPHSYRPT ---
- History of Present Illness Time Seen by Provider: 03/18/23 04:06 Source: patient Exam Limitations: no limitations Patient Subjective Stated Complaint: fell outside in a low spot in the gravel Triage Nursing Assessment: pt ambulated into ER without diff. Pt alert and oriented x3, pleasant, cooperative. Pt c/o rt hand pain, along the lateral aspect and the pinky and ring finger also are painful. Pt fell outside about 18 days ago in a low spot. Radial pulse present. Physician History: Patient is a 57-year-old male presents to our ED for evaluation of pain to his right hand. Patient fell on a little spot of gravel approximately 18 days ago. Patient has not follow-up with his primary care physician. Patient wants an x- ray of his right hand as he has been experiencing pain for 18 days. Patient advises that he had a deformity of his fourth and fifth digit due to nerve injury from a laceration in the past. No other injuries reported. Pain described as an ache that is localized. No radiation. Pain worse with movement and palpation. Pain worse with palpation. Pain improved with rest. No BHT or LOC. No neck pain. Cervical spine cleared clinically. Patient voices no other complaints or concerns at this time. Portions of this note were created with voice recognition technology. There may be grammatical, spelling, punctuation or sound alike errors Occurred: other (18 days ago) Method of Injury: fell Quality: constant, aching Severity of Pain-Max: moderate Severity of Pain-Current: mild Extremities Pain Location: 4th finger: right, 5th finger: right (Palpation reproduces pain) Modifying Factors: Improves With: other Associated Symptoms: none Allergies/Adverse Reactions: No Known Drug Allergies Allergy (Verified 03/18/23 02:50) Home Medications: Levothyroxine Sodium 100 mcg PO DAILY 04/01/22 [History] Omeprazole 20 mg PO DAILY PRN PRN 04/01/22 [History] Oxycodone HCl/Acetaminophen [Oxycodone-Acetaminophen 5-325] 1 each PO TID PRN PRN 04/01/22 [History] Rosuvastatin Calcium 10 mg PO HS 04/01/22 [History] Testosterone Cypionate 1 ml IM UD 04/01/22 [History] Levocetirizine Dihydrochloride [Xyzal] 5 mg PO DAILY 09/19/22 [History] Sitagliptin Phosphate [Januvia] 100 mg PO DAILY 06/29/22 [History] hydrOXYzine HCL [Hydroxyzine HCl] 100 mg PO TID PRN 12/14/22 [History] Paliperidone [Invega] 6 mg PO DAILY 03/18/23 [History] Solriamfetol HCl [Sunosi] 150 mg PO DAILY PRN PRN 03/18/23 [History] Hx Tetanus, Diphtheria Vaccination/Date Given: Yes Hx Influenza Vaccination/Date Given: Yes Hx Pneumococcal Vaccination/Date Given: Yes Immunizations Up to Date: Yes Travel Risk - International Travel Have you traveled outside of the country in past 3 weeks: No - Coronavirus Screening Are you exhibiting any of the following symptoms?: No Close contact with a COVID-19 positive Pt in past 14-21 Days: No - Vaccine Status Have you recieved a Covid-19 vaccination: Yes [employer] [place]: [place] - Vaccination Dates Date of 2cond Vaccination (if applicable): . - Review of Systems Constitutional: No Symptoms, No Fever, No Chills Eyes: No Symptoms Ears, Nose, & Throat: No Symptoms Respiratory: No Symptoms, No Cough, No Dyspnea Cardiac: No Symptoms, No Chest Pain, No Edema, No Syncope Abdominal/Gastrointestinal: No Symptoms, No Abdominal Pain, No Nausea, No Vomiting, No Diarrhea Genitourinary Symptoms: No Symptoms, No Dysuria Musculoskeletal: No Symptoms, No Back Pain, No Neck Pain Skin: No Symptoms, No Rash Neurological: No Symptoms, No Dizziness, No Focal Weakness, No Sensory Changes Psychological: No Symptoms Endocrine: No Symptoms Hematologic/Lymphatic: No Symptoms Immunological/Allergic: No Symptoms All Other Systems: Reviewed and Negative - Past Medical History Pertinent Past Medical History: Yes Neurological History: No Pertinent History ENT History: No Pertinent History Cardiac History: High Cholesterol Respiratory History: No Pertinent History Endocrine Medical History: No Pertinent History Musculoskeletal History: Degenerative Disk Disease GI Medical History: Diverticulitis, Diverticulosis, GERD Psycho-Social History: Anxiety, Bipolar, Depression, Other Other Medical History: SCHIZOPHRENIA, ANXIETY/DEPRESSION, GERD. SX HX: RIGHT HAND SURGERY DUE TO TRAUMA. 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 - Past Surgical History Past Surgical History: Yes Other Surgical History: eye surgeryx2 hand surgery - Social History Smoking Status: Never smoker Exposure to second hand smoke: No Drug Use: none Patient Lives Alone: No - Nursing Vital Signs Nursing Vital Signs: Initial Vital Signs Temperature 97.7 F 03/18/23 02:41 Pulse Rate 52 L 03/18/23 02:41 Respiratory Rate 18 03/18/23 02:41 Blood Pressure 153/79 03/18/23 02:41 O2 Sat by Pulse Oximetry 98 03/18/23 02:41 Pain Scale Pain Intensity 7 - Physical Exam General Appearance: no apparent distress, alert Eyes, Ears, Nose, Throat Exam: moist mucous membranes Neck Exam: non-tender, full range of motion Cardiovascular/Respiratory Exam: normal breath sounds, regular rate/rhythm, no respiratory distress Abdominal Exam: non-tender, No guarding Back Exam: normal inspection, No vertebral tenderness Shoulder Exam: normal inspection, no evidence of injury, normal ROM Elbow/Forearm Exam: normal inspection, normal ROM Wrist Exam: normal inspection, non-tender, no evidence of injury, normal ROM Hand Exam: limited ROM (Limited range of motion of the fifth and fourth digit due to previous nerve injury from the laceration. However there is tenderness at the proximal fifth metacarpal as well as the fourth digit DIP joint. The extremity is neurovascular intact distally. Compartments are soft. Cap refill less than ) Neuro/Tendon Exam: normal sensation, normal motor functions Mental Status Exam: alert, oriented x 3, cooperative Skin Exam: normal color, warm, dry SpO2 Interpretation: normal SpO2: 98 O2 Delivery: Room Air - Course Nursing assessment & vital signs reviewed: Yes - Radiology Exams Hand X-ray Interpretation: Interpreted by me (Osteopenia, no fracture dislocations.) Ordered Tests: Active Orders 24 hr Category Date Time Status HAND (MINIMUM 3 VIEWS) Stat Exams 03/18/23 02:52 Taken - Progress Progress: improved Progress Note: Patient is a 57-year-old male presents to our ED for evaluation of hand pain x18 days. Pain started after a fall. Patient has not followed up with his primary care doctor. Patient was in our ED with his significant other and decided to get his hand checked out while he was here. Patient advises that he has a flexion deformity of his fifth and fourth digit due to nerve injury sometime ago. Patient has pain specifically at the proximal fifth metacarpal and the DIP of the fourth digit right hand. Overlying soft tissue intact. Hand neurovascular intact distally. X-rays is limited due to the deformity of his digits causing the observed bones to overlap on the x-ray images. However no obvious fracture dislocation observed. Formal read pending. Patient is aware that our interpretation of the x-ray this morning is preliminary and formal read is pending. Patient referred to orthopedic clinic for follow-up. Patient received a IM dose of Toradol for pain control. Patient voices no other complaints or concerns at this time. Will discharge home. Patient agrees to follow-up in the orthopedic clinic tomorrow morning for further evaluation and treatment. Portions of this note were created with voice recognition technology. There may be grammatical, spelling, punctuation or sound alike errors Complexity of problem addressed is low acute uncomplicated Complex of data reviewed and analyzed is moderate. Dr. Mcbride independently reviewed and analyzed the x-ray of the involved hand. No fracture dislocations observed. Formal read pending Risk of complication and or risk of morbidity/mortality of patient management is moderate. Patient received IM dose of Toradol for pain control. We will discharge home. No social determinants of health present to impede follow-up. Time spent to discharge patient is approximately 10 minutes. Vital stable. Patient voices no other complaints or concerns at this time. Extremity neurovascular intact distally. Portions of this note were created with voice recognition technology. There may be grammatical, spelling, punctuation or sound alike errors 03/18/23 04:09 Counseled pt/family regarding: diagnosis, need for follow-up, rad results - Departure Departure Disposition: Home Clinical Impression: Fall, Hand pain, right Condition: Stable Critical Care Time: No Referrals: JAVI BEJARANO [Primary Care Provider] - Follow up/PCP as directed Additional Instructions: Discharge/Care Plan HUGOLARSARMANI GRIFFITH was seen on 03/18/23 in the Emergency Room. The patient was counseled regarding Diagnosis,Lab results, Imaging studies, need for follow up and when to return to the Emergency Room. Prescriptions given: Discharge Note I have spoken with the patient and/or caregivers. I have explained the patient's condition, diagnosis and treatment plan based on the information available to me at this time. I have answered the patient's and/or caregiver's questions and addressed any concerns. The patient and/or caregivers have as good understanding of the patient's diagnosis, condition and treatment plan as can be expected at this point. The vital signs have been stable. The patient's condition is stable and appropriate for discharge from the emergency department. The patient will pursue further outpatient evaluation with the primary care physician or other designated or consulting physician as outlined in the discharge instructions. The patient and/or caregivers are agreeable to this plan of care and follow-up instructions have been explained in detail. The patient and/or caregivers have received these instruction. The patient/and or caregivers are aware that any significant change in condition or worsening of symptoms should prompt an immediate return to this or the closest emergency department or call 911.
[2023-03-18 04:08] VITALS: BP 131/73
[2023-03-18 04:09] VITALS: O2SAT 98
--- NOTE | 2023-03-18 08:42 | XRAY ---
Indication: Pain. Comparison: None 3 view right hand demonstrates minimal/mild degenerative changes all IP joints. Query old distal 5th metacarpal fracture with chronic flexed 5th finger. No other bony, articular, or soft tissue abnormalities.
== END 2023-03-18 04:19 | disposition home or self-care (01) ==
LOC: ED 02:34
DX: M79.641 Pain in right hand (principal); W19.XXXA Unspecified fall, initial encounter; E78.5 Hyperlipidemia, unspecified; Z79.891 Long term (current) use of opiate analgesic; Z79.84 Long term (current) use of oral hypoglycemic drugs; Z79.899 Other long term (current) drug therapy
CPT/HCPCS: 73130; 96372; 99283; J1885

== ENCOUNTER 2023-07-27 22:24 | Observation (INO) | payer MEDICARE ==
[2023-07-27] MEDS ORDERED: BABY ASPIRIN 81 MG CHEW ONE (22:32)
[2023-07-27] MEDS ORDERED: BABY ASPIRIN 81 MG CHEW PO ONE (22:39)
[2023-07-27 22:58] LABS: Absolute Neutrophil Ct (ANC) 6.98 x10^3/uL (1.4-6.9); BASOPHIL % 0.6 % (0.0-0.4); Basophil (Absolute #) 0.06 x10^3/uL (0-0.4); Eosinophil % 1.1 % (0.00-5.0); Eosinophil (Absolute #) 0.11 x10^3/uL (0-0.5); Hematocrit 52.6 % (42-50); Hemoglobin 17.9 g/dL (12.5-18.0); IMMATURE GRAN # 0.03 x10^3u/L (0.00-0.03); IMMATURE GRAN % 0.3 % (0.00-0.4); Lymphocyte (Absolute #) 2.26 x10^3/uL (1.0-4.6); Lymphocytes % 22.2 % (24.0-44.0); Mean Cell Volume 95.5 fL (78-100); Mean Corpuscular Hemoglobin 32.5 pg (26-32); Mean Platelet Volume 10.4 fL (7.5-11.0); Monocyte (Absolute #) 0.76 x10^3/uL (0.0-1.3); Monocytes % 7.5 % (0.0-12.0); Neutrophil % 68.3 % (36.0-66.0); Platelet Count 284 x10^3/uL (150-450); Red Blood Count 5.51 x10^6/uL (4.1-5.6); White Blood Count 10.2 x10^3/uL (4.0-10.5)
--- NOTE | 2023-07-27 23:05 | ERPHSYRPT ---
- History of Present Illness Time Seen by Provider: 07/27/23 22:40 Historian: patient Exam Limitations: no limitations Patient Subjective Stated Complaint: Pt reports he was sitting at home this evening when he started experiencing shortness of breath, chest pressure and p ain and dizziness. Pt reports he thought it might be his anxiety so took prescription hydroxyzine and went to sleep, when he woke up symptoms were still there. Denies any aspirin in the last 24 hours. Denies any previous heart problems. Triage Nursing Assessment: Pt alert and oriented x3. No apparent respiratory distress. Ambulated to ED cot without difficulty. Skin w/p/d. S1 and S2 auscultated. No lower extremity edema noted. Physician History: Patient is a 57-year-old male with history of diabetes presents to our ED for evaluation of chest pain shortness of breath and dizziness that started prior to arrival. Patient states he thought it was anxiety. He is self medicated with hydroxyzine. Patient observed the symptoms did not resolve and they have not come to our ED. Patient's chest pain is described as "a elephant sitting on my chest". No associated nausea vomiting or diaphoresis. Symptoms are constant but somewhat improved. No other complaints. Portions of this note were created with voice recognition technology. There may be grammatical, spelling, punctuation or sound alike errors Timing/Duration: today Activities at Onset: none Quality: aching Location: substernal Chest Pain Radiation: no radiation Severity of Pain-Max: moderate Severity of Pain-Current: mild Modifying Factors: Improves With: nothing Associated Symptoms: shortness of breath, dizziness Prior Chest Pain/Cardiac Workup: no prior chest pain Nitro Today/Relief: no nitro taken today Aspirin Treatment Today: no aspirin today Allergies/Adverse Reactions: No Known Drug Allergies Allergy (Verified 07/27/23 22:26) Home Medications: Levothyroxine Sodium 100 mcg PO DAILY 04/01/22 [History] Omeprazole 20 mg PO DAILY PRN PRN 04/01/22 [History] Oxycodone HCl/Acetaminophen [Oxycodone-Acetaminophen 5-325] 1 each PO TID PRN PRN 04/01/22 [History] Rosuvastatin Calcium 10 mg PO HS 04/01/22 [History] Testosterone Cypionate 1 ml IM UD 04/01/22 [History] Levocetirizine Dihydrochloride [Xyzal] 5 mg PO DAILY 06/29/22 [History] Sitagliptin Phosphate [Januvia] 100 mg PO DAILY 06/29/22 [History] hydrOXYzine HCL [Hydroxyzine HCl] 100 mg PO TID PRN PRN 12/14/22 [History] Paliperidone [Invega] 6 mg PO DAILY 03/18/23 [History] Hx Tetanus, Diphtheria Vaccination/Date Given: Yes Hx Influenza Vaccination/Date Given: Yes (2021) Hx Pneumococcal Vaccination/Date Given: Yes Travel Risk - International Travel Have you traveled outside of the country in past 3 weeks: No - Coronavirus Screening Are you exhibiting any of the following symptoms?: No Close contact with a COVID-19 positive Pt in past 14-21 Days: No - Vaccine Status Have you recieved a Covid-19 vaccination: Yes Tool Tender: Moderna - Vaccination Dates Date of 2cond Vaccination (if applicable): . - Review of Systems Constitutional: No Symptoms, No Fever, No Chills Eyes: No Symptoms Ears, Nose, & Throat: No Symptoms Respiratory: No Symptoms, No Cough, No Dyspnea Cardiac: No Symptoms, No Chest Pain, No Edema, No Syncope Abdominal/Gastrointestinal: No Symptoms, No Abdominal Pain, No Nausea, No Vomiting, No Diarrhea Genitourinary Symptoms: No Symptoms, No Dysuria Musculoskeletal: No Symptoms, No Back Pain, No Neck Pain Skin: No Symptoms, No Rash Neurological: No Symptoms, No Dizziness, No Focal Weakness, No Sensory Changes Psychological: No Symptoms Endocrine: No Symptoms Hematologic/Lymphatic: No Symptoms Immunological/Allergic: No Symptoms All Other Systems: Reviewed and Negative - Past Medical History Pertinent Past Medical History: Yes Neurological History: No Pertinent History ENT History: No Pertinent History Cardiac History: High Cholesterol Respiratory History: No Pertinent History Endocrine Medical History: No Pertinent History Musculoskeletal History: Degenerative Disk Disease GI Medical History: Diverticulitis, Diverticulosis, GERD Psycho-Social History: Anxiety, Bipolar, Depression, Other Other Medical History: SCHIZOPHRENIA, ANXIETY/DEPRESSION, GERD. SX HX: RIGHT HAND SURGERY DUE TO TRAUMA. 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 - Past Surgical History Past Surgical History: Yes Other Surgical History: eye surgeryx2 hand surgery - Social History Smoking Status: Never smoker Exposure to second hand smoke: No Drug Use: none Patient Lives Alone: No - Nursing Vital Signs Nursing Vital Signs: Initial Vital Signs Temperature 97 F 07/27/23 22:25 Pulse Rate 108 H 07/27/23 22:25 Respiratory Rate 17 07/27/23 22:25 Blood Pressure 117/89 07/27/23 22:25 O2 Sat by Pulse Oximetry 99 07/27/23 22:25 Pain Scale Pain Intensity 5 - Physical Exam General Appearance: no apparent distress, alert Eye Exam: PERRL/EOMI, eyes nml inspection Ears, Nose, Throat Exam: normal ENT inspection, moist mucous membranes Neck Exam: normal inspection, non-tender, supple, full range of motion Respiratory Exam: normal breath sounds, lungs clear, No respiratory distress Cardiovascular Exam: regular rate/rhythm, normal heart sounds Gastrointestinal/Abdomen Exam: soft, No tenderness, No mass Back Exam: normal inspection, No CVA tenderness, No vertebral tenderness Extremity Exam: normal inspection, normal range of motion Neurologic Exam: alert, oriented x 3, cooperative, normal mood/affect, sensation nml, No motor deficits Skin Exam: normal color, warm, dry SpO2 Interpretation: normal SpO2: 99 O2 Delivery: Room Air - Course Nursing assessment & vital signs reviewed: Yes EKG Interpreted by Me: RATE (113, atrial flutter), NORMAL AXIS, NORMAL INTERVALS, NORMAL QRS - Radiology Exams Chest X-ray Interpretation: Interpreted by me (Nonacute chest) Ordered Tests: Active Orders 24 hr Category Date Time Status Marketing Performance Analyst STAT Care 07/27/23 22:46 Active EKG-ER Only STAT Care 07/27/23 22:43 Active IV Insertion STAT Care 07/27/23 22:43 Active Pulse Oximetry (ED) STAT Care 07/27/23 22:43 Active CHEST 1 VIEW (PORTABLE) Stat Exams 07/27/23 23:35 Taken CBC W DIFF Stat Lab 07/27/23 22:50 Completed CMP Stat Lab 07/27/23 22:50 Completed D-DIMER QUANTITATIVE Stat Lab 07/27/23 22:50 Completed TROPONIN Q4H Lab 07/27/23 22:50 Completed TROPONIN Q4H Lab 07/28/23 03:29 Received TROPONIN Q4H Lab 07/28/23 07:00 Ordered Medication Summary Discontinued Medications Generic Name Dose Route Start Last Admin Trade Name Freq PRN Reason Stop Dose Admin Aspirin Confirm 07/27/23 22:32 Aspirin 81 Mg Tab.Chew Administered 07/27/23 22:33 Dose 324 mg .ROUTE .STK-MED ONE Aspirin 324 mg 07/27/23 22:39 07/27/23 22:39 Aspirin 81 Mg Tab.Chew PO 07/27/23 22:40 324 mg STAT ONE Administration Nitroglycerin 1 gm 07/27/23 23:31 07/27/23 23:38 Nitroglycerin 1 Gm Packet TOP 07/27/23 23:32 1 gm STAT ONE Administration Nitroglycerin Confirm 07/27/23 23:37 Nitroglycerin 1 Gm Packet Administered 07/27/23 23:38 Dose 1 gm .ROUTE .STK-MED ONE Lab/Rad Data: Laboratory Result Diagrams 07/27/23 22:50 07/27/23 22:50 Laboratory Results 07/27/23 07/27/23 07/27/23 Range/Units 22:50 22:50 22:50 WBC (4.0-10.5) x10^3/uL RBC (4.1-5.6) x10^6/uL Hgb (12.5-18.0) g/dL Hct (42-50) % MCV (78-100) fL MCH (26-32) pg MCHC (32-36) g/dL RDW (11.5-14.0) % Plt Count (150-450) x10^3/uL MPV (7.5-11.0) fL Gran % (36.0-66.0) % Immature Gran % (Auto) (0.00-0.4) % Nucleat RBC Rel Count (0.00-0.1) % Eos # (Auto) (0-0.5) x10^3/uL Immature Gran # (Auto) (0.00-0.03) x10^3u/L Absolute Lymphs (auto) (1.0-4.6) x10^3/uL Absolute Monos (auto) (0.0-1.3) x10^3/uL Absolute Nucleated RBC (0.00-0.01) x10^3u/L Lymphocytes % (24.0-44.0) % Monocytes % (0.0-12.0) % Eosinophils % (0.00-5.0) % Basophils % (0.0-0.4) % Absolute Granulocytes (1.4-6.9) x10^3/uL Basophils # (0-0.4) x10^3/uL D-Dimer < 0.19 (0.0-0.50) mg/L Sodium 136 L (137-145) mmol/L Potassium 3.9 (3.5-5.1) mmol/L Chloride 107 (98-107) mmol/L Carbon Dioxide 19 L (22-30) mmol/L Anion Gap 14.7 (5-15) MEQ/L BUN 14 (9-20) mg/dL Creatinine 0.99 (0.66-1.25) mg/dL Estimated GFR > 60.0 ML/MIN Glucose 103 (74-106) mg/dL Calcium 9.1 (8.4-10.2) mg/dL Total Bilirubin 1.30 (0.2-1.3) mg/dL AST 27 (17-59) U/L ALT 50 (0-50) U/L Alkaline Phosphatase 63 (38-126) U/L Troponin I < 0.012 (0.000-0.034) ng/mL Serum Total Protein 7.5 (6.3-8.2) g/dL Albumin 4.7 (3.5-5.0) g/dL 07/27/23 Range/Units 22:50 WBC 10.2 (4.0-10.5) x10^3/uL RBC 5.51 (4.1-5.6) x10^6/uL Hgb 17.9 (12.5-18.0) g/dL Hct 52.6 H (42-50) % MCV 95.5 (78-100) fL MCH 32.5 H (26-32) pg MCHC 34.0 (32-36) g/dL RDW 13.0 (11.5-14.0) % Plt Count 284 (150-450) x10^3/uL MPV 10.4 (7.5-11.0) fL Gran % 68.3 H (36.0-66.0) % Immature Gran % (Auto) 0.3 (0.00-0.4) % Nucleat RBC Rel Count 0.0 (0.00-0.1) % Eos # (Auto) 0.11 (0-0.5) x10^3/uL Immature Gran # (Auto) 0.03 (0.00-0.03) x10^3u/L Absolute Lymphs (auto) 2.26 (1.0-4.6) x10^3/uL Absolute Monos (auto) 0.76 (0.0-1.3) x10^3/uL Absolute Nucleated RBC 0.00 (0.00-0.01) x10^3u/L Lymphocytes % 22.2 L (24.0-44.0) % Monocytes % 7.5 (0.0-12.0) % Eosinophils % 1.1 (0.00-5.0) % Basophils % 0.6 (0.0-0.4) % Absolute Granulocytes 6.98 H (1.4-6.9) x10^3/uL Basophils # 0.06 (0-0.4) x10^3/uL D-Dimer (0.0-0.50) mg/L Sodium (137-145) mmol/L Potassium (3.5-5.1) mmol/L Chloride (98-107) mmol/L Carbon Dioxide (22-30) mmol/L Anion Gap (5-15) MEQ/L BUN (9-20) mg/dL Creatinine (0.66-1.25) mg/dL Estimated GFR ML/MIN Glucose (74-106) mg/dL Calcium (8.4-10.2) mg/dL Total Bilirubin (0.2-1.3) mg/dL AST (17-59) U/L ALT (0-50) U/L Alkaline Phosphatase (38-126) U/L Troponin I (0.000-0.034) ng/mL Serum Total Protein (6.3-8.2) g/dL Albumin (3.5-5.0) g/dL - Progress Progress: improved Air Movement: good Progress Note: Heart score is 4 07/27/23 23:38 Returned call from hospitalist at 3:[address] Gomes excepts admission to observation. Patient is a 57-year-old male presents to emergency department for evaluation of chest pain. Patient had a resting tachycardia during our exam. Patient appears very anxious. D-dimer negative. Troponin negative. CBC CMP essentially nonremarkable. Heart score is 4. Chest x-ray negative for acute pathology. Patient continues to experience ophthalmology. Aspirin and Nitropa gildardo administered. In light of patient's ongoing symptomology and heart score patient will be admitted for cardiac rule out. Plan of care discussed with patient. He agrees to admission to [facility] for further evaluation and treatment. Portions of this note were created with voice recognition technology. There may be grammatical, spelling, punctuation or sound alike errors Complexity of problems addressed is moderate acute complicated No critical care time Complexity of data reviewed and analyzed is moderate. Test ordered test reviewed. Results analyzed. Clinical correlation made between findings and history and physical examination. Risk complication and or risk of morbidity/mortality of patient management is high. Patient will require hospitalization for further evaluation and treatment. Vital stable. Time spent to admit patient is approximately 15 minutes. Plan of care established for shared decision making. 07/28/23 03:55 Blood Culture(s) Obtained: No Antibiotics given: No Discussed with DrHeide: Leah Will see patient in: hospital (observation) Counseled pt/family regarding: lab results, diagnosis, rad results - Departure Departure Disposition: Observation Clinical Impression: Chest pain, ACS (acute coronary syndrome) Condition: Stable Critical Care Time: No Referrals: JAVI BEJARANO [Primary Care Provider] - Follow up/PCP as directed
[2023-07-27 23:11] LABS: ALBUMIN 4.7 g/dL (3.5-5.0); ALKALINE PHOSPHATASE 63 U/L (38-126); ANION GAP 14.7 MEQ/L (5-15); BLOOD UREA NITROGEN 14 mg/dL (9-20); CHLORIDE 107 mmol/L (98-107); Calcium 9.1 mg/dL (8.4-10.2); Carbon Dioxide 19 mmol/L (22-30); Creatinine 1 0.99 mg/dL (0.66-1.25); EST GLOMERULAR FILTRATION RATE > 60.0 ML/MIN; Glucose 103 mg/dL (74-106); Potassium 3.9 mmol/L (3.5-5.1); SGOT/AST 27 U/L (17-59); SGPT/ALT 50 U/L (0-50); SODIUM 136 mmol/L (137-145); Total Protein 7.5 g/dL (6.3-8.2)
[2023-07-27] MEDS ORDERED: NITRO-BID 2% UD PACKETS TOP ONE (23:31)
[2023-07-27] MEDS ORDERED: NITRO-BID 2% UD PACKETS ONE (23:37)
--- NOTE | 2023-07-28 05:56 | PCM.HP ---
History of Present Illness - Chief Complaint Chief Complaint: Chest pain, acute coronary syndrome History of Present Illness: is a 57 year old male. Medications & Allergies Home Medications: Home Medication List Levothyroxine Sodium 100 mcg PO DAILY 04/01/22 [History Confirmed 07/28/23] Omeprazole 20 mg PO DAILY PRN PRN 04/01/22 [History Confirmed 07/27/23] Oxycodone HCl/Acetaminophen [Oxycodone-Acetaminophen 5-325] 1 each PO TID PRN PRN 04/01/22 [History Confirmed 07/27/23] Rosuvastatin Calcium 10 mg PO HS 04/01/22 [History Confirmed 07/28/23] Testosterone Cypionate 1 ml IM UD 04/01/22 [History Confirmed 07/28/23] Sitagliptin Phosphate [Januvia] 100 mg PO DAILY 06/29/22 [History Confirmed 07/28/23] hydrOXYzine HCL [Hydroxyzine HCl] 100 mg PO TID PRN PRN 12/14/22 [History Confirmed 07/27/23] Allergies/Adverse Reactions: Allergies Allergy/AdvReac Type Severity Reaction Status Date / Time No Known Drug Allergies Allergy Verified 07/27/23 22:26 - Past Medical History Past Medical History: Yes Neurological History: No Pertinent History ENT History: No Pertinent History Cardiac History: High Cholesterol Respiratory History: No Pertinent History Endocrine Medical History: Hypothyroidism Musculoskelatal History: Degenerative Disk Disease GI Medical History: Diverticulitis, Diverticulosis, GERD Pyscho-Social History: Anxiety, Bipolar, Depression, Other Male Reproductive Disorders: No Pertinent History Comment: SCHIZOPHRENIA, ANXIETY/DEPRESSION, GERD. SX HX: RIGHT HAND SURGERY DUE TO TRAUMA. 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 - Past Surgical History Past Surgical History: Yes Neuro Surgical History: No Pertinent History Cardiac History: No Pertinent History Respiratory Surgery: No Pertinent History GI Surgical History: No Pertinent History Genitourinary Surgical Hx: No Pertinent History Musculskeletal Surgical Hx: No Pertinent History Male Surgical History: No Pertinent History Other Surgical History: eye surgeryx2 hand surgery x2 - Social History Smoking Status: Never smoker Exposure to second hand smoke: No Alcohol: Rarely Drug Use: none - Physical Exam Vital Signs: Vital Signs - 24 hr Temp Pulse Pulse Resp BP BP Pulse Ox 07/28/23 05:20 99 07/28/23 04:29 98.0 F 72 19 121/81 98 07/28/23 04:17 139 H 16 82/60 95 07/28/23 04:15 140 H 18 82/67 96 07/28/23 04:00 99 07/28/23 03:01 137 H 14 94/70 96 07/28/23 02:48 114 H 16 113/67 98 07/28/23 02:30 86 18 95/60 94 L 07/28/23 02:05 127 H 19 90/72 95 07/28/23 02:01 137 H 20 81/70 95 07/28/23 02:00 139 H 18 87/56 93 L 07/28/23 01:30 138 H 18 96/70 95 07/28/23 01:00 138 H 15 112/90 95 07/28/23 00:31 112 H 14 103/80 95 07/28/23 00:15 107 H 14 119/98 93 L 07/28/23 00:00 134 H 15 136/87 95 07/27/23 23:30 102 H 15 113/65 93 L 07/27/23 23:13 114 H 19 117/74 98 07/27/23 23:00 101 H 15 86/63 93 L 07/27/23 22:43 97 07/27/23 22:42 119 H 16 105/76 98 07/27/23 22:27 126 H 29 H 117/89 95 07/27/23 22:25 97 F 108 H 120 H 17 117/89 99 Results - Labs Lab/Micro Results: Lab Results-Last 24 Hours 07/27/23 07/27/23 07/27/23 Range/Units 22:50 22:50 22:50 WBC 10.2 (4.0-10.5) x10^3/uL RBC 5.51 (4.1-5.6) x10^6/uL Hgb 17.9 (12.5-18.0) g/dL Hct 52.6 H (42-50) % MCV 95.5 (78-100) fL MCH 32.5 H (26-32) pg MCHC 34.0 (32-36) g/dL RDW 13.0 (11.5-14.0) % Plt Count 284 (150-450) x10^3/uL MPV 10.4 (7.5-11.0) fL Gran % 68.3 H (36.0-66.0) % Immature Gran % (Auto) 0.3 (0.00-0.4) % Nucleat RBC Rel Count 0.0 (0.00-0.1) % Eos # (Auto) 0.11 (0-0.5) x10^3/uL Immature Gran # (Auto) 0.03 (0.00-0.03) x10^3u/L Absolute Lymphs (auto) 2.26 (1.0-4.6) x10^3/uL Absolute Monos (auto) 0.76 (0.0-1.3) x10^3/uL Absolute Nucleated RBC 0.00 (0.00-0.01) x10^3u/L Lymphocytes % 22.2 L (24.0-44.0) % Monocytes % 7.5 (0.0-12.0) % Eosinophils % 1.1 (0.00-5.0) % Basophils % 0.6 (0.0-0.4) % Absolute Granulocytes 6.98 H (1.4-6.9) x10^3/uL Basophils # 0.06 (0-0.4) x10^3/uL D-Dimer < 0.19 (0.0-0.50) mg/L Sodium 136 L (137-145) mmol/L Potassium 3.9 (3.5-5.1) mmol/L Chloride 107 (98-107) mmol/L Carbon Dioxide 19 L (22-30) mmol/L Anion Gap 14.7 (5-15) MEQ/L BUN 14 (9-20) mg/dL Creatinine 0.99 (0.66-1.25) mg/dL Estimated GFR > 60.0 ML/MIN Glucose 103 (74-106) mg/dL Calcium 9.1 (8.4-10.2) mg/dL Total Bilirubin 1.30 (0.2-1.3) mg/dL AST 27 (17-59) U/L ALT 50 (0-50) U/L Alkaline Phosphatase 63 (38-126) U/L Troponin I (0.000-0.034) ng/mL Serum Total Protein 7.5 (6.3-8.2) g/dL Albumin 4.7 (3.5-5.0) g/dL 07/27/23 07/28/23 Range/Units 22:50 03:29 WBC (4.0-10.5) x10^3/uL RBC (4.1-5.6) x10^6/uL Hgb (12.5-18.0) g/dL Hct (42-50) % MCV (78-100) fL MCH (26-32) pg MCHC (32-36) g/dL RDW (11.5-14.0) % Plt Count (150-450) x10^3/uL MPV (7.5-11.0) fL Gran % (36.0-66.0) % Immature Gran % (Auto) (0.00-0.4) % Nucleat RBC Rel Count (0.00-0.1) % Eos # (Auto) (0-0.5) x10^3/uL Immature Gran # (Auto) (0.00-0.03) x10^3u/L Absolute Lymphs (auto) (1.0-4.6) x10^3/uL Absolute Monos (auto) (0.0-1.3) x10^3/uL Absolute Nucleated RBC (0.00-0.01) x10^3u/L Lymphocytes % (24.0-44.0) % Monocytes % (0.0-12.0) % Eosinophils % (0.00-5.0) % Basophils % (0.0-0.4) % Absolute Granulocytes (1.4-6.9) x10^3/uL Basophils # (0-0.4) x10^3/uL D-Dimer (0.0-0.50) mg/L Sodium (137-145) mmol/L Potassium (3.5-5.1) mmol/L Chloride (98-107) mmol/L Carbon Dioxide (22-30) mmol/L Anion Gap (5-15) MEQ/L BUN (9-20) mg/dL Creatinine (0.66-1.25) mg/dL Estimated GFR ML/MIN Glucose (74-106) mg/dL Calcium (8.4-10.2) mg/dL Total Bilirubin (0.2-1.3) mg/dL AST (17-59) U/L ALT (0-50) U/L Alkaline Phosphatase (38-126) U/L Troponin I < 0.012 < 0.012 (0.000-0.034) ng/mL Serum Total Protein (6.3-8.2) g/dL Albumin (3.5-5.0) g/dL - Radiology Impressions Radiology Exams & Impressions: Radiology Procedures Category Date Time Status CHEST 1 VIEW (PORTABLE) Stat Exams 07/27/23 23:35 Taken Assessment/Plan (1) Chest pain Current Visit: Yes Status: Acute Assessment & Plan: Admit OBs c tele 2 gm Na diet consult cardiology CXR demonstrates start ASA and NTG sublingual PRN serial troponin and ECG Echo in am CBC, CMP, Mg, Phos, lipid panel, HgbA1c in am continue appropriate baseline home medications DVT prophylaxis-Lovenox 40 mg SQ daily CP r/o - Typical , +/- syncope, diaphoresis, dyspnea - RFs: HTN, DM, HLD, Obesity, Smoking - Admit to tele, EKG q6h, Trop q6h, stress test ordered ACS - Vidya classification: exertional, L sided/sub-sternal, relieved with nitro - +/- syncope, diaphoresis, dyspnea - RFs: HTN, DM, HLD, Obesity, Smoking - EKG, trops x3, stress test, cath - ASA, statin, BB, ACEi; morphine, oxygen, nitrates, heparin - Plavix load 300 mg then 75 daily - Cardiology consult HFpEF - peripheral edema, orthopnea - Echo (date) showed: - Daily weights, strict I&Os - Lasix for fluid overload Sx + BNP >100-- Spironolactone (monitor K and renal fxn) New CHF cardiac orders: aspirin, 81 mg, Orally, Tab, Delayed Rel, Daily carvedilol, 3.125 mg, Orally, Tablet, BID empagliflozin, 10 mg, Orally, Tablet, Daily sacubitril-valsartan, 1 Tablet, Orally, Tablet, BID spironolactone, 12.5 mg, Orally, Tablet, Daily Code(s): R07.9 - CHEST PAIN, UNSPECIFIED (2) Anxiety Current Visit: No Status: Acute Code(s): F41.9 - ANXIETY DISORDER, UNSPECIFIED
[2023-07-28] MEDS ORDERED: NON-FORMULARY ITEM (Hydroxyzine Hcl [Hydroxyzine Hcl] 50 MG Tablet) PO PRN (06:04)
[2023-07-28] MEDS ORDERED: NON-FORMULARY ITEM (Omeprazole [Omeprazole] 20 MG Tablet.Dr) PO PRN (06:04)
[2023-07-28] MEDS ORDERED: PERCOCET TABLET 5/325MG PO PRN (06:04)
[2023-07-28 06:15] LABS: Hematocrit 51.5 % (42-50); Hemoglobin 17.3 g/dL (12.5-18.0); Mean Cell Volume 96.6 fL (78-100); Mean Corpuscular Hemoglobin 32.5 pg (26-32); Mean Corpuscular Hgb Concent. 33.6 g/dL (32-36); Mean Platelet Volume 9.9 fL (7.5-11.0); Platelet Count 267 x10^3/uL (150-450); Red Blood Count 5.33 x10^6/uL (4.1-5.6); Red Cell Distribution Width 13.2 % (11.5-14.0); White Blood Count 12.4 x10^3/uL (4.0-10.5)
--- NOTE | 2023-07-28 06:15 | PCM.HP ---
History of Present Illness - Chief Complaint Chief Complaint: Chest pain, acute coronary syndrome Date: 07/28/23 History of Present Illness: This is a 57-year-old male admitted for evaluation of chest pain. He has past medical history of diabetes, hypothyroid, schizophrenia/anxiety, chronic back pain. He presented to the ED tonight for evaluation of sudden onset shortness of breath and chest pressure. Pain is substernal and constant in nature. No exacerbating nor alleviating symptoms. On arrival to the ED he was afebrile, heart rate 108, blood pressure 117/89. Labs significant for WBC 10, platelets 284, D-dimer negative, troponin negative x2. Chest x-ray negative for acute pathology. In the ED he received aspirin and Nitro-Bid. He reports pain is still present and also is reporting pain in head, neck and low back. - Review of Systems Eyes: No Symptoms Ears, Nose, & Throat: No Symptoms Respiratory: No Symptoms Cardiac: Chest Pain Abdominal/Gastrointestinal: No Symptoms Genitourinary Symptoms: No Symptoms Musculoskeletal: No Symptoms Skin: No Symptoms Neurological: No Symptoms Medications & Allergies Home Medications: Home Medication List Levothyroxine Sodium 100 mcg PO DAILY 04/01/22 [History Confirmed 07/28/23] Omeprazole 20 mg PO DAILY PRN PRN 04/01/22 [History Confirmed 07/27/23] Oxycodone HCl/Acetaminophen [Oxycodone-Acetaminophen 5-325] 1 each PO TID PRN P RN 04/01/22 [History Confirmed 07/27/23] Rosuvastatin Calcium 10 mg PO HS 04/01/22 [History Confirmed 07/28/23] Testosterone Cypionate 1 ml IM UD 04/01/22 [History Confirmed 07/28/23] Sitagliptin Phosphate [Januvia] 100 mg PO DAILY 06/29/22 [History Confirmed 07/28/23] hydrOXYzine HCL [Hydroxyzine HCl] 100 mg PO TID PRN PRN 12/14/22 [History Confirmed 07/27/23] Allergies/Adverse Reactions: Allergies Allergy/AdvReac Type Severity Reaction Status Date / Time No Known Drug Allergies Allergy Verified 07/27/23 22:26 - Past Medical History Past Medical History: Yes Neurological History: No Pertinent History ENT History: No Pertinent History Cardiac History: High Cholesterol Respiratory History: No Pertinent History Endocrine Medical History: Hypothyroidism Musculoskelatal History: Degenerative Disk Disease GI Medical History: Diverticulitis, Diverticulosis, GERD Pyscho-Social History: Anxiety, Bipolar, Depression, Other Male Reproductive Disorders: No Pertinent History Comment: SCHIZOPHRENIA, ANXIETY/DEPRESSION, GERD. SX HX: RIGHT HAND SURGERY DUE TO TRAUMA. 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 - Past Surgical History Past Surgical History: Yes Neuro Surgical History: No Pertinent History Cardiac History: No Pertinent History Respiratory Surgery: No Pertinent History GI Surgical History: No Pertinent History Genitourinary Surgical Hx: No Pertinent History Musculskeletal Surgical Hx: No Pertinent History Male Surgical History: No Pertinent History Other Surgical History: eye surgeryx2 hand surgery x2 - Social History Smoking Status: Never smoker Exposure to second hand smoke: No Alcohol: Rarely Drug Use: none - Physical Exam Vital Signs: Vital Signs - 24 hr Temp Pulse Pulse Resp BP BP Pulse Ox 07/28/23 05:20 99 07/28/23 04:29 98.0 F 72 19 121/81 98 07/28/23 04:17 139 H 16 82/60 95 07/28/23 04:15 140 H 18 82/67 96 07/28/23 04:00 99 07/28/23 03:01 137 H 14 94/70 96 07/28/23 02:48 114 H 16 113/67 98 07/28/23 02:30 86 18 95/60 94 L 07/28/23 02:05 127 H 19 90/72 95 07/28/23 02:01 137 H 20 81/70 95 07/28/23 02:00 139 H 18 87/56 93 L 07/28/23 01:30 138 H 18 96/70 95 07/28/23 01:00 138 H 15 112/90 95 07/28/23 00:31 112 H 14 103/80 95 07/28/23 00:15 107 H 14 119/98 93 L 07/28/23 00:00 134 H 15 136/87 95 07/27/23 23:30 102 H 15 113/65 93 L 07/27/23 23:13 114 H 19 117/74 98 07/27/23 23:00 101 H 15 86/63 93 L 07/27/23 22:43 97 07/27/23 22:42 119 H 16 105/76 98 07/27/23 22:27 126 H 29 H 117/89 95 07/27/23 22:25 97 F 108 H 120 H 17 117/89 99 General Appearance: no apparent distress Neurologic Exam: alert, oriented x 3 Eye Exam: PERRL/EOMI Ears, Nose, Throat Exam: normal ENT inspection Cardiovascular Exam: regular rate/rhythm Gastrointestinal/Abdomen Exam: soft Extremity Exam: normal inspection Skin Exam: normal color Results - Labs Lab/Micro Results: Lab Results-Last 24 Hours 07/27/23 07/27/23 07/27/23 Range/Units 22:50 22:50 22:50 WBC 10.2 (4.0-10.5) x10^3/uL RBC 5.51 (4.1-5.6) x10^6/uL Hgb 17.9 (12.5-18.0) g/dL Hct 52.6 H (42-50) % MCV 95.5 (78-100) fL MCH 32.5 H (26-32) pg MCHC 34.0 (32-36) g/dL RDW 13.0 (11.5-14.0) % Plt Count 284 (150-450) x10^3/uL MPV 10.4 (7.5-11.0) fL Gran % 68.3 H (36.0-66.0) % Immature Gran % (Auto) 0.3 (0.00-0.4) % Nucleat RBC Rel Count 0.0 (0.00-0.1) % Eos # (Auto) 0.11 (0-0.5) x10^3/uL Immature Gran # (Auto) 0.03 (0.00-0.03) x10^3u/L Absolute Lymphs (auto) 2.26 (1.0-4.6) x10^3/uL Absolute Monos (auto) 0.76 (0.0-1.3) x10^3/uL Absolute Nucleated RBC 0.00 (0.00-0.01) x10^3u/L Lymphocytes % 22.2 L (24.0-44.0) % Monocytes % 7.5 (0.0-12.0) % Eosinophils % 1.1 (0.00-5.0) % Basophils % 0.6 (0.0-0.4) % Absolute Granulocytes 6.98 H (1.4-6.9) x10^3/uL Basophils # 0.06 (0-0.4) x10^3/uL D-Dimer < 0.19 (0.0-0.50) mg/L Sodium 136 L (137-145) mmol/L Potassium 3.9 (3.5-5.1) mmol/L Chloride 107 (98-107) mmol/L Carbon Dioxide 19 L (22-30) mmol/L Anion Gap 14.7 (5-15) MEQ/L BUN 14 (9-20) mg/dL Creatinine 0.99 (0.66-1.25) mg/dL Estimated GFR > 60.0 ML/MIN Glucose 103 (74-106) mg/dL Calcium 9.1 (8.4-10.2) mg/dL Total Bilirubin 1.30 (0.2-1.3) mg/dL AST 27 (17-59) U/L ALT 50 (0-50) U/L Alkaline Phosphatase 63 (38-126) U/L Troponin I (0.000-0.034) ng/mL Serum Total Protein 7.5 (6.3-8.2) g/dL Albumin 4.7 (3.5-5.0) g/dL 07/27/23 07/28/23 Range/Units 22:50 03:29 WBC (4.0-10.5) x10^3/uL RBC (4.1-5.6) x10^6/uL Hgb (12.5-18.0) g/dL Hct (42-50) % MCV (78-100) fL MCH (26-32) pg MCHC (32-36) g/dL RDW (11.5-14.0) % Plt Count (150-450) x10^3/uL MPV (7.5-11.0) fL Gran % (36.0-66.0) % Immature Gran % (Auto) (0.00-0.4) % Nucleat RBC Rel Count (0.00-0.1) % Eos # (Auto) (0-0.5) x10^3/uL Immature Gran # (Auto) (0.00-0.03) x10^3u/L Absolute Lymphs (auto) (1.0-4.6) x10^3/uL Absolute Monos (auto) (0.0-1.3) x10^3/uL Absolute Nucleated RBC (0.00-0.01) x10^3u/L Lymphocytes % (24.0-44.0) % Monocytes % (0.0-12.0) % Eosinophils % (0.00-5.0) % Basophils % (0.0-0.4) % Absolute Granulocytes (1.4-6.9) x10^3/uL Basophils # (0-0.4) x10^3/uL D-Dimer (0.0-0.50) mg/L Sodium (137-145) mmol/L Potassium (3.5-5.1) mmol/L Chloride (98-107) mmol/L Carbon Dioxide (22-30) mmol/L Anion Gap (5-15) MEQ/L BUN (9-20) mg/dL Creatinine (0.66-1.25) mg/dL Estimated GFR ML/MIN Glucose (74-106) mg/dL Calcium (8.4-10.2) mg/dL Total Bilirubin (0.2-1.3) mg/dL AST (17-59) U/L ALT (0-50) U/L Alkaline Phosphatase (38-126) U/L Troponin I < 0.012 < 0.012 (0.000-0.034) ng/mL Serum Total Protein (6.3-8.2) g/dL Albumin (3.5-5.0) g/dL - Radiology Impressions Radiology Exams & Impressions: Radiology Procedures Category Date Time Status CHEST 1 VIEW (PORTABLE) Stat Exams 07/27/23 23:35 Taken ECHO W/2D AND DOPPLER [US] Routine Exams 07/28/23 06:02 Ordered Assessment/Plan (1) Chest pain Current Visit: Yes Status: Acute Code(s): R07.9 - CHEST PAIN, UNSPECIFIED (2) Anxiety Current Visit: No Status: Acute Assessment & Plan: ASSESSMENT #Chest pain #History of hypothyroid #History of diabetes #History of schizophrenia PLAN -Trend troponin -Monitor on telemetry -Echo ordered -Likely will need stress test Prophylaxis: Lovenox Entire encounter performed via telemedicine Code(s): F41.9 - ANXIETY DISORDER, UNSPECIFIED Telemedicine Encounter - Telemedicine Encounter Telemedicine Encounter: The entirety of this encounter was performed via Telemedicine"
[2023-07-28 06:36] LABS: ALBUMIN 4.3 g/dL (3.5-5.0); ALKALINE PHOSPHATASE 62 U/L (38-126); ANION GAP 13.4 MEQ/L (5-15); BLOOD UREA NITROGEN 13 mg/dL (9-20); CHLORIDE 106 mmol/L (98-107); Carbon Dioxide 23 mmol/L (22-30); Creatinine 1 1.07 mg/dL (0.66-1.25); EST GLOMERULAR FILTRATION RATE > 60.0 ML/MIN; Glucose 90 mg/dL (74-106); Potassium 3.8 mmol/L (3.5-5.1); SGOT/AST 23 U/L (17-59); SGPT/ALT 46 U/L (0-50); SODIUM 138 mmol/L (137-145)
[2023-07-28] MEDS ORDERED: Protonix 40MG Tablet PO PRN (07:02)
[2023-07-28] MEDS ORDERED: ATARAX 25 MG PO PRN (07:03)
[2023-07-28 07:37] VITALS: TEMP 97.5
[2023-07-28] MEDS ORDERED: Cardizem IV 50 MG/10 ML IV ONE (08:27)
[2023-07-28] MEDS ORDERED: CARDIZEM DRIP 100 MG/100 ML D5W 100 ML IV PRN (08:28)
[2023-07-28 09:37] LABS: Risk Ratio 4.6; TSH, 3RD Generation 1.73 mIU/L (0.47-4.68)
[2023-07-28] MEDS ORDERED: SYNTHROID 100 MCG PO SCH (10:00)
[2023-07-28] MEDS ORDERED: Januvia 50 MG PO SCH (10:00)
--- NOTE | 2023-07-28 12:04 | PCM.NOTE ---
Date and Time: 07/28/23 1204 Subjective Assessment: This is a 57-year-old male admitted for evaluation of chest pain. He has past medical history of diabetes, hypothyroid, schizophrenia/anxiety, chronic back pain. He presented to the ED tonight for evaluation of sudden onset shortness of breath and chest pressure. Pain is substernal and constant in nature. No exacerbating nor alleviating symptoms. On arrival to the ED he was afebrile, heart rate 108, blood pressure 117/89. Labs significant for WBC 10, platelets 284, D-dimer negative, troponin negative x2. Chest x-ray negative for acute pathology. In the ED he received aspirin and Nitro-Bid. He reports CP pain is still present, worse with movement/talking, "feels like elephant is sitting on my chest," and also is reporting pain in head, neck and low back. No associated jaw/arm pain, diaphoresis, N/V, or abdominal pain. Patient showing Aflutter on EKG with HR in the 130's 140's. Started on cardizem drip. Cards consult pending. - Review of Systems Constitutional: No Symptoms Eyes: No Symptoms Ears, Nose, & Throat: No Symptoms Respiratory: No Symptoms Cardiac: Chest Pain Abdominal/Gastrointestinal: No Symptoms Genitourinary Symptoms: No Symptoms Musculoskeletal: Joint Pain Skin: No Symptoms Neurological: No Symptoms Psychological: No Symptoms Endocrine: No Symptoms Hematologic/Lymphatic: No Symptoms Immunological/Allergic: No Symptoms Objective Exam General Appearance: mild distress Neurologic Exam: alert, oriented x 3, cooperative Skin Exam: normal color Eye Exam: PERRL Ears, Nose, Throat Exam: normal ENT inspection Neck Exam: normal inspection Respiratory Exam: normal breath sounds, lungs clear Cardiovascular Exam: tachycardia, irregular Gastrointestinal/Abdomen Exam: soft, normal bowel sounds, tenderness Extremity Exam: normal inspection Back Exam: normal inspection OBJECTIVE DATA Vital Signs: Vital Signs - 24 hr Temp Pulse Pulse Resp BP BP BP 07/28/23 11:04 127 H 16 83/52 07/28/23 11:00 127 H 16 83/52 07/28/23 10:00 97 H 16 96/64 07/28/23 09:45 100 H 20 108/72 07/28/23 09:00 87 07/28/23 08:41 105 H 19 128/78 07/28/23 08:07 07/28/23 07:37 97.5 F 78 16 102/65 07/28/23 07:11 07/28/23 05:20 07/28/23 04:29 98.0 F 72 19 121/81 07/28/23 04:17 139 H 16 82/60 07/28/23 04:15 140 H 18 82/67 07/28/23 04:00 07/28/23 03:01 137 H 14 94/70 07/28/23 02:48 114 H 16 113/67 07/28/23 02:30 86 18 95/60 07/28/23 02:05 127 H 19 90/72 07/28/23 02:01 137 H 20 81/70 07/28/23 02:00 139 H 18 87/56 07/28/23 01:30 138 H 18 96/70 07/28/23 01:00 138 H 15 112/90 07/28/23 00:31 112 H 14 103/80 07/28/23 00:15 107 H 14 119/98 07/28/23 00:00 134 H 15 136/87 07/27/23 23:30 102 H 15 113/65 07/27/23 23:13 114 H 19 117/74 07/27/23 23:00 101 H 15 86/63 07/27/23 22:43 07/27/23 22:42 119 H 16 105/76 07/27/23 22:27 126 H 29 H 117/89 07/27/23 22:25 97 F 108 H 120 H 17 117/89 Pulse Ox 07/28/23 11:04 07/28/23 11:00 94 L 07/28/23 10:00 93 L 07/28/23 09:45 91 L 07/28/23 09:00 07/28/23 08:41 07/28/23 08:07 96 07/28/23 07:37 94 L 07/28/23 07:11 96 07/28/23 05:20 99 07/28/23 04:29 98 07/28/23 04:17 95 07/28/23 04:15 96 07/28/23 04:00 99 07/28/23 03:01 96 07/28/23 02:48 98 07/28/23 02:30 94 L 07/28/23 02:05 95 07/28/23 02:01 95 07/28/23 02:00 93 L 07/28/23 01:30 95 07/28/23 01:00 95 07/28/23 00:31 95 07/28/23 00:15 93 L 07/28/23 00:00 95 07/27/23 23:30 93 L 07/27/23 23:13 98 07/27/23 23:00 93 L 07/27/23 22:43 97 07/27/23 22:42 98 07/27/23 22:27 95 07/27/23 22:25 99 Pain Assessment - Last Documented Pain Intensity 2 Pain Scale Used 0-10 Pain Scale Intake and Output: Intake & Output 07/26/23 07/27/23 07/28/23 07/29/23 11:59 11:59 11:59 11:59 Intake Total 120 Output Total 700 Balance -580 Weight 133.5 kg Lab Results: Lab Results-Last 24 Hours 07/27/23 07/27/23 07/27/23 Range/Units 22:50 22:50 22:50 WBC 10.2 (4.0-10.5) x10^3/uL RBC 5.51 (4.1-5.6) x10^6/uL Hgb 17.9 (12.5-18.0) g/dL Hct 52.6 H (42-50) % MCV 95.5 (78-100) fL MCH 32.5 H (26-32) pg MCHC 34.0 (32-36) g/dL RDW 13.0 (11.5-14.0) % Plt Count 284 (150-450) x10^3/uL MPV 10.4 (7.5-11.0) fL Gran % 68.3 H (36.0-66.0) % Immature Gran % (Auto) 0.3 (0.00-0.4) % Nucleat RBC Rel Count 0.0 (0.00-0.1) % Eos # (Auto) 0.11 (0-0.5) x10^3/uL Immature Gran # (Auto) 0.03 (0.00-0.03) x10^3u/L Absolute Lymphs (auto) 2.26 (1.0-4.6) x10^3/uL Absolute Monos (auto) 0.76 (0.0-1.3) x10^3/uL Absolute Nucleated RBC 0.00 (0.00-0.01) x10^3u/L Lymphocytes % 22.2 L (24.0-44.0) % Monocytes % 7.5 (0.0-12.0) % Eosinophils % 1.1 (0.00-5.0) % Basophils % 0.6 (0.0-0.4) % Absolute Granulocytes 6.98 H (1.4-6.9) x10^3/uL Basophils # 0.06 (0-0.4) x10^3/uL D-Dimer < 0.19 (0.0-0.50) mg/L Sodium 136 L (137-145) mmol/L Potassium 3.9 (3.5-5.1) mmol/L Chloride 107 (98-107) mmol/L Carbon Dioxide 19 L (22-30) mmol/L Anion Gap 14.7 (5-15) MEQ/L BUN 14 (9-20) mg/dL Creatinine 0.99 (0.66-1.25) mg/dL Estimated GFR > 60.0 ML/MIN Glucose 103 (74-106) mg/dL Hemoglobin A1c (4.5-6.0) % Calcium 9.1 (8.4-10.2) mg/dL Magnesium (1.6-2.3) mg/dL Total Bilirubin 1.30 (0.2-1.3) mg/dL AST 27 (17-59) U/L ALT 50 (0-50) U/L Alkaline Phosphatase 63 (38-126) U/L Troponin I (0.000-0.034) ng/mL Serum Total Protein 7.5 (6.3-8.2) g/dL Albumin 4.7 (3.5-5.0) g/dL Triglycerides (30-150) mg/dL Cholesterol (50-200) mg/dL LDL Cholesterol (30-100) mg/dL HDL Cholesterol (40-60) mg/dL Heart Disease Risk Ratio TSH 3rd Generation (0.47-4.68) mIU/L 07/27/23 07/28/23 07/28/23 Range/Units 22:50 03:29 05:48 WBC (4.0-10.5) x10^3/uL RBC (4.1-5.6) x10^6/uL Hgb (12.5-18.0) g/dL Hct (42-50) % MCV (78-100) fL MCH (26-32) pg MCHC (32-36) g/dL RDW (11.5-14.0) % Plt Count (150-450) x10^3/uL MPV (7.5-11.0) fL Gran % (36.0-66.0) % Immature Gran % (Auto) (0.00-0.4) % Nucleat RBC Rel Count (0.00-0.1) % Eos # (Auto) (0-0.5) x10^3/uL Immature Gran # (Auto) (0.00-0.03) x10^3u/L Absolute Lymphs (auto) (1.0-4.6) x10^3/uL Absolute Monos (auto) (0.0-1.3) x10^3/uL Absolute Nucleated RBC (0.00-0.01) x10^3u/L Lymphocytes % (24.0-44.0) % Monocytes % (0.0-12.0) % Eosinophils % (0.00-5.0) % Basophils % (0.0-0.4) % Absolute Granulocytes (1.4-6.9) x10^3/uL Basophils # (0-0.4) x10^3/uL D-Dimer (0.0-0.50) mg/L Sodium (137-145) mmol/L Potassium (3.5-5.1) mmol/L Chloride (98-107) mmol/L Carbon Dioxide (22-30) mmol/L Anion Gap (5-15) MEQ/L BUN (9-20) mg/dL Creatinine (0.66-1.25) mg/dL Estimated GFR ML/MIN Glucose (74-106) mg/dL Hemoglobin A1c (4.5-6.0) % Calcium (8.4-10.2) mg/dL Magnesium (1.6-2.3) mg/dL Total Bilirubin (0.2-1.3) mg/dL AST (17-59) U/L ALT (0-50) U/L Alkaline Phosphatase (38-126) U/L Troponin I < 0.012 < 0.012 (0.000-0.034) ng/mL Serum Total Protein (6.3-8.2) g/dL Albumin (3.5-5.0) g/dL Triglycerides 169 H (30-150) mg/dL Cholesterol 181 (50-200) mg/dL LDL Cholesterol 108 H (30-100) mg/dL HDL Cholesterol 39 L (40-60) mg/dL Heart Disease Risk Ratio 4.6 TSH 3rd Generation 1.730 (0.47-4.68) mIU/L 07/28/23 07/28/23 07/28/23 Range/Units 06:12 06:12 06:12 WBC 12.4 H (4.0-10.5) x10^3/uL RBC 5.33 (4.1-5.6) x10^6/uL Hgb 17.3 (12.5-18.0) g/dL Hct 51.5 H (42-50) % MCV 96.6 (78-100) fL MCH 32.5 H (26-32) pg MCHC 33.6 (32-36) g/dL RDW 13.2 (11.5-14.0) % Plt Count 267 (150-450) x10^3/uL MPV 9.9 (7.5-11.0) fL Gran % (36.0-66.0) % Immature Gran % (Auto) (0.00-0.4) % Nucleat RBC Rel Count (0.00-0.1) % Eos # (Auto) (0-0.5) x10^3/uL Immature Gran # (Auto) (0.00-0.03) x10^3u/L Absolute Lymphs (auto) (1.0-4.6) x10^3/uL Absolute Monos (auto) (0.0-1.3) x10^3/uL Absolute Nucleated RBC (0.00-0.01) x10^3u/L Lymphocytes % (24.0-44.0) % Monocytes % (0.0-12.0) % Eosinophils % (0.00-5.0) % Basophils % (0.0-0.4) % Absolute Granulocytes (1.4-6.9) x10^3/uL Basophils # (0-0.4) x10^3/uL D-Dimer (0.0-0.50) mg/L Sodium 138 (137-145) mmol/L Potassium 3.8 (3.5-5.1) mmol/L Chloride 106 (98-107) mmol/L Carbon Dioxide 23 (22-30) mmol/L Anion Gap 13.4 (5-15) MEQ/L BUN 13 (9-20) mg/dL Creatinine 1.07 (0.66-1.25) mg/dL Estimated GFR > 60.0 ML/MIN Glucose 90 (74-106) mg/dL Hemoglobin A1c (4.5-6.0) % Calcium 9.0 (8.4-10.2) mg/dL Magnesium 2.1 (1.6-2.3) mg/dL Total Bilirubin 1.30 (0.2-1.3) mg/dL AST 23 (17-59) U/L ALT 46 (0-50) U/L Alkaline Phosphatase 62 (38-126) U/L Troponin I (0.000-0.034) ng/mL Serum Total Protein 7.0 (6.3-8.2) g/dL Albumin 4.3 (3.5-5.0) g/dL Triglycerides (30-150) mg/dL Cholesterol (50-200) mg/dL LDL Cholesterol (30-100) mg/dL HDL Cholesterol (40-60) mg/dL Heart Disease Risk Ratio TSH 3rd Generation (0.47-4.68) mIU/L 07/28/23 07/28/23 Range/Units 06:12 07:25 WBC (4.0-10.5) x10^3/uL RBC (4.1-5.6) x10^6/uL Hgb (12.5-18.0) g/dL Hct (42-50) % MCV (78-100) fL MCH (26-32) pg MCHC (32-36) g/dL RDW (11.5-14.0) % Plt Count (150-450) x10^3/uL MPV (7.5-11.0) fL Gran % (36.0-66.0) % Immature Gran % (Auto) (0.00-0.4) % Nucleat RBC Rel Count (0.00-0.1) % Eos # (Auto) (0-0.5) x10^3/uL Immature Gran # (Auto) (0.00-0.03) x10^3u/L Absolute Lymphs (auto) (1.0-4.6) x10^3/uL Absolute Monos (auto) (0.0-1.3) x10^3/uL Absolute Nucleated RBC (0.00-0.01) x10^3u/L Lymphocytes % (24.0-44.0) % Monocytes % (0.0-12.0) % Eosinophils % (0.00-5.0) % Basophils % (0.0-0.4) % Absolute Granulocytes (1.4-6.9) x10^3/uL Basophils # (0-0.4) x10^3/uL D-Dimer (0.0-0.50) mg/L Sodium (137-145) mmol/L Potassium (3.5-5.1) mmol/L Chloride (98-107) mmol/L Carbon Dioxide (22-30) mmol/L Anion Gap (5-15) MEQ/L BUN (9-20) mg/dL Creatinine (0.66-1.25) mg/dL Estimated GFR ML/MIN Glucose (74-106) mg/dL Hemoglobin A1c 5.22 (4.5-6.0) % Calcium (8.4-10.2) mg/dL Magnesium (1.6-2.3) mg/dL Total Bilirubin (0.2-1.3) mg/dL AST (17-59) U/L ALT (0-50) U/L Alkaline Phosphatase (38-126) U/L Troponin I 0.079 H* (0.000-0.034) ng/mL Serum Total Protein (6.3-8.2) g/dL Albumin (3.5-5.0) g/dL Triglycerides (30-150) mg/dL Cholesterol (50-200) mg/dL LDL Cholesterol (30-100) mg/dL HDL Cholesterol (40-60) mg/dL Heart Disease Risk Ratio TSH 3rd Generation (0.47-4.68) mIU/L Radiology Exams: Radiology Procedures Category Date Time Status CHEST 1 VIEW (PORTABLE) Stat Exams 07/27/23 23:35 Taken ECHO W/2D AND DOPPLER [US] Routine Exams 07/28/23 08:47 Taken Assessment/Plan (1) Chest pain Current Visit: Yes Status: Acute Assessment & Plan: 2 gm Na diet consult cardiology, likely will need stress test CXR demonstrates no acute cardiopulmonary disease start ASA and NTG sublingual PRN serial troponin showing uptrend and ECG with aflutter, no ST elevation/deviation. HR in 130's, cardizem drip has been started Echo pending CBC, CMP, Mg, Phos, lipid panel, HgbA1c in am continue appropriate baseline home medications DVT prophylaxis-Lovenox 40 mg SQ daily Code(s): R07.9 - CHEST PAIN, UNSPECIFIED (2) Atrial flutter Current Visit: Yes Status: Acute Assessment & Plan: - -Type: new onset -Monitor on Telemetry -Rate controlled with: Cardizem, metoprolol -rate control to target goal HR <85 bpm at rest if symptomatic, goal HR <110 bpm if asymptomatic -[id number]: 1 -On Lovenox for Anticoagulation -optimize electrolytes for goal of K at 4 and magnesium at 2 Code(s): I48.92 - UNSPECIFIED ATRIAL FLUTTER (3) Anxiety Current Visit: No Status: Acute Assessment & Plan: -resume all appropriate home meds Code(s): F41.9 - ANXIETY DISORDER, UNSPECIFIED (4) Hypothyroid Current Visit: Yes Status: Acute Assessment & Plan: -Continue home meds, TSH WNL Code(s): E03.9 - HYPOTHYROIDISM, UNSPECIFIED (5) HLD (hyperlipidemia) Current Visit: Yes Status: Acute Assessment & Plan: -Continue statin VTE: lovenox PPI: protonix Next of Kin: Jodi Tsai [phone] (friend) Dispo: 2-3 days Code(s): E78.5 - HYPERLIPIDEMIA, UNSPECIFIED
[2023-07-28] MEDS ORDERED: ENOXAPARIN SODIUM SQ SCH (13:00)
[2023-07-28] MEDS ORDERED: Toprol-Xl 25MG Tablets PO SCH (13:30)
--- NOTE | 2023-07-28 13:54 | XRAY ---
Indication: Chest pain. Comparison: April 01, 2022 Portable apical lordotic chest demonstrates normal heart and lungs. Bony thorax intact again with mild degenerative changes. No new/acute findings.
[2023-07-28] MEDS ORDERED: Tums EX 750 MG PO PRN (15:17)
[2023-07-28] MEDS ORDERED: MORPHINE SULFATE 2 MG INJ IV PRN (16:35)
[2023-07-28 18:24] VITALS: O2SAT 96
--- NOTE | 2023-07-28 18:43 | PCM.DS ---
Discharge Summary Date of Admission: 07/28/23 04:19 Date of Discharge: 07/28/23 Admitting Physician: JOSSY RUTH MD Consults: Consults on Case 07/28/23 07:45 Consult Cardiology ROUTINE Primary Care Provider: JAVI BEJARANO Allergies Allergies No Known Drug Allergies Allergy (Verified 07/27/23 22:26) Hospital Summary - Hospital Course Hospital Course: This is a 57-year-old male admitted for evaluation of chest pain. He has past medical history of diabetes, hypothyroid, schizophrenia/anxiety, chronic back pain. He presented to the ED 07/27/23 for evaluation of sudden onset shortness of breath and chest pressure. Pain is substernal and constant in nature. No exacerbating nor alleviating symptoms. On arrival to the ED he was afebrile, heart rate 108, blood pressure 117/89. Labs significant for WBC 10, platelets 284, D-dimer negative, troponin negative x2. Chest x-ray negative for acute pathology. In the ED he received aspirin and Nitro-Bid. He reports CP pain is still constant, worse with movement/talking, "feels like elephant is sitting on my chest," and also is reporting pain in head, neck and low back. No associated jaw/arm pain, diaphoresis, N/V, or abdominal pain. Patient showing Aflutter on EKG with HR in the 130's 140's. Repeat troponins were uptrending. CTA currently pending. Started on cardizem drip/metoprolol po. Cards consult with Dr. Asa Matthews. Per cards recommendations, patient will transfer to [place] for possible caridoversion/cath pending bed availability. New Diagnosis: Chest pain New Medications: cardizem/metoprolol/Lovenox Latest Assessment & Plan (1) Chest pain Current Visit: Yes Status: Acute Assessment & Plan: 2 gm Na diet consult cardiology, likely will need stress test CXR demonstrates no acute cardiopulmonary disease start ASA and NTG sublingual PRN serial troponin showing uptrend and ECG with aflutter, no ST el evation/deviation. HR in 130's, cardizem drip has been started Echo pending CBC, CMP, Mg, Phos, lipid panel, HgbA1c in am continue appropriate baseline home medications DVT prophylaxis-Lovenox 40 mg SQ daily Code(s): R07.9 - CHEST PAIN, UNSPECIFIED (2) Atrial flutter Current Visit: Yes Status: Acute Assessment & Plan: - -Type: new onset -Monitor on Telemetry -Rate controlled with: Cardizem, metoprolol -rate control to target goal HR <85 bpm at rest if symptomatic, goal HR <110 bpm if asymptomatic -[id number]: 1 -On Lovenox for Anticoagulation -optimize electrolytes for goal of K at 4 and magnesium at 2 Code(s): I48.92 - UNSPECIFIED ATRIAL FLUTTER (3) Anxiety Current Visit: No Status: Acute Assessment & Plan: -resume all appropriate home meds Code(s): F41.9 - ANXIETY DISORDER, UNSPECIFIED (4) Hypothyroid Current Visit: Yes Status: Acute Assessment & Plan: -Continue home meds, TSH WNL Code(s): E03.9 - HYPOTHYROIDISM, UNSPECIFIED (5) HLD (hyperlipidemia) Current Visit: Yes Status: Acute Assessment & Plan: -Continue statin VTE: lovenox PPI: protonix Next of Kin: Jodi Tsai [phone] (friend) I spent 35 minutes [id number] with the patient on the day of discharge performing discharge exam, discussing hospital stay and discharge instructions with patient and caregivers, preparation of discharge records, prescriptions & referral forms and addressing any questions/concerns the patient had as documented above. - Vitals & Intake/Output Vital Signs: Vital Signs Temperature 97.5 F 07/28/23 07:37 Pulse Rate 71 07/28/23 18:24 Respiratory Rate 16 07/28/23 18:24 Blood Pressure 126/90 07/28/23 18:24 O2 Sat by Pulse Oximetry 96 07/28/23 18:24 Intake & Output: Intake & Output 07/26/23 07/27/23 07/28/23 07/29/23 11:59 11:59 11:59 11:59 Intake Total 120 480 Output Total 700 575 Balance -580 -95 Weight 133.5 kg - Lab Result Diagrams: 07/28/23 06:12 07/28/23 06:12 Lab Results-Last 24 Hrs: Lab Results-Last 24 Hours 07/27/23 07/27/23 07/27/23 Range/Units 22:50 22:50 22:50 WBC 10.2 (4.0-10.5) x10^3/uL RBC 5.51 (4.1-5.6) x10^6/uL Hgb 17.9 (12.5-18.0) g/dL Hct 52.6 H (42-50) % MCV 95.5 (78-100) fL MCH 32.5 H (26-32) pg MCHC 34.0 (32-36) g/dL RDW 13.0 (11.5-14.0) % Plt Count 284 (150-450) x10^3/uL MPV 10.4 (7.5-11.0) fL Gran % 68.3 H (36.0-66.0) % Immature Gran % (Auto) 0.3 (0.00-0.4) % Nucleat RBC Rel Count 0.0 (0.00-0.1) % Eos # (Auto) 0.11 (0-0.5) x10^3/uL Immature Gran # (Auto) 0.03 (0.00-0.03) x10^3u/L Absolute Lymphs (auto) 2.26 (1.0-4.6) x10^3/uL Absolute Monos (auto) 0.76 (0.0-1.3) x10^3/uL Absolute Nucleated RBC 0.00 (0.00-0.01) x10^3u/L Lymphocytes % 22.2 L (24.0-44.0) % Monocytes % 7.5 (0.0-12.0) % Eosinophils % 1.1 (0.00-5.0) % Basophils % 0.6 (0.0-0.4) % Absolute Granulocytes 6.98 H (1.4-6.9) x10^3/uL Basophils # 0.06 (0-0.4) x10^3/uL D-Dimer < 0.19 (0.0-0.50) mg/L Sodium 136 L (137-145) mmol/L Potassium 3.9 (3.5-5.1) mmol/L Chloride 107 (98-107) mmol/L Carbon Dioxide 19 L (22-30) mmol/L Anion Gap 14.7 (5-15) MEQ/L BUN 14 (9-20) mg/dL Creatinine 0.99 (0.66-1.25) mg/dL Estimated GFR > 60.0 ML/MIN Glucose 103 (74-106) mg/dL Hemoglobin A1c (4.5-6.0) % Calcium 9.1 (8.4-10.2) mg/dL Magnesium (1.6-2.3) mg/dL Total Bilirubin 1.30 (0.2-1.3) mg/dL AST 27 (17-59) U/L ALT 50 (0-50) U/L Alkaline Phosphatase 63 (38-126) U/L Troponin I (0.000-0.034) ng/mL Serum Total Protein 7.5 (6.3-8.2) g/dL Albumin 4.7 (3.5-5.0) g/dL Triglycerides (30-150) mg/dL Cholesterol (50-200) mg/dL LDL Cholesterol (30-100) mg/dL HDL Cholesterol (40-60) mg/dL Heart Disease Risk Ratio TSH 3rd Generation (0.47-4.68) mIU/L 07/27/23 07/28/23 07/28/23 Range/Units 22:50 03:29 05:48 WBC (4.0-10.5) x10^3/uL RBC (4.1-5.6) x10^6/uL Hgb (12.5-18.0) g/dL Hct (42-50) % MCV (78-100) fL MCH (26-32) pg MCHC (32-36) g/dL RDW (11.5-14.0) % Plt Count (150-450) x10^3/uL MPV (7.5-11.0) fL Gran % (36.0-66.0) % Immature Gran % (Auto) (0.00-0.4) % Nucleat RBC Rel Count (0.00-0.1) % Eos # (Auto) (0-0.5) x10^3/uL Immature Gran # (Auto) (0.00-0.03) x10^3u/L Absolute Lymphs (auto) (1.0-4.6) x10^3/uL Absolute Monos (auto) (0.0-1.3) x10^3/uL Absolute Nucleated RBC (0.00-0.01) x10^3u/L Lymphocytes % (24.0-44.0) % Monocytes % (0.0-12.0) % Eosinophils % (0.00-5.0) % Basophils % (0.0-0.4) % Absolute Granulocytes (1.4-6.9) x10^3/uL Basophils # (0-0.4) x10^3/uL D-Dimer (0.0-0.50) mg/L Sodium (137-145) mmol/L Potassium (3.5-5.1) mmol/L Chloride (98-107) mmol/L Carbon Dioxide (22-30) mmol/L Anion Gap (5-15) MEQ/L BUN (9-20) mg/dL Creatinine (0.66-1.25) mg/dL Estimated GFR ML/MIN Glucose (74-106) mg/dL Hemoglobin A1c (4.5-6.0) % Calcium (8.4-10.2) mg/dL Magnesium (1.6-2.3) mg/dL Total Bilirubin (0.2-1.3) mg/dL AST (17-59) U/L ALT (0-50) U/L Alkaline Phosphatase (38-126) U/L Troponin I < 0.012 < 0.012 (0.000-0.034) ng/mL Serum Total Protein (6.3-8.2) g/dL Albumin (3.5-5.0) g/dL Triglycerides 169 H (30-150) mg/dL Cholesterol 181 (50-200) mg/dL LDL Cholesterol 108 H (30-100) mg/dL HDL Cholesterol 39 L (40-60) mg/dL Heart Disease Risk Ratio 4.6 TSH 3rd Generation 1.730 (0.47-4.68) mIU/L 07/28/23 07/28/23 07/28/23 Range/Units 06:12 06:12 06:12 WBC 12.4 H (4.0-10.5) x10^3/uL RBC 5.33 (4.1-5.6) x10^6/uL Hgb 17.3 (12.5-18.0) g/dL Hct 51.5 H (42-50) % MCV 96.6 (78-100) fL MCH 32.5 H (26-32) pg MCHC 33.6 (32-36) g/dL RDW 13.2 (11.5-14.0) % Plt Count 267 (150-450) x10^3/uL MPV 9.9 (7.5-11.0) fL Gran % (36.0-66.0) % Immature Gran % (Auto) (0.00-0.4) % Nucleat RBC Rel Count (0.00-0.1) % Eos # (Auto) (0-0.5) x10^3/uL Immature Gran # (Auto) (0.00-0.03) x10^3u/L Absolute Lymphs (auto) (1.0-4.6) x10^3/uL Absolute Monos (auto) (0.0-1.3) x10^3/uL Absolute Nucleated RBC (0.00-0.01) x10^3u/L Lymphocytes % (24.0-44.0) % Monocytes % (0.0-12.0) % Eosinophils % (0.00-5.0) % Basophils % (0.0-0.4) % Absolute Granulocytes (1.4-6.9) x10^3/uL Basophils # (0-0.4) x10^3/uL D-Dimer (0.0-0.50) mg/L Sodium 138 (137-145) mmol/L Potassium 3.8 (3.5-5.1) mmol/L Chloride 106 (98-107) mmol/L Carbon Dioxide 23 (22-30) mmol/L Anion Gap 13.4 (5-15) MEQ/L BUN 13 (9-20) mg/dL Creatinine 1.07 (0.66-1.25) mg/dL Estimated GFR > 60.0 ML/MIN Glucose 90 (74-106) mg/dL Hemoglobin A1c (4.5-6.0) % Calcium 9.0 (8.4-10.2) mg/dL Magnesium 2.1 (1.6-2.3) mg/dL Total Bilirubin 1.30 (0.2-1.3) mg/dL AST 23 (17-59) U/L ALT 46 (0-50) U/L Alkaline Phosphatase 62 (38-126) U/L Troponin I (0.000-0.034) ng/mL Serum Total Protein 7.0 (6.3-8.2) g/dL Albumin 4.3 (3.5-5.0) g/dL Triglycerides (30-150) mg/dL Cholesterol (50-200) mg/dL LDL Cholesterol (30-100) mg/dL HDL Cholesterol (40-60) mg/dL Heart Disease Risk Ratio TSH 3rd Generation (0.47-4.68) mIU/L 07/28/23 07/28/23 07/28/23 Range/Units 06:12 07:25 11:17 WBC (4.0-10.5) x10^3/uL RBC (4.1-5.6) x10^6/uL Hgb (12.5-18.0) g/dL Hct (42-50) % MCV (78-100) fL MCH (26-32) pg MCHC (32-36) g/dL RDW (11.5-14.0) % Plt Count (150-450) x10^3/uL MPV (7.5-11.0) fL Gran % (36.0-66.0) % Immature Gran % (Auto) (0.00-0.4) % Nucleat RBC Rel Count (0.00-0.1) % Eos # (Auto) (0-0.5) x10^3/uL Immature Gran # (Auto) (0.00-0.03) x10^3u/L Absolute Lymphs (auto) (1.0-4.6) x10^3/uL Absolute Monos (auto) (0.0-1.3) x10^3/uL Absolute Nucleated RBC (0.00-0.01) x10^3u/L Lymphocytes % (24.0-44.0) % Monocytes % (0.0-12.0) % Eosinophils % (0.00-5.0) % Basophils % (0.0-0.4) % Absolute Granulocytes (1.4-6.9) x10^3/uL Basophils # (0-0.4) x10^3/uL D-Dimer (0.0-0.50) mg/L Sodium (137-145) mmol/L Potassium (3.5-5.1) mmol/L Chloride (98-107) mmol/L Carbon Dioxide (22-30) mmol/L Anion Gap (5-15) MEQ/L BUN (9-20) mg/dL Creatinine (0.66-1.25) mg/dL Estimated GFR ML/MIN Glucose (74-106) mg/dL Hemoglobin A1c 5.22 (4.5-6.0) % Calcium (8.4-10.2) mg/dL Magnesium (1.6-2.3) mg/dL Total Bilirubin (0.2-1.3) mg/dL AST (17-59) U/L ALT (0-50) U/L Alkaline Phosphatase (38-126) U/L Troponin I 0.079 H* 0.113 H* (0.000-0.034) ng/mL Serum Total Protein (6.3-8.2) g/dL Albumin (3.5-5.0) g/dL Triglycerides (30-150) mg/dL Cholesterol (50-200) mg/dL LDL Cholesterol (30-100) mg/dL HDL Cholesterol (40-60) mg/dL Heart Disease Risk Ratio TSH 3rd Generation (0.47-4.68) mIU/L 07/28/23 Range/Units 15:06 WBC (4.0-10.5) x10^3/uL RBC (4.1-5.6) x10^6/uL Hgb (12.5-18.0) g/dL Hct (42-50) % MCV (78-100) fL MCH (26-32) pg MCHC (32-36) g/dL RDW (11.5-14.0) % Plt Count (150-450) x10^3/uL MPV (7.5-11.0) fL Gran % (36.0-66.0) % Immature Gran % (Auto) (0.00-0.4) % Nucleat RBC Rel Count (0.00-0.1) % Eos # (Auto) (0-0.5) x10^3/uL Immature Gran # (Auto) (0.00-0.03) x10^3u/L Absolute Lymphs (auto) (1.0-4.6) x10^3/uL Absolute Monos (auto) (0.0-1.3) x10^3/uL Absolute Nucleated RBC (0.00-0.01) x10^3u/L Lymphocytes % (24.0-44.0) % Monocytes % (0.0-12.0) % Eosinophils % (0.00-5.0) % Basophils % (0.0-0.4) % Absolute Granulocytes (1.4-6.9) x10^3/uL Basophils # (0-0.4) x10^3/uL D-Dimer (0.0-0.50) mg/L Sodium (137-145) mmol/L Potassium (3.5-5.1) mmol/L Chloride (98-107) mmol/L Carbon Dioxide (22-30) mmol/L Anion Gap (5-15) MEQ/L BUN (9-20) mg/dL Creatinine (0.66-1.25) mg/dL Estimated GFR ML/MIN Glucose (74-106) mg/dL Hemoglobin A1c (4.5-6.0) % Calcium (8.4-10.2) mg/dL Magnesium (1.6-2.3) mg/dL Total Bilirubin (0.2-1.3) mg/dL AST (17-59) U/L ALT (0-50) U/L Alkaline Phosphatase (38-126) U/L Troponin I 0.127 H* (0.000-0.034) ng/mL Serum Total Protein (6.3-8.2) g/dL Albumin (3.5-5.0) g/dL Triglycerides (30-150) mg/dL Cholesterol (50-200) mg/dL LDL Cholesterol (30-100) mg/dL HDL Cholesterol (40-60) mg/dL Heart Disease Risk Ratio TSH 3rd Generation (0.47-4.68) mIU/L - Radiology Exams Ordered Rad Exams-Entire Visit: Radiology Procedures Category Date Time Status CHEST 1 VIEW (PORTABLE) Stat Exams 07/27/23 23:35 Completed CTA CHEST W AND/OR WO [CT] Stat Exams 07/28/23 16:37 Taken ECHO W/2D AND DOPPLER [US] Routine Exams 07/28/23 08:47 Taken - Procedures and Test Procedures and Tests throughout Hospitalization: Therapy Orders & Screens 07/28/23 07:45 EKG ROUTINE Comment: Diagnosis: Chest pain, acute coronary syndrome Discharge Exam General Appearance: mild distress Neurologic Exam: alert, oriented x 3, cooperative Eye Exam: PERRL Ears, Nose, Throat Exam: normal ENT inspection Neck Exam: normal inspection Respiratory Exam: normal breath sounds, lungs clear Cardiovascular Exam: tachycardia, irregular Gastrointestinal/Abdomen Exam: soft, normal bowel sounds Male Genitalia Exam: deferred Rectal Exam: deferred Back Exam: normal inspection Extremity Exam: normal inspection Skin Exam: normal color Final Diagnosis/Problem List - Final Discharge Diagnosis/Problem (1) Chest pain Current Visit: Yes Status: Acute Code(s): R07.9 - CHEST PAIN, UNSPECIFIED (2) Atrial flutter Current Visit: Yes Status: Acute Code(s): I48.92 - UNSPECIFIED ATRIAL FLUTTER (3) Anxiety Current Visit: No Status: Acute Code(s): F41.9 - ANXIETY DISORDER, UNSPECIFIED (4) Hypothyroid Current Visit: Yes Status: Acute Code(s): E03.9 - HYPOTHYROIDISM, UNSPECIFIED (5) HLD (hyperlipidemia) Current Visit: Yes Status: Acute Code(s): E78.5 - HYPERLIPIDEMIA, UNSPECIFIED - Discharge Disposition: DC TO [facility] Condition: Fair Prescriptions: New Diltiazem HCl 100 mg/100 ml [Cardizem Drip 100 mg/100 ml D5w] 2.5 mg IV Q1H PRN PRN Reason: HEART RATE/ A-FIB Enoxaparin Sodium [Enoxaparin Sodium] 130 mg SQ Q12HT Metoprolol Succinate 25 mg Xl* [Toprol-Xl 25MG Tablets] 25 mg PO BID tablet Continue Testosterone Cypionate 1 ml IM UD Rosuvastatin Calcium 10 mg PO HS Levothyroxine Sodium 100 mcg PO DAILY Oxycodone HCl/Acetaminophen [Oxycodone-Acetaminophen 5-325] 1 each PO TID PRN PRN PRN Reason: Pain Omeprazole 20 mg PO DAILY PRN PRN PRN Reason: Belching Sitagliptin Phosphate [Januvia] 100 mg PO DAILY hydrOXYzine HCL [Hydroxyzine HCl] 100 mg PO TID PRN PRN PRN Reason: Anxiety Follow up with: SUSIE AMTTHEWS [CONSULTING PHYSICIAN] -
[2023-07-28 18:52] VITALS: BP 116/83; PULSE 88; RESP 18
[2023-07-28] MEDS ORDERED: ZOCOR 20MG PO SCH (22:00)
[2023-07-28] MEDS ORDERED: NON-FORMULARY ITEM (Rosuvastatin Calcium [Rosuvastatin Calcium] 10 MG Tablet) PO SCH (22:00)
[2023-07-28] MEDS ORDERED: Zocor 10MG PO SCH (22:00)
--- NOTE | 2023-07-29 08:27 | ECHO ---
DATE OF PROCEDURE: 07/28/2023 PROCEDURE: Complete two-dimensional echocardiogram with color Doppler and Spectral analysis. INDICATION: Chest pain, atrial flutter. DESCRIPTION OF FINDINGS: The left ventricle is normal size with mild concentric left ventricular hypertrophy. Normal left ventricular ejection fraction of 55 to 60%. The right ventricle is normal size and normal systolic function. The left atrium is normal size. The right atrium is normal size. Inferior vena cava is not well visualized. The aortic valve is not well visualized. There is no aortic stenosis and no aortic regurgitation. The mitral valve is morphologically normal. There is trace mitral regurgitation. The tricuspid valve leaflets are thin and pliable. There is trace tricuspid regurgitation. Unable to estimate right ventricular systolic pressure. The pulmonic valve is not well visualized. The aortic root is normal diameter. No pericardial effusion. The patient's rhythm appears to be atrial fibrillation or atrial flutter with heart rate ranging from the 80's to 110. IMPRESSION: 1) NORMAL LEFT VENTRICULAR SIZE WITH MODERATE LEFT VENTRICULAR HYPERTROPHY. 2) NORMAL LEFT VENTRICULAR SYSTOLIC FUNCTION WITH EJECTION FRACTION OF 55 TO 60%. 3) NORMAL RIGHT VENTRICULAR SYSTOLIC SIZE AND SYSTOLIC FUNCTION. 4) TRACE MITRAL REGURGITATION. 5) TRACE TRICUSPID REGURGITATION. UNABLE TO ESTIMATE RIGHT VENTRICULAR SYSTOLIC PRESSURE. 6) RHYTHM DEMONSTRATES ATRIAL FIBRILLATION/FLUTTER. 7) NO PERICARDIAL EFFUSION.
--- NOTE | 2023-07-29 08:43 | XRAY ---
Indication: Chest pain. Conventional contrast enhanced CTA chest performed using 100 cc Isovue 370 contrast. 2-D sagittal and coronal reformatted images obtained. Additional 3-D reformatted images obtained using separate workstation. Comparison: None Good opacification of the pulmonary arteries to include the lobar and segmental branches. No pulmonary embolus. Aorta is normal in course and caliber without arteriosclerotic disease. Heart is not enlarged. No pathologic mediastinal/hilar lymphadenopathy. Lungs clear with mild pulmonary emphysema and minimal bilateral dependent atelectasis. Bony thorax intact with minimal/mild degenerative changes throughout spine. Limited upper abdomen demonstrate fatty liver and 1.1 cm right mid renal cortical cyst. Impression: 1. Chronic findings including pulmonary emphysema, degenerative spondylosis, fatty liver, and right renal cyst. 2. Remaining CTA chest with contrast exam is negative.
== END 2023-07-28 19:15 | disposition home or self-care (01) ==
LOC: ED 22:24 → MED SURG 07-28 04:19 → ICU 07-28 08:46
PROVIDERS: ADMIT Internal Medicine; ATTEND Internal Medicine
DX: R07.9 Chest pain, unspecified (principal); I48.92 Unspecified atrial flutter; E11.9 Type 2 diabetes mellitus without complications; E78.5 Hyperlipidemia, unspecified; E03.9 Hypothyroidism, unspecified; F41.9 Anxiety disorder, unspecified; Z79.899 Other long term (current) drug therapy; Z20.828 Contact with and (suspected) exposure to other viral communicable diseases
CPT/HCPCS: 36000; 36415; 71045; 71275; 80053; 80061; 83036; 83721; 83735; 84443; 84484; 85025; 85027; 85379; 93005; 93041; 93306; 94760; 94762; 99284; J1650; J2270; Q3014; A9270-GY

== ENCOUNTER 2023-08-22 08:07 | Emergency (ER) | payer MEDICARE ==
[2023-08-22] MEDS ORDERED: Hydromorphone 1 mg/ml Injection IV ONE (08:22)
[2023-08-22 08:25] VITALS: TEMP 97.2
[2023-08-22] MEDS ORDERED: Sodium Chloride 0.9% 1000 ML 1,000 ML IV SCH (08:30)
[2023-08-22] MEDS ORDERED: Hydromorphone 1 mg/ml Injection ONE (08:31)
[2023-08-22] MEDS ORDERED: Sodium Chloride 0.9% 1000 ML 1,000 ML ONE (08:31)
[2023-08-22 09:06] LABS: Absolute Neutrophil Ct (ANC) 6.88 x10^3/uL (1.4-6.9); BASOPHIL % 0.4 % (0.0-0.4); Basophil (Absolute #) 0.04 x10^3/uL (0-0.4); Hematocrit 49.6 % (42-50); Hemoglobin 16.7 g/dL (12.5-18.0); IMMATURE GRAN # 0.03 x10^3u/L (0.00-0.03); IMMATURE GRAN % 0.3 % (0.00-0.4); Lymphocyte (Absolute #) 2.08 x10^3/uL (1.0-4.6); Lymphocytes % 20.9 % (24.0-44.0); Mean Cell Volume 95.8 fL (78-100); Mean Corpuscular Hemoglobin 32.2 pg (26-32); Mean Corpuscular Hgb Concent. 33.7 g/dL (32-36); Mean Platelet Volume 10.1 fL (7.5-11.0); Monocytes % 8.1 % (0.0-12.0); Neutrophil % 69.3 % (36.0-66.0); Platelet Count 268 x10^3/uL (150-450); Red Blood Count 5.18 x10^6/uL (4.1-5.6); Red Cell Distribution Width 12.8 % (11.5-14.0); White Blood Count 9.9 x10^3/uL (4.0-10.5)
[2023-08-22 09:20] LABS: ALBUMIN 4.4 g/dL (3.5-5.0); ANION GAP 17.2 MEQ/L (5-15); BILIRUBIN,TOTAL 1.2 mg/dL (0.2-1.3); Calcium 9.2 mg/dL (8.4-10.2); Creatinine 1 0.86 mg/dL (0.66-1.25); EST GLOMERULAR FILTRATION RATE 99.7 ML/MIN; Potassium 3.9 mmol/L (3.5-5.1); Total Protein 7.3 g/dL (6.3-8.2)
--- NOTE | 2023-08-22 09:26 | ERPHSYRPT ---
- History of Present Illness Time Seen by Provider: 08/22/23 08:40 Source: patient Exam Limitations: no limitations Patient Subjective Stated Complaint: pt here for a headache for 5 days now, no injury, recently placed on blood thinner. pt recently dx with afib. chills no fever Triage Nursing Assessment: pt alert, walked in, anxious, resp easy, dry cough, skin w/d/p. moves all ext well, Physician History: Patient is a 57-year-old white male who presents with a severe headache. The headache has been present for 5 days it is frontal in location and is very intense especially with bending forward or a cough. His headache is so severe he has been basically unable to sleep until last night. When he slept last nigh t it was for 3 to 5 hours. He was recently placed on Eliquis due to a recent diagnosis of atrial fibrillation. His history includes diabetes hypothyroidism schizophrenia and chronic back pain. Timing/Duration: day(s) (5), worse Quality: aching, throbbing Head Pain Location: frontal Severity of Pain-Max: moderate Severity of Pain-Current: moderate Recent Head Trauma: frequent headaches Modifying Factors: Improves With: position (Bending forward or coughing causes the pain to be excruciating.) Associated Symptoms: facial pain Allergies/Adverse Reactions: No Known Drug Allergies Allergy (Verified 08/22/23 08:11) Home Medications: Levothyroxine Sodium 100 mcg PO DAILY 04/01/22 [History] Omeprazole 20 mg PO DAILY PRN PRN 04/01/22 [History] Oxycodone HCl/Acetaminophen [Oxycodone-Acetaminophen 5-325] 1 each PO TID PRN PRN 04/01/22 [History] Rosuvastatin Calcium 10 mg PO HS 04/01/22 [History] Testosterone Cypionate 1 ml IM UD 04/01/22 [History] Sitagliptin Phosphate [Januvia] 100 mg PO DAILY 06/29/22 [History] hydrOXYzine HCL [Hydroxyzine HCl] 100 mg PO TID PRN PRN 12/14/22 [History] Hx Tetanus, Diphtheria Vaccination/Date Given: No Hx Influenza Vaccination/Date Given: No Hx Pneumococcal Vaccination/Date Given: No Immunizations Up to Date: Yes Travel Risk - International Travel Have you traveled outside of the country in past 3 weeks: No - Coronavirus Screening Are you exhibiting any of the following symptoms?: No Close contact with a COVID-19 positive Pt in past 14-21 Days: No - Vaccine Status Have you recieved a Covid-19 vaccination: Yes Medical Staff Services Manager: Moderna - Vaccination Dates Date of 2cond Vaccination (if applicable): 2020 - Review of Systems Constitutional: No Fever, No Chills Eyes: No Symptoms Ears, Nose, & Throat: No Symptoms Respiratory: No Cough, No Dyspnea Cardiac: No Chest Pain, No Edema, No Syncope Abdominal/Gastrointestinal: No Abdominal Pain, No Nausea, No Vomiting, No Diarrhea Genitourinary Symptoms: No Dysuria Musculoskeletal: No Back Pain, No Neck Pain Skin: No Rash Neurological: Headache, No Dizziness, No Focal Weakness, No Sensory Changes Psychological: No Symptoms Endocrine: No Symptoms All Other Systems: Reviewed and Negative - Past Medical History Pertinent Past Medical History: Yes Neurological History: No Pertinent History ENT History: No Pertinent History Cardiac History: High Cholesterol Respiratory History: No Pertinent History Endocrine Medical History: Hypothyroidism Musculoskeletal History: Degenerative Disk Disease GI Medical History: Diverticulitis, Diverticulosis, GERD Psycho-Social History: Anxiety, Bipolar, Depression, Other Male Reproductive Disorders: No Pertinent History Other Medical History: SCHIZOPHRENIA, ANXIETY/DEPRESSION, GERD. SX HX: RIGHT HAND SURGERY DUE TO TRAUMA. 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 - Past Surgical History Past Surgical History: Yes Neuro Surgical History: No Pertinent History Cardiac: No Pertinent History Respiratory: No Pertinent History Gastrointestinal: No Pertinent History Genitourinary: No Pertinent History Musculoskeletal: No Pertinent History Male Surgical History: No Pertinent History Other Surgical History: eye surgeryx2 hand surgery x2 - Social History Smoking Status: Never smoker Exposure to second hand smoke: No Drug Use: none Patient Lives Alone: No - Nursing Vital Signs Nursing Vital Signs: Initial Vital Signs Temperature 97.2 F 08/22/23 08:21 Pulse Rate 72 08/22/23 08:21 Respiratory Rate 18 08/22/23 08:21 Blood Pressure 144/98 08/22/23 08:21 O2 Sat by Pulse Oximetry 97 08/22/23 08:21 Pain Scale Pain Intensity 10 - Physical Exam General Appearance: mild distress Eye Exam: PERRL/EOMI Ears, Nose, Throat Exam: normal ENT inspection, moist mucous membranes Neck Exam: normal inspection, supple, full range of motion, No meningismus Respiratory Exam: normal breath sounds, lungs clear Cardiovascular Exam: regular rate/rhythm, normal heart sounds Gastrointestinal/Abdominal Exam: soft, No tenderness, No distention Back Exam: normal inspection, normal range of motion Mental Status Exam: alert, oriented x 3, cooperative therapist Exam: normal speech, PERRL, No facial droop Coordination/Gait Exam: normal cerebellar function Motor/Sensory Exam: no motor deficit, no sensory deficit Skin Exam: normal color, warm, dry, No rash SpO2: 97 - Course Nursing assessment & vital signs reviewed: Yes - CT Exams Head CT Interpretation: Tele-radiologist Report Ordered Tests: Active Orders 24 hr Category Date Time Status HEAD WITHOUT CONTRAST [CT] Stat Exams 08/22/23 09:20 Completed SINUSES WITHOUT CONTRAST [CT] Stat Exams 08/22/23 09:21 Completed BLOOD CULTURE Stat Lab 08/22/23 09:00 Received CBC W DIFF Stat Lab 08/22/23 08:45 Completed CMP Stat Lab 08/22/23 08:45 Completed Lactic Acid Urgent Lab 08/22/23 08:45 Completed Medication Summary Generic Name Dose Route Start Last Admin Trade Name Freq PRN Reason Stop Dose Admin Sodium Chloride 1,000 mls @ 100 mls/hr 08/22/23 08:30 08/22/23 08:34 Sodium Chloride 0.9% 1000 Ml IV 09/21/23 08:29 100 mls/hr .Q10H AGUS Administration Discontinued Medications Generic Name Dose Route Start Last Admin Trade Name Freq PRN Reason Stop Dose Admin Ceftriaxone Sodium 1,000 mg 08/22/23 10:08 Ceftriaxone Sodium 1000 Mg Inj Vial IM 08/22/23 10:09 STAT ONE Droperidol 1.25 mg 08/22/23 08:22 08/22/23 08:34 Droperidol 5 Mg/2 Ml Vial IV 08/22/23 08:23 1.25 mg STAT ONE Administration Droperidol Confirm 08/22/23 08:31 Droperidol 5 Mg/2 Ml Vial Administered 08/22/23 08:32 Dose 5 mg .ROUTE .STK-MED ONE Hydromorphone HCl 1 mg 08/22/23 08:22 08/22/23 08:35 Hydromorphone 1 Mg/1ml Inj IV 08/22/23 08:23 1 mg STAT ONE Administration Hydromorphone HCl Confirm 08/22/23 08:31 Hydromorphone 1 Mg/1ml Inj Administered 08/22/23 08:32 Dose 1 mg .ROUTE .STK-MED ONE Lab/Rad Data: Laboratory Result Diagrams 08/22/23 08:45 08/22/23 08:45 Laboratory Results 08/22/23 08/22/23 08/22/23 Range/Units 09:01 08:45 08:45 WBC (4.0-10.5) x10^3/uL RBC (4.1-5.6) x10^6/uL Hgb (12.5-18.0) g/dL Hct (42-50) % MCV (78-100) fL MCH (26-32) pg MCHC (32-36) g/dL RDW (11.5-14.0) % Plt Count (150-450) x10^3/uL MPV (7.5-11.0) fL Gran % (36.0-66.0) % Immature Gran % (Auto) (0.00-0.4) % Nucleat RBC Rel Count (0.00-0.1) % Eos # (Auto) (0-0.5) x10^3/uL Immature Gran # (Auto) (0.00-0.03) x10^3u/L Absolute Lymphs (auto) (1.0-4.6) x10^3/uL Absolute Monos (auto) (0.0-1.3) x10^3/uL Absolute Nucleated RBC (0.00-0.01) x10^3u/L Lymphocytes % (24.0-44.0) % Monocytes % (0.0-12.0) % Eosinophils % (0.00-5.0) % Basophils % (0.0-0.4) % Absolute Granulocytes (1.4-6.9) x10^3/uL Basophils # (0-0.4) x10^3/uL Sodium 137 (137-145) mmol/L Potassium 3.9 (3.5-5.1) mmol/L Chloride 105 (98-107) mmol/L Carbon Dioxide 18 L (22-30) mmol/L Anion Gap 17.2 H (5-15) MEQ/L BUN 11 (9-20) mg/dL Creatinine 0.86 (0.66-1.25) mg/dL Estimated GFR 99.7 ML/MIN Glucose 111 H (74-106) mg/dL Lactic Acid 1.1 (0.4-2.0) Calcium 9.2 (8.4-10.2) mg/dL Total Bilirubin 1.20 (0.2-1.3) mg/dL AST 23 (17-59) U/L ALT 33 (0-50) U/L Alkaline Phosphatase 55 (38-126) U/L Serum Total Protein 7.3 (6.3-8.2) g/dL Albumin 4.4 (3.5-5.0) g/dL Influenza Type A Ag NEGATIVE (NEGATIVE) Influenza Type B Ag NEGATIVE (NEGATIVE) RSV (PCR) NEGATIVE (NEGATIVE) SARS-CoV-2 (PCR) NEGATIVE (NEGATIVE) 08/22/23 Range/Units 08:45 WBC 9.9 (4.0-10.5) x10^3/uL RBC 5.18 (4.1-5.6) x10^6/uL Hgb 16.7 (12.5-18.0) g/dL Hct 49.6 (42-50) % MCV 95.8 (78-100) fL MCH 32.2 H (26-32) pg MCHC 33.7 (32-36) g/dL RDW 12.8 (11.5-14.0) % Plt Count 268 (150-450) x10^3/uL MPV 10.1 (7.5-11.0) fL Gran % 69.3 H (36.0-66.0) % Immature Gran % (Auto) 0.3 (0.00-0.4) % Nucleat RBC Rel Count 0.0 (0.00-0.1) % Eos # (Auto) 0.10 (0-0.5) x10^3/uL Immature Gran # (Auto) 0.03 (0.00-0.03) x10^3u/L Absolute Lymphs (auto) 2.08 (1.0-4.6) x10^3/uL Absolute Monos (auto) 0.80 (0.0-1.3) x10^3/uL Absolute Nucleated RBC 0.00 (0.00-0.01) x10^3u/L Lymphocytes % 20.9 L (24.0-44.0) % Monocytes % 8.1 (0.0-12.0) % Eosinophils % 1.0 (0.00-5.0) % Basophils % 0.4 (0.0-0.4) % Absolute Granulocytes 6.88 (1.4-6.9) x10^3/uL Basophils # 0.04 (0-0.4) x10^3/uL Sodium (137-145) mmol/L Potassium (3.5-5.1) mmol/L Chloride (98-107) mmol/L Carbon Dioxide (22-30) mmol/L Anion Gap (5-15) MEQ/L BUN (9-20) mg/dL Creatinine (0.66-1.25) mg/dL Estimated GFR ML/MIN Glucose (74-106) mg/dL Lactic Acid (0.4-2.0) Calcium (8.4-10.2) mg/dL Total Bilirubin (0.2-1.3) mg/dL AST (17-59) U/L ALT (0-50) U/L Alkaline Phosphatase (38-126) U/L Serum Total Protein (6.3-8.2) g/dL Albumin (3.5-5.0) g/dL Influenza Type A Ag (NEGATIVE) Influenza Type B Ag (NEGATIVE) RSV (PCR) (NEGATIVE) SARS-CoV-2 (PCR) (NEGATIVE) - Progress Progress: unchanged Air Movement: good Blood Culture(s) Obtained: Yes Antibiotics given: Yes Medical Desision Making - Diagnostic Testing Diagnostic test were ordered, analyzed, and reviewed by me: Yes Radiological Interpretation: Reviewed by me, Teleradiologist Report - Risk of complications Low Risk: Low risk of morbidity from additional dx testing or treatment - Departure Departure Disposition: Home Clinical Impression: Sinusitis Condition: Stable Critical Care Time: No Referrals: JAVI BEJARANO [Primary Care Provider] - Follow up/PCP as directed Instructions: Sinusitis, Adult (DC) Prescriptions: Cefdinir 300 mg PO BID 10 Days #20 cap
[2023-08-22 09:46] LABS: INFLUENZA A NEGATIVE (NEGATIVE); INFLUENZA B NEGATIVE (NEGATIVE); RESPIRATORY SYNCTIAL VIRUS NEGATIVE (NEGATIVE); SARS-CoV-2 Xpert Express NEGATIVE (NEGATIVE)
--- NOTE | 2023-08-22 09:58 | XRAY ---
CLINICAL HISTORY:walker COMPARISON:None TECHNIQUE:An axial non-contrast CT scan of the brain was performed from the skull base to the high parietal region. FINDINGS: The visualized brain parenchyma shows normal appearance. Cano-white matter differentiation is maintained. No midline shifts or deformity. No intracerebral or extra axial hematoma. Normal size and configuration of the cerebral ventricles. Normal CT appearance of the posterior fossa structures namely the cerebellar hemispheres, brainstem and cerebellar peduncles. The IACs are unremarkable. The cerebello-pontine angles are clear. The pituitary gland, the pineal gland, the optic chiasm is unremarkable. The osseous structures in the skull base are unremarkable. No definite calvarium fractures. The scanned paranasal sinuses show bilateral maxillary sinusitis with a right-sided retention cyst. Opacification of the left middle ear and mastoid air cells. IMPRESSION: 1. No acute cerebral abnormality was noted. 2. The rest of the non-enhanced CT study for the brain is unremarkable. 3. The scanned paranasal sinuses show bilateral maxillary sinusitis with a right-sided retention cyst. 4. Opacification of the left middle ear and mastoid air cells. Electronically Signed by: Chito James MD. (08/22/2023 08:57:49 BOTTOMING ROOM SUPERVISOR)
--- NOTE | 2023-08-22 10:06 | XRAY ---
CLINICAL HISTORY:walker COMPARISON:None TECHNIQUE:A non-Contrast CT scan of the paranasal sinuses was performed, with sagittal and coronal multiplanar reconstruction. FINDINGS: Nasal Septum: mild rightwards deviation. Turbinates: Thickening of the mucosa covering both inferior turbinates. No evidence of yahaira bullosa or paradoxical curvature. Uncinate Processes: No deviation or bulla formation. O-M UNIT: Infundibula and hiatus semilunaris are widely patent on the right side and attennauted on the left side. SINUSES: The sphenoid, and ethmoid air cells are well pneumatized. Bilateral maxillary mucosal thickening is noted. Right maxillary retention cyst. Fovea Ethmoidalis: Normal position. Fovea ethmoidalis and cribriform plate are not low lying Nasopharynx: Unremarkable. Facial Bones: Unremarkable. Left middle ear soft tissue density consistent with otitis media. Left mastoid air cells sclerosis and opacification consistent with left mastoiditis. IMPRESSION: 1. Bilateral frontal and maxillary mucosal thickening is noted. 2. Right maxillary retention cyst. 3. Left middle ear soft tissue density consistent with otitis media. 4. Left mastoid air cells sclerosis and opacification consistent with left mastoiditis. 5. Mild right wards deviation of the nasal spetum. Electronically Signed by: Chito James MD. (08/22/2023 09:05:08 CHEF DE FROID)
[2023-08-22] MEDS ORDERED: Rocephin 1000 MG INJ IM ONE (10:08)
[2023-08-22] MEDS ORDERED: ROCEPHIN 1 Gm-D5w 50 ml Bag** 1 G/50 ML IVPB IV ONE (10:10)
[2023-08-22] MEDS ORDERED: ROCEPHIN 1 Gm-D5w 50 ml Bag** 1 G/50 ML IVPB IV STA (10:12)
[2023-08-22 10:59] VITALS: BP 133/80; PULSE 63; RESP 20; O2SAT 96
== END 2023-08-22 11:05 | disposition home or self-care (01) ==
LOC: ED 08:07
DX: J32.9 Chronic sinusitis, unspecified (principal); R51.9 Headache, unspecified; E11.9 Type 2 diabetes mellitus without complications; Z79.01 Long term (current) use of anticoagulants; Z79.891 Long term (current) use of opiate analgesic; Z79.84 Long term (current) use of oral hypoglycemic drugs; Z79.899 Other long term (current) drug therapy; Z20.828 Contact with and (suspected) exposure to other viral communicable diseases
CPT/HCPCS: 0241U; 36415; 70450; 70486; 80053; 83605; 85025; 87040; 96365; 96374; 96375; 99284; J0696; J1170

== ENCOUNTER 2024-05-06 04:47 | Emergency (ER) | payer MEDICARE ==
--- NOTE | 2024-05-06 05:22 | ERPHSYRPT ---
- History of Present Illness Source: patient, family, old records (Outpatient records from March 13, 2024) Patient Subjective Stated Complaint: headache, body aches, back pain, bilateral hip pain Triage Nursing Assessment: pt ambulated to room with slow gait, pt alert and oriented x3, skin pwd, pt c/o body aches that started less than 24 hrs ago, headache x1 month that is getting worked up outpatient through Dr. Valencia. pt also c/o chronic back and bilateral hip pain. Dr. Valencia prescribed patient topamax recently that patient is no longer taken because per patient the medication does not work for him. Timing/Duration: week(s) (Present in the last 4 to 6 weeks), worse Severity: moderate Modifying Factors: Improves With: nothing Associated Symptoms: chest pain, headaches, malaise, weakness, other (Generalized body aches) Hx Tetanus, Diphtheria Vaccination/Date Given: No Hx Influenza Vaccination/Date Given: Yes Hx Pneumococcal Vaccination/Date Given: Yes <MARIANO CASTORENA - Last Filed: 05/06/24 06:27> - History of Present Illness Exam Limitations: no limitations <TORI SORENSON - Last Filed: 05/06/24 10:15> - History of Present Illness Time Seen by Provider: 05/06/24 05:05 Physician History: This is an obese 58-year-old white male patient of Dr. Craven and pain specialist Dr. Valencia who has been having severe headaches that have been intermittent but also intense and global in location. Patient is to have an MRI of the brain as an outpatient. In the last 24 hours his headache has been severe despite using oxycodone that he uses on a daily basis, back pain and bodyaches. He has suffered no acute fall or trauma. Last evening, he had associated severe left anterior chest pain that was sharp and present for short while then resolved. He has no chest pain this morning. However, he does have coronary artery disease, history of atrial fibrillation on Eliquis and a pacemaker in place. He states that the pacemaker was placed because of his bradycardia. Patient has a history of hypertension, CHF, gastroesophageal reflux disease, diabetes, hyperlipidemia and hypothyroidism. He has not had any fevers. He does not have nausea vomiting or diarrhea symptoms. Patient is weak and fatigued. I reviewed old records and outpatient records in this patient. His most recent CT scan of the head without contrast here at [facility] was in August 2023 which showed no acute intracranial abnormality. He did did have evidence of bilateral sinusitis and opacification of the left middle ear and mastoid. Patient states in the last 2 to 3 days he has not taken any of his medication because he just does not feel well. (MARIANO CASTORENA) Allergies/Adverse Reactions: No Known Drug Allergies Allergy (Verified 08/22/23 08:11) Home Medications: Levothyroxine Sodium 100 mcg PO DAILY 04/01/22 [History] Omeprazole 20 mg PO DAILY PRN PRN 04/01/22 [History] Oxycodone HCl/Acetaminophen [Oxycodone-Acetaminophen 5-325] 1 each PO QID PRN PRN 04/01/22 [History] Apixaban [Eliquis] 5 mg PO BID 05/06/24 [History] Atorvastatin Calcium 40 mg PO DAILY 05/06/24 [History] Dapagliflozin Propanediol [Farxiga] 10 mg PO DAILY 05/06/24 [History] Loratadine [Claritin] 10 mg PO DAILY 05/06/24 [History] Ranolazine [Ranolazine ER] 1,000 mg PO BID 05/06/24 [History] Sertraline HCl 50 mg [Zoloft 50 mg Tablet] 50 mg PO DAILY 05/06/24 [History] Sitagliptin Phosphate [Januvia] 100 mg PO DAILY 05/06/24 [History] Topiramate 25 mg [Topamax 25 MG] 25 mg PO BID 05/06/24 [History] Travel Risk - International Travel Have you traveled outside of the country in past 3 weeks: No - Emerging Infectious Disease Are you exhibiting symptoms associated with any current EIDs: Yes Symptoms: Headaches/Body Aches/ <MARIANO CSATORENA - Last Filed: 05/06/24 06:27> - Review of Systems Constitutional: Malaise, Weakness Eyes: No Symptoms Ears, Nose, & Throat: No Symptoms Respiratory: No Symptoms Cardiac: Chest Pain (Last evening but now has resolved) Genitourinary Symptoms: No Symptoms Musculoskeletal: Arthralgias, Myalgias Skin: No Symptoms Neurological: Headache Psychological: Depression Endocrine: No Symptoms Hematologic/Lymphatic: No Symptoms Immunological/Allergic: No Symptoms All Other Systems: Reviewed and Negative <MARIANO CASTORENA - Last Filed: 05/06/24 06:27> - Past Medical History Pertinent Past Medical History: Yes Neurological History: No Pertinent History ENT History: No Pertinent History Cardiac History: High Cholesterol Respiratory History: No Pertinent History Endocrine Medical History: Hypothyroidism Musculoskeletal History: Degenerative Disk Disease GI Medical History: Diverticulitis, Diverticulosis, GERD History: No Pertinent History Psycho-Social History: Anxiety, Bipolar, Depression, Other Male Reproductive Disorders: No Pertinent History Other Medical History: SCHIZOPHRENIA,. 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 - Past Surgical History Past Surgical History: Yes Neuro Surgical History: No Pertinent History Cardiac: Pacemaker Respiratory: No Pertinent History Gastrointestinal: No Pertinent History Genitourinary: No Pertinent History Musculoskeletal: No Pertinent History Male Surgical History: No Pertinent History Other Surgical History: eye surgeryx2 hand surgery x2 - Social History Smoking Status: Never smoker Exposure to second hand smoke: No Drug Use: none Patient Lives Alone: No - Social Determinants of Health Will the patient participate in the screening: Yes Do you worry about a steady place to live?: No Do you have any problems with any of the following?: No known problems In the past 12 months,have you had to go without utilities?: No Transportation Issues: No Has anyone in your support network made you feel unsafe?: No Have you or anyone in your house had to go without enough: No <MARIANO CASTORENA - Last Filed: 05/06/24 06:27> - Physical Exam General Appearance: no apparent distress, alert, anxiety, obese Eye Exam: PERRL/EOMI, eyes nml inspection Ears, Nose, Throat Exam: normal ENT inspection, moist mucous membranes Neck Exam: normal inspection, non-tender, supple, full range of motion Respiratory Exam: normal breath sounds, lungs clear, airway intact, No chest tenderness, No respiratory distress Cardiovascular Exam: regular rate/rhythm, normal heart sounds, normal peripheral pulses Gastrointestinal/Abdomen Exam: soft, normal bowel sounds, No tenderness Rectal Exam: not done Back Exam: normal inspection, normal range of motion, No CVA tenderness, No vertebral tenderness Extremity Exam: normal inspection, normal range of motion, pelvis stable Neurologic Exam: alert, oriented x 3, cooperative, door serviceman II-XII nml as tested, nml cerebellar function, nml station & gait, sensation nml, depressed mood/affect Skin Exam: normal color, warm, dry Lymphatic Exam: No adenopathy SpO2 Interpretation: normal SpO2: 99 O2 Delivery: Room Air <MARIANO CASTORENA - Last Filed: 05/06/24 06:27> - Physical Exam Eye Exam: other (Fundi benign, visual field intact - no visual symptoms) Neck Exam: No meningismus, No Brudzinski, No Kernig's Respiratory Exam: No accessory muscle use, No prolonged expirations, No rhonchi, No wheezing, No stridor Cardiovascular Exam: No edema, No pulse deficit Neurologic Exam: alert, oriented x 3, door serviceman II-XII nml as tested, normal mood/affect, nml cerebellar function, nml station & gait, sensation nml, No motor deficits, No sensory deficit Skin Exam: No rash, No petechiae <TORI SORENSON - Last Filed: 05/06/24 10:15> - Nursing Vital Signs Nursing Vital Signs: Initial Vital Signs Temperature 97.5 F 05/06/24 04:53 Pulse Rate 65 05/06/24 04:53 Respiratory Rate 18 05/06/24 04:53 Blood Pressure 134/70 05/06/24 04:53 O2 Sat by Pulse Oximetry 99 05/06/24 04:53 Pain Scale Pain Intensity 10 - Course Nursing assessment & vital signs reviewed: Yes <MARIANO CASTORENA - Last Filed: 05/06/24 06:27> - Course Nursing assessment & vital signs reviewed: Yes EKG Interpreted by Me: Sinus Rhythm, NORMAL AXIS, Non-specific ST Changes, Other (IVCD and pacer. ) - Radiology Exams Chest X-ray Interpretation: Interpreted by me, Reviewed by me, Infiltrates - CT Exams Head CT Interpretation: Tele-radiologist Report, No/Intracranial Hemorrhag, Other (right max cyst without change per rad - pt informed f/u PMDs) <TORI SORENSON - Last Filed: 05/06/24 10:15> Ordered Tests: Active Orders 24 hr Category Date Time Status EKG-ER Only STAT Care 05/06/24 05:40 Active IV Insertion STAT Care 05/06/24 05:39 Active Pulse Oximetry (ED) STAT Care 05/06/24 05:22 Active CHEST 1 VIEW (PORTABLE) Stat Exams 05/06/24 05:42 Taken HEAD WITHOUT CONTRAST [CT] Stat Exams 05/06/24 08:51 Completed BLOOD CULTURE Stat Lab 05/06/24 04:22 Received BNPII [NT PRO BNPII] Stat Lab 05/06/24 05:18 Completed CBC W DIFF Stat Lab 05/06/24 05:18 Completed CMP Stat Lab 05/06/24 05:18 Completed D-DIMER QUANTITATIVE Stat Lab 05/06/24 05:20 Completed MAG [MAGNESIUM] Stat Lab 05/06/24 05:18 Completed MONO SCREEN Stat Lab 05/06/24 05:18 Completed TROPONIN Q4H Lab 05/06/24 05:18 Completed TROPONIN Q4H Lab 05/06/24 09:46 Received TROPONIN Q4H Lab 05/06/24 13:45 Ordered TSH, 3RD Generation Stat Lab 05/06/24 05:18 Completed Medication Summary Discontinued Medications Generic Name Dose Route Start Last Admin Trade Name Freq PRN Reason Stop Dose Admin Hydromorphone HCl 1 mg 05/06/24 05:39 05/06/24 05:56 Hydromorphone 1 Mg/1ml Inj IV 05/06/24 05:40 1 mg STAT ONE Administration Hydromorphone HCl Confirm 05/06/24 05:55 Hydromorphone 1 Mg/1ml Inj Administered 05/06/24 05:56 Dose 1 mg .ROUTE .STK-MED ONE Hydromorphone HCl 1 mg 05/06/24 07:31 05/06/24 07:43 Hydromorphone 1 Mg/1ml Inj IV 05/06/24 07:32 1 mg STAT ONE Administration Hydromorphone HCl Confirm 05/06/24 07:42 Hydromorphone 1 Mg/1ml Inj Administered 05/06/24 07:43 Dose 1 mg .ROUTE .STK-MED ONE Hydromorphone HCl 1 mg 05/06/24 09:40 05/06/24 09:45 Hydromorphone 1 Mg/1ml Inj IV 05/06/24 09:41 1 mg STAT ONE Administration Hydromorphone HCl Confirm 05/06/24 09:44 Hydromorphone 1 Mg/1ml Inj Administered 05/06/24 09:45 Dose 1 mg .ROUTE .STK-MED ONE Loratadine 10 mg 05/06/24 08:24 05/06/24 08:32 Loratadine 10 Mg Tablet PO 05/06/24 08:25 10 mg STAT ONE Administration Ondansetron HCl 4 mg 05/06/24 05:39 05/06/24 05:56 Ondansetron Hcl 4 Mg/2 Ml Vial IV 05/06/24 05:40 4 mg STAT ONE Administration Ondansetron HCl Confirm 05/06/24 05:54 Ondansetron Hcl 4 Mg/2 Ml Vial Administered 05/06/24 05:55 Dose 4 mg .ROUTE .STK-MED ONE Lab/Rad Data: Laboratory Result Diagrams 05/06/24 05:18 05/06/24 05:18 Laboratory Results 05/06/24 05/06/24 05/06/24 Range/Units 05:20 05:18 05:18 WBC (4.23-9.07) x10^3/uL RBC (4.63-6.08) x10^6/uL Hgb (13.7-17.5) g/dL Hct (40.1-51.0) % MCV (79.0-92.2) fL MCH (25.7-32.2) pg MCHC (32.3-36.5) g/dL RDW (11.6-14.4) % Plt Count (163-337) x10^3/uL MPV (9.4-12.4) fL Gran % (34.0-67.9) % Immature Gran % (Auto) (0.001-0.429) % Nucleat RBC Rel Count (0.00-0.2) % Eos # (Auto) (0.04-0.54) x10^3/uL Immature Gran # (Auto) (0.001-0.031) x10^3u/L Absolute Lymphs (auto) (1.32-3.57) x10^3/uL Absolute Monos (auto) (0.30-0.82) x10^3/uL Absolute Nucleated RBC (0.00-0.012) x10^3u/L Lymphocytes % (21.8-53.1) % Monocytes % (5.3-12.2) % Eosinophils % (0.8-7.0) % Basophils % (0.2-1.2) % Absolute Granulocytes (1.78-5.38) x10^3/uL Basophils # (0.01-0.08) x10^3/uL D-Dimer < 0.19 (0.0-0.50) mg/L Sodium (135-145) mmol/L Potassium (3.5-5.1) mmol/L Chloride (98-107) mmol/L Carbon Dioxide (22-30) mmol/L Anion Gap (5-15) MEQ/L BUN (9-20) mg/dL Creatinine (0.66-1.25) mg/dL Estimated GFR ML/MIN Glucose (74-106) mg/dL Calcium (8.4-10.2) mg/dL Magnesium (1.6-2.3) mg/dL Total Bilirubin (0.2-1.3) mg/dL AST (17-59) U/L ALT (0-50) U/L Alkaline Phosphatase (38-126) U/L Troponin I < 0.012 (0.000-0.033) ng/mL NT-Pro-B Natriuret Pep 195 (<300) pg/mL Serum Total Protein (6.3-8.2) g/dL Albumin (3.5-5.0) g/dL Free T4 (0.78-2.19) ng/dL TSH 3rd Generation 0.423 L (0.470-4.680) mIU/L Monoscreen (NEGATIVE) Influenza Type A Ag (NEGATIVE) Influenza Type B Ag (NEGATIVE) RSV (PCR) (NEGATIVE) SARS-CoV-2 (PCR) (NEGATIVE) Group A Strep Antibody (NEGATIVE) Slides for Path Review 05/06/24 05/06/24 05/06/24 Range/Units 05:18 05:18 05:18 WBC (4.23-9.07) x10^3/uL RBC (4.63-6.08) x10^6/uL Hgb (13.7-17.5) g/dL Hct (40.1-51.0) % MCV (79.0-92.2) fL MCH (25.7-32.2) pg MCHC (32.3-36.5) g/dL RDW (11.6-14.4) % Plt Count (163-337) x10^3/uL MPV (9.4-12.4) fL Gran % (34.0-67.9) % Immature Gran % (Auto) (0.001-0.429) % Nucleat RBC Rel Count (0.00-0.2) % Eos # (Auto) (0.04-0.54) x10^3/uL Immature Gran # (Auto) (0.001-0.031) x10^3u/L Absolute Lymphs (auto) (1.32-3.57) x10^3/uL Absolute Monos (auto) (0.30-0.82) x10^3/uL Absolute Nucleated RBC (0.00-0.012) x10^3u/L Lymphocytes % (21.8-53.1) % Monocytes % (5.3-12.2) % Eosinophils % (0.8-7.0) % Basophils % (0.2-1.2) % Absolute Granulocytes (1.78-5.38) x10^3/uL Basophils # (0.01-0.08) x10^3/uL D-Dimer (0.0-0.50) mg/L Sodium (135-145) mmol/L Potassium (3.5-5.1) mmol/L Chloride (98-107) mmol/L Carbon Dioxide (22-30) mmol/L Anion Gap (5-15) MEQ/L BUN (9-20) mg/dL Creatinine (0.66-1.25) mg/dL Estimated GFR ML/MIN Glucose (74-106) mg/dL Calcium (8.4-10.2) mg/dL Magnesium 2.1 (1.6-2.3) mg/dL Total Bilirubin (0.2-1.3) mg/dL AST (17-59) U/L ALT (0-50) U/L Alkaline Phosphatase (38-126) U/L Troponin I (0.000-0.033) ng/mL NT-Pro-B Natriuret Pep (<300) pg/mL Serum Total Protein (6.3-8.2) g/dL Albumin (3.5-5.0) g/dL Free T4 1.36 (0.78-2.19) ng/dL TSH 3rd Generation (0.470-4.680) mIU/L Monoscreen POSITIVE (NEGATIVE) Influenza Type A Ag (NEGATIVE) Influenza Type B Ag (NEGATIVE) RSV (PCR) (NEGATIVE) SARS-CoV-2 (PCR) (NEGATIVE) Group A Strep Antibody (NEGATIVE) Slides for Path Review 05/06/24 05/06/24 05/06/24 Range/Units 05:18 05:18 05:18 WBC 7.7 (4.23-9.07) x10^3/uL RBC 4.56 L (4.63-6.08) x10^6/uL Hgb 14.9 (13.7-17.5) g/dL Hct 44.0 (40.1-51.0) % MCV 96.5 H (79.0-92.2) fL MCH 32.7 H (25.7-32.2) pg MCHC 33.9 (32.3-36.5) g/dL RDW 13.6 (11.6-14.4) % Plt Count 190 (163-337) x10^3/uL MPV 9.6 (9.4-12.4) fL Gran % 82.4 H (34.0-67.9) % Immature Gran % (Auto) 0.3 (0.001-0.429) % Nucleat RBC Rel Count 0.0 (0.00-0.2) % Eos # (Auto) 0 L (0.04-0.54) x10^3/uL Immature Gran # (Auto) 0.02 (0.001-0.031) x10^3u/L Absolute Lymphs (auto) 0.31 L (1.32-3.57) x10^3/uL Absolute Monos (auto) 0.99 H (0.30-0.82) x10^3/uL Absolute Nucleated RBC 0.00 (0.00-0.012) x10^3u/L Lymphocytes % 4.1 L (21.8-53.1) % Monocytes % 12.9 H (5.3-12.2) % Eosinophils % 0.0 L (0.8-7.0) % Basophils % 0.3 (0.2-1.2) % Absolute Granulocytes 6.31 H (1.78-5.38) x10^3/uL Basophils # 0.02 (0.01-0.08) x10^3/uL D-Dimer (0.0-0.50) mg/L Sodium 136 (135-145) mmol/L Potassium 3.6 (3.5-5.1) mmol/L Chloride 104 (98-107) mmol/L Carbon Dioxide 23 (22-30) mmol/L Anion Gap 12.3 (5-15) MEQ/L BUN 14 (9-20) mg/dL Creatinine 1.04 (0.66-1.25) mg/dL Estimated GFR 82.2 ML/MIN Glucose 125 H (74-106) mg/dL Calcium 9.3 (8.4-10.2) mg/dL Magnesium (1.6-2.3) mg/dL Total Bilirubin 1.20 (0.2-1.3) mg/dL AST 29 (17-59) U/L ALT 65 H (0-50) U/L Alkaline Phosphatase 86 (38-126) U/L Troponin I (0.000-0.033) ng/mL NT-Pro-B Natriuret Pep (<300) pg/mL Serum Total Protein 7.1 (6.3-8.2) g/dL Albumin 4.4 (3.5-5.0) g/dL Free T4 (0.78-2.19) ng/dL TSH 3rd Generation (0.470-4.680) mIU/L Monoscreen (NEGATIVE) Influenza Type A Ag NEGATIVE (NEGATIVE) Influenza Type B Ag NEGATIVE (NEGATIVE) RSV (PCR) NEGATIVE (NEGATIVE) SARS-CoV-2 (PCR) POSITIVE A (NEGATIVE) Group A Strep Antibody NOT DETECTED (NEGATIVE) Slides for Path Review YES <MARIANO CASTORENA - Last Filed: 05/06/24 06:27> - Progress Progress: improved, re-examined Counseled pt/family regarding: lab results, diagnosis, need for follow-up, rad results <TORI SORENSON - Last Filed: 05/06/24 10:15> - Progress Progress Note: 05/06/24 05:53 My medical decision making and the assignment of moderate complexity to this patient's medical issue today, is based on review of the patient's past medical history, review of the patient's medication list, review of patient drug allergy list, history present illness and physical findings on examination. The workup in this patient includes intravenous line placement, CBC, CMP, magnesium level, troponin level, BNP level, urinalysis, free T4, TSH, viral swabs, monotest, twelve-lead EKG and chest x-ray. Differential diagnosis includes but is not limited to depression, electrolyte abnormalities, arrhythmia, anemia, CHF exacerbation, myocardial infarction, viral illness 05/06/24 06:27 I am transferring care to Dr. Sorenson at shift change. He will follow-up on the laboratory and radiographic study results and make final disposition. (MARIANO CASTORENA) 05/06/24 07:17 pt taken over from Dr. Castorena at change of shift after introduction , discussion of pending labs and findings so far and adding D dimer. 05/06/24 07:24 Risks/benefits of testing with CBC, CMP, Mg, Trop, D Dimer, CXR EKG, Thyroids, Viral swabs, [place], and IVF Tx, with pt and available family and they wish to proceed. Results discussed. 05/06/24 07:47 The patient reports that he has had no further CP today and that the reported episode of that symptom is common for him chronically and his Dr.s are aware. I discussed that this could represent a worsening of his underlying heart condition and/or a new event as yet undetected even with no major EKG changes, no current CP, and no enzyme findings and serious conditions such as these and blood clots could be evolving undetected especially with Covid as an increased risk factor- he voices understanding and prefers outpt f/u with PMDs rather than admission in hospital or further testing in ER at this time and he has the capacity to make this choice with normal mental status at this time. 05/06/24 08:43 Also had discussion of risks/benefits of paxlovid and other covid meds including styeroids and pt prefers to hold off on these at this time to avoid complications from sidew effects including steroids affecting DM and he has the capacity to make these choices. 05/06/24 08:46 Pt also reports that the headaches have been for over one month and no trauma, but he is on blood thinner and increased risks for ICH/ and he wishes to proceed - rad risks also discussed and he accepts. He understands he will still need MRI with PMDs as planned to complete w/u for other causes. (TORI SORENSON) Medical Desision Making - Discussion of managment Reviewed:: Test results, Need for additional workup Agreed on:: Treatment plan, need for follow-up - Diagnostic Testing Diagnostic test were ordered, analyzed, and reviewed by me: Yes Radiological Interpretation: Interpreted by me, Reviewed by me - Risk of complications The pt has a mod risk of morbidity or mortality based on: Need for prescription drug management The pt has a high risk of morbidity or mortality based on: Decision regarding hospitilization or escalation of hosp level of care <TORI SORENSON - Last Filed: 05/06/24 10:15> - Departure Departure Disposition: Home Critical Care Time: No <MARIANO CASTORENA - Last Filed: 05/06/24 06:27> - Departure Departure Disposition: Home Critical Care Time: No <TORI SORENSON - Last Filed: 05/06/24 10:15> - Departure Clinical Impression: Mononucleosis, COVID-19 virus infection, subacute headache, Mononucleosis syndrome Condition: Good Referrals: JONE CRAVEN MD [Primary Care Provider] - Follow up/PCP as directed Instructions: Mononucleosis, Headache, Adult (DC), COVID-19 ED, COVID-19 in adults - Discharge instructions Additional Instructions: Follow-up with your DrHeide this week and monitor your progress- return meantime or notify your Drs. if you get short of breath - call 911 for chest pain or severe symptoms. Although the heart tests enzymes are negative, there still can be heart problems evolving undetected so follow-up with your Dr.s is important. Although the CT was also negative - it is still important to see your Drs. for the MRI to exclude other problems that might cause your headache symptoms. And return meantime if headache worsens as this could represent delayed findings not seen on the CT scan. Follow Covid instructions and self quarantine as per those instructions.
[2024-05-06 05:33] LABS: Absolute Neutrophil Ct (ANC) 6.31 x10^3/uL (1.78-5.38); BASOPHIL % 0.3 % (0.2-1.2); Basophil (Absolute #) 0.02 x10^3/uL (0.01-0.08); Eosinophil (Absolute #) 0 x10^3/uL (0.04-0.54); Hemoglobin 14.9 g/dL (13.7-17.5); IMMATURE GRAN # 0.02 x10^3u/L (0.001-0.031); IMMATURE GRAN % 0.3 % (0.001-0.429); Lymphocyte (Absolute #) 0.31 x10^3/uL (1.32-3.57); Lymphocytes % 4.1 % (21.8-53.1); Mean Cell Volume 96.5 fL (79.0-92.2); Mean Corpuscular Hemoglobin 32.7 pg (25.7-32.2); Mean Corpuscular Hgb Concent. 33.9 g/dL (32.3-36.5); Mean Platelet Volume 9.6 fL (9.4-12.4); Monocyte (Absolute #) 0.99 x10^3/uL (0.30-0.82); Monocytes % 12.9 % (5.3-12.2); Neutrophil % 82.4 % (34.0-67.9); Platelet Count 190 x10^3/uL (163-337); Red Blood Count 4.56 x10^6/uL (4.63-6.08); Red Cell Distribution Width 13.6 % (11.6-14.4); White Blood Count 7.7 x10^3/uL (4.23-9.07)
[2024-05-06 05:39] LABS: ALBUMIN 4.4 g/dL (3.5-5.0); ANION GAP 12.3 MEQ/L (5-15); BILIRUBIN,TOTAL 1.2 mg/dL (0.2-1.3); Calcium 9.3 mg/dL (8.4-10.2); Creatinine 1 1.04 mg/dL (0.66-1.25); EST GLOMERULAR FILTRATION RATE 82.2 ML/MIN; Potassium 3.6 mmol/L (3.5-5.1); Total Protein 7.1 g/dL (6.3-8.2)
[2024-05-06 05:45] LABS: Group A Strep NOT DETECTED (NEGATIVE)
[2024-05-06] MEDS ORDERED: Zofran 4 MG/2 ML VIAL ONE (05:54)
[2024-05-06] MEDS ORDERED: Hydromorphone 1 mg/ml Injection ONE ×3 (05:55→09:44)
[2024-05-06] MEDS: Zofran 4 MG/2 ML VIAL IV ONE (05:56)
[2024-05-06] MEDS: Hydromorphone 1 mg/ml Injection IV ONE ×3 (05:56→09:45)
[2024-05-06 05:59] LABS: INFLUENZA A NEGATIVE (NEGATIVE); INFLUENZA B NEGATIVE (NEGATIVE); RESPIRATORY SYNCTIAL VIRUS NEGATIVE (NEGATIVE)
[2024-05-06 06:14] LABS: SARS-CoV-2 Xpert Express POSITIVE (NEGATIVE)
[2024-05-06 06:46] LABS: TSH, 3RD Generation 0.423 mIU/L (0.470-4.680)
[2024-05-06] MEDS: CLARITIN 10 MG PO ONE (08:32)
[2024-05-06 09:00] VITALS: TEMP 98.5
[2024-05-06 09:07] LABS: Slide Review 1 YES
--- NOTE | 2024-05-06 09:58 | XRAY ---
CLINICAL HISTORY: Headache on Elliqus COMPARISON: CT head dated 08/22/2023. TECHNIQUE: Axial non-contrast CT scan of the brain was performed from the skull base to the high parietal region with multiplanar reconstructions. One of the following dose reduction techniques were utilized for this exam: Automated exposure control, adjustment of the mA and/or kV according to patient size, use of iterative reconstruction. FINDINGS: Brain Parenchyma: Normal attenuation of the cerebral hemispheres, cerebellum, and brainstem. No evidence of acute infarct, hemorrhage, or mass effect. No abnormal areas of hypo- or hyperattenuation. Ventricular System: Ventricles are normal in size and configuration. No evidence of hydrocephalus or ventricular enlargement. Subarachnoid Spaces: Normal sulci and cisterns. No evidence of subarachnoid hemorrhage or extra-axial fluid collections. Cerebellum and Brainstem: Normal size and signal. No masses, lesions, or areas of abnormal signal. Orbits: Normal appearance of the globes, optic nerves, and extraocular muscles. No evidence of orbital masses or abnormal signals. Sinuses: Retention cyst of the right maxillary sinus. Mild mucosal thickening of left maxillary sinus. Mastoid Air Cells: Opacification of some left mastoid cells, previously mentioned. Skull and Meninges: Normal skull morphology. No evidence of meningeal thickening. IMPRESSION: 1. No acute cerebral abnormality was noted. 2. Redemonstration of right maxillary retention cyst and opacification of the left middle ear mastoid air cells. 3. No interval changes are seen. Electronically Signed by: Chito James MD. (05/06/2024 09:53:57 EDT)
[2024-05-06 10:17] VITALS: BP 120/60; PULSE 61; RESP 15; O2SAT 97
--- NOTE | 2024-05-06 19:52 | XRAY ---
Indication: Chest pain. Headache. Back pain. Comparison: July 27, 2023 Portable apical lordotic chest remains clear. Heart not enlarged with new left dual-lead pacemaker. Bony thorax intact again with mild degenerative changes. Impression: Continued nonacute chest.
== END 2024-05-06 10:26 | disposition home or self-care (01) ==
LOC: ED 04:47
DX: U07.1 COVID-19 (principal); B27.90 Infectious mononucleosis, unspecified without complication; R51.9 Headache, unspecified; M79.10 Myalgia, unspecified site; M54.9 Dorsalgia, unspecified; R53.1 Weakness; I11.0 Hypertensive heart disease with heart failure; I50.9 Heart failure, unspecified; E11.9 Type 2 diabetes mellitus without complications; E78.5 Hyperlipidemia, unspecified; Z79.01 Long term (current) use of anticoagulants; Z79.891 Long term (current) use of opiate analgesic; Z79.84 Long term (current) use of oral hypoglycemic drugs; Z79.899 Other long term (current) drug therapy
CPT/HCPCS: 0241U; 36000; 36415; 70450; 71045; 80053; 83735; 83880; 84439; 84443; 84484; 85025; 85379; 86308; 87040; 87651; 93005; 94760; 96374; 96376; 99284; 96375; J1170; J2405; A9270-GY